=== PATIENT | male | born 1960 | race Caucasian/White ===

== ENCOUNTER 2025-09-09 22:09 | Inpatient (IN) | payer MEDICARE, MEDICAID, SELFPAY ==
[2025-09-09 22:12] VITALS: BP 133/81; PULSE 71; TEMP 36.8; O2SAT 96; BMI 24.4
--- NOTE | 2025-09-09 23:01 | PD.EDANKLE ---
Lower Extremity Injury RME/HPI General Chief Complaint: Ankle/Foot Injury Stated Complaint: FOOT PROBLEM Time Seen by Provider: 09/09/25 22:49 Arrival date/time: 09/09/25 22:09 65M with history of homelessness presents to ED with dirty feet, from working in the [employer]. Patient also wants some food/water. Limitations: no limitations and altered mental status Related Data Home Medications ?Medication ?Instructions ?Recorded ?Confirmed No Known Home Medications 11/19/18 11/19/18 Allergies Allergy/AdvReac Type Severity Reaction Status Date / Time No Known Allergies Allergy Verified 09/09/25 22:16 Review of Systems Musculoskeletal Musculoskeletal: Reports as per HPI and Reports back pain Past Medical History Past Medical History NEUROLOGIC: Negative Neurological Disorders or Seizures CARDIAC: Negative Cardiac Disorders or Congestive Heart Failure RESPIRATORY: Negative Chronic Obstructive Pulmonary Disease (COPD) GASTROINTESTINAL: Positive Gastrointestinal Disorders and Hemorrhoids GENITOURINARY: Negative Genitourinary Disorders or Renal Disease MUSCULOSKELETAL: Positive Arthritis; Negative Musculoskeletal Disorders ENDOCRINE: Negative Endocrine Disorders, Diabetes Mellitus Type 1 or Diabetes Mellitus Type 2 HEMATOLOGIC: Negative Blood Disorders PSYCHO/SOCIAL: Positive Depression (NO MEDS) OTHER HISTORY: Negative Falls, Blood Transfusions, Blood Transfusion Reaction or Anesthesia Reactions Family History FAMILY HISTORY: Positive Family Cardiac Disorders (mother-SC) and Family Cancer (brother-bladder) Surgical History SURGICAL: Positive Joint Replacement (right knee), Arthroscopy and Vasectomy Social History SMOKING STATUS: Current every day smoker ED Exam General Limitations: Present no limitations and altered mental status General appearance: Present alert, in no apparent distress and other (discheveled) Head Head exam: Present atraumatic Neck Neck exam: Present normal inspection, full ROM and trachea midline Chest Chest inspection: Present normal inspection and symmetric chest wall rise Neurological Exam Neurological exam: Present alert Psychiatric Psychiatric exam: Present normal affect and normal mood Skin Skin exam: Present warm, dry, intact and normal color Course Quality Measures none Orders Category Date Time Status Patient Condition Routine Admission 09/10/25 03:[address] in Observation Status Routine Admission 09/10/25 03:18 Active Activity as Tolerated Routine Care 09/10/25 03:19 Ordered COVID-19 Screening Questionnaire NOW Care 09/10/25 02:28 Active Decision to Admit X1 Care 09/10/25 02:28 Completed Intake and Output QSHIFT Care 09/10/25 03:30 Ordered Notify provider NEEDED Care 09/10/25 03:18 Active Vital Signs, Non-Routine Q6H Care 09/10/25 03:30 Ordered Vital Signs, Non-Routine Q6H Care 09/10/25 09:30 Ordered Vital Signs, Non-Routine Q6H Care 09/10/25 15:30 Ordered Vital Signs, Non-Routine Q6H Care 09/10/25 21:[address] head/brain wo con Stat Exams 09/10/25 00:[address] lumbar spine wo con Stat Exams 09/10/25 00:[address] thoracic spine wo con Stat Exams 09/10/25 00:28 Taken Alcohol, Blood Medical Stat Lab 09/10/25 01:12 Completed Ammonia Stat Lab 09/10/25 01:12 Completed Basic Metabolic Panel AM DRAW Lab 09/10/25 05:00 Ordered CBC AM DRAW Lab 09/11/25 05:00 Ordered CBC Stat Lab 09/10/25 01:12 Completed CMP [Comprehensive Metabolic Panel] Stat Lab 09/10/25 01:12 Completed Creatine Kinase AM DRAW Lab 09/10/25 05:00 Ordered Creatine Kinase Stat Lab 09/10/25 01:12 Completed Drug Screen,Urine Stat Lab 09/10/25 00:29 Ordered Lactate (Lactic Acid) Stat Lab 09/10/25 01:12 Completed Procalcitonin Stat Lab 09/10/25 01:12 Completed Urinalysis, C/S if Indicated Stat Lab 09/10/25 00:29 Ordered hs-CRP* Stat Lab 09/10/25 Ordered Acetaminophen Tab [Tylenol Tab] Med 09/10/25 03:17 Active 650 mg PO Q6H PRN Morphine* Inj Med 09/10/25 03:17 Active 2 mg IVP Q2H PRN Sodium Chloride 0.9% 1000 ml [Ns] 1,000 ml Med 09/10/25 03:30 Active IV 125 mls/hr bisacodyL [Dulcolax] Med 09/10/25 03:17 Active 10 mg PO QDAY PRN mg Hyd/Al Hyd/Carolee Susp [Maalox Susp] Med 09/10/25 03:17 Active 30 ml PO Q6H PRN Code Status Routine Oth 09/10/25 03:17 Ordered Vital Signs Vital signs: Vital Signs Temperature 98.2 F 09/09/25 22:12 Pulse Rate 71 09/09/25 22:12 Blood Pressure 133/81 H 09/09/25 22:12 Pulse Oximetry (%) 96 09/09/25 22:12 Oxygen Delivery Method Room Air 09/09/25 22:12 O2 at 96% on RA and WNLs Extremity Injury, Lower MDM Narrative MDM Narrative:: 65M with history of homelessness presents to ED with dirty feet, from working in the [employer]. Patient also wants some food/water. Physical exam reveals generally discheveled appearance. Feet are very dirty, but no open wounds, redness, or swelling. Speech somewhat delayed. Gait mostly normal. Patient is afebrile, calm, and alert. Spoke to daughter, Usha, who states he has been missing/homeless intermittently due to alcohol/drug use. Patient also has a strong family history of Alzheimer's. Spoke to patient again, who states his back has been hurting. Patient is redirectable, but speech/though process wanders. Telerad CTs unremarkable. No leukocytosis and no gross anemia. CMP unremarkable except for CK>1k. Ammonia normal. Procal/lactate normal. Spoke to ROLAN Rice MD, who will admit patient. Patient data External records reviewed:: None Clinical information provided by:: patient Social determinants that could affect healthcare access:: housing Patient has the following chronic illnesses:: homelessness How is presenting disease/condition affected by chronic disease/condition?: exacerbated by Evaluation data The following diagnostics were reviewed and interpreted by me:: lab results and radiology exam(s) Lab and/or radiology exams considered but not ordered:: ordered Interpretation Summary: above Medications / Prescriptions Medications or Prescriptions considered but not ordered:: ordered Medication administrations:: Medication Administration History Acetaminophen (Acetaminophen 325 Mg Tablet) 650 mg PO Q6H PRN PRN Reason: Fever >101.5 Stop: 10/10/25 03:16 Al Hydrox/Mg Hydrox/Simethicone (Mg Hyd/Al Hyd/Carolee (Maalox Reg) Susp 30 Ml Udc) 30 ml PO Q6H PRN PRN Reason: Indigestion Stop: 10/10/25 03:16 Bisacodyl (Bisacodyl 5 Mg Tabec) 10 mg PO QDAY PRN; Protocol PRN Reason: CONSTIPATION Stop: 10/10/25 03:16 Sodium Chloride (Ns) 1,000 mls @ 125 mls/hr IV .Q8H STEPHENIE Stop: 10/10/25 03:29 Morphine Sulfate (Morphine Sulf Inj 4 Mg/Ml Vial) 2 mg IVP Q2H PRN PRN Reason: PAIN SCALE 7-10 (Severe Stop: 09/15/25 03:16 above Consultations Consultation(s) initiated? (list below): Yes Diagnosis Extremity Injury, Lower Differential Diagnosis: ankle sprain and strain, acute internal derangement of knee, fracture of femur, fracture of hip, puncture wound of foot, fracture of toe, ankle fracture and other (homelessness, rhabdo, elevated creatine kinase) Most likely diagnosis given after review of the tests above:: rhabdo, homelessness Admission Indicated Admission indicated?: not indicated Admission Request Was there a request for admission?: No Disposition Plan Disposition Plan: Admit Discharge Plan Plan Patient Disposition: Other Care w/in Hosp ([facility]) Prescriptions/Referrals Prescriptions/Med Rec: No Action No Known Home Medications Referrals: No Primary/Family,Physician [Primary Care Provider] - In 1 week Problem List Clinical Impression: Rhabdomyolysis, Homelessness Patient/Caregiver Discharge Instructions Print Language: Ivorian Stand Alone Forms: Sandrine Award Info., Patient Portal Info Letter
[2025-09-10] VITALS (7 sets, daily range): BP systolic 102–120; BP diastolic 57–71; PULSE 60–98; RESP 16–18; TEMP 36.6–37.1; O2SAT 94–100; BMI 24.0
--- NOTE | 2025-09-10 00:28 | XR_ITS ---
Examination: CT brain head without contrast. 2-D sagittal coronal reconstructions Date and time of exam: September 10, 2025, 0048 hours INDICATIONS: Onset altered mental status today CTDI: vol (mGy): 51.70 DLP: (mGycm): 1127 Technique: Multiple CT axial sections of the brain have been obtained, 5 mm slice thickness. Contrast has not been administered. 2-D sagittal, coronal reconstructions have been obtained Low dose protocols were performed. One or more of the following dose reduction techniques were used; automated exposure control, adjustment of the mA and/or KV according to patient size, use of iterative reconstruction technique. Findings: No significant ventricular enlargement. Intra-axial or extra-axial hemorrhage density is not seen. No mass effect or midline shift Basal cisterns are not remarkable. Fourth ventricle is midline. Cranial vault intact. Impression: Negative for acute hemorrhage, mass effect or midline shift Advise clinical correlation and follow-up accordingly
--- NOTE | 2025-09-10 00:28 | XR_ITS ---
Examination: CT thoracic spine, without contrast. 2-D sagittal reconstructions. 2-D coronal reconstructions. 3-D reconstructions. Date and time of exam: September 10, 2025, 0058 hours INDICATIONS: Onset mid back pain today CTDI: vol (mGy): 62.05 DLP: (mGycm): 2494 Technique: Multiple 1.25 mm axial sections of the thoracic spine without intravenous contrast have been obtained. 2-D sagittal and coronal reconstructions have been obtained. 3-D reconstructions have been obtained. Low dose protocols were performed. One or more of the following dose reduction techniques were used; automated exposure control, adjustment of the mA and/or KV according to patient size, use of iterative reconstruction technique. Findings: Severe osteopenia Mild to moderate diffuse thoracic degenerative disc disease No thoracic fracture Mild to moderate thoracic spondylosis Thoracic pedicles and laminae appear intact No localized enlargement thoracic cord There is no significant focal thoracic disc protrusion IMPRESSION: Mild to moderate diffuse thoracic degenerative disc disease There is no significant focal thoracic disc protrusion Suggest follow-up MRI thoracic spine without contrast as clinically warranted
--- NOTE | 2025-09-10 00:28 | XR_ITS ---
Examination: CT lumbar spine, without contrast. 2-D sagittal reconstructions. 2-D coronal reconstructions. 3-D reconstructions. Date and time of exam: September 10, 2025, 0102 hours INDICATIONS: Onset severe back pain today CTDI: vol (mGy): 50.25 DLP: (mGycm): 1955 Technique: Multiple 1.25 mm axial sections of the lumbar spine without intravenous contrast have been obtained. 2-D sagittal and coronal reconstructions have been obtained. 3-D reconstructions have been obtained. Low dose protocols were performed. One or more of the following dose reduction techniques were used; automated exposure control, adjustment of the mA and/or KV according to patient size, use of iterative reconstruction technique. Findings: Severe osteopenia No lumbar vertebral body compression fracture Moderate to advanced diffuse lumbar degenerative disc disease, most severe L2-3, L3-L4 No spondylolisthesis Lumbar pedicles, laminae, transverse and posterior spinous processes are intact L5-S1 5 mm central lumbar disc bulge contiguous with the right and left S1 nerve roots L4-L5 4 mm central lumbar disc bulge L3-L4 no disc protrusion L2-L3 2 mm central subarticular osteophyte disc complex L1-L2 no disc protrusion IMPRESSION: Diffuse moderate to advanced lumbar degenerative disc disease, most severe at L2-L3, L3-L4 L5-S1 5 mm central lumbar disc bulge contiguous with the right and left S1 nerve roots L4-L5 4 mm central lumbar disc bulge No lumbar fracture
--- NOTE | 2025-09-10 01:24 | PRELIM_ITS ---
CT scan of the head without intravenous contrast (axial sections with sagittal and coronal reformats) September 10, 2025 at 0047 hours Clinical history: AMS. Comparison: No prior study is available for comparison. Findings: There is no evidence of intracranial hemorrhage, mass effect or midline shift. There are periventricular white matter hypodensities, compatible with chronic small vessel ischemia. There is mild volume loss. The calvarium is unremarkable. The mastoid air cells and the visualized paranasal sinuses are clear. Impression: No evidence of intracranial hemorrhage, mass effect or midline shift. Periventricular chronic small vessel ischemia and volume loss. Report Electronically Signed By: Huseyin Pimentel 09/10/2025 1:23:31 AM [EST]
[2025-09-10 01:29] LABS: Lactate (Lactic Acid) 1.8 mMol/L (0.4-2.0)
[2025-09-10 01:33] LABS: Basophils # (Auto) 0.0 Thou/mm3 (0.0-0.2); Basophils % (Auto) 0 % (0-2.5); Eosinophils # (Auto) 0.0 Thou/mm3 (0.0-0.5); Eosinophils % (Auto) 0 % (0-10); Hematocrit 36.5 % (41.0-53.0); Hemoglobin 12.5 g/dL (13.5-16.0); Immature Granulocytes Auto 0.04 Thou/mm3 (0.00-0.00); Lymphocytes # (Auto) 1.5 Thou/mm3 (1.0-4.8); Lymphocytes % (Auto) 17 % (10-50); Mean Corpuscular HGB Conc 34.2 g/dl (31.0-37.0); Mean Corpuscular Hemoglobin 34.2 pg (25.0-35.0); Mean Corpuscular Volume 100 fL (80-100); Monocytes # (Auto) 0.7 Thou/mm3 (0.0-0.8); Monocytes % (Auto) 8 % (0-12); Neutrophils # (Auto) 6.6 Thou/mm3 (1.8-7.7); Neutrophils % (Auto) 74 % (37-80); Nucleated Red Blood Cell # 0.00 Thou/mm3 (0.00-0.00); Nucleated Red Blood Cell % 0 /100 WBC (0); Platelet Count 260 Thou/mm3 (140-440); RDW Standard Deviation 51.3 fL (35.1-43.9); Red Blood Count 3.66 Miln/mm3 (4.50-5.90); White Blood Count 8.9 Thou/mm3 (3.8-10.6)
--- NOTE | 2025-09-10 01:42 | PRELIM_ITS ---
CT scan of the lumbar spine without intravenous contrast (axial sections with sagittal and coronal reformats) September 10, 2025 0058 hours Clinical History: Back pain Comparison: No prior study is available for comparison. Findings: There is straightening of the lumbar lordosis. There are multilevel moderate degenerative changes in the form of marginal osteophytes, decreased disc height and facet arthropathy, predominantly at L2/3 level with disc osteophyte complex causing mild spinal canal and moderate to severe bilateral neural foraminal narrowing. There are diffuse disc bulges at L3/4 and L4/5 levels causing mild spinal canal and moderate bilateral neural foraminal narrowing.There is posterior disc bulges at L5/S1 level causing mild spinal canal and mild bilateral neural foraminal narrowing.There are degenerative changes and Schmorl's nodes at the inferior end plate of L2 and the superior end plate of L3. There is multilevel gas density within the intervertebral discs, denoting disc degeneration. There is no acute fracture or subluxation. The vertebral body height are normal. The soft tissues are unremarkable. The abdominal aorta and iliac arteries demonstrate atheromatous calcification without evidence of aneurysm. Impression: No evidence of acute pathology. Multilevel degenerative disc disease predominantly at L2/3, L3/4 and L4/5 levels as described. Recommend clinical correlation. Other findings as described above. Report Electronically Signed By: Huseyin Pimentel 09/10/2025 1:41:22 AM [EST]
--- NOTE | 2025-09-10 01:54 | PRELIM_ITS ---
CT scan of the thoracic spine without intravenous contrast (axial sections with sagittal and coronal reformats) September 10, 2025 0049 hours Clinical History: Back pain. Comparison: No prior study is available for comparison. Findings: The thoracic vertebrae are normally aligned. There are multilevel moderate degenerative changes in the form of marginal osteophytes and facet arthropathy. There are multilevel Schmorl's nodes, the largest seen at the inferior end plate of T10. There is gas density within T10/11, T11/12 and T12/L1 intervertebral discs, denoting disc degeneration. The vertebral body and intervertebral disc height is maintained. There is central and left paracentral disc protrusion at T7/8 level causing mild spinal canal narrowing. No neural foraminal narrowing. There is right paracentral disc protrusion at T10/11 level causing mild spinal canal narrowing. No neural foraminal narrowing. There is asymmetric diffuse disc bulge at T11/12 level causing mild spinal canal and mild left neural foraminal narrowing. There is no acute fracture or subluxation. There is no pre or paravertebral soft tissue abnormality. Impression: No evidence of acute pathology. Degenerative changes as described. Report Electronically Signed By: Huseyin Pimentel 09/10/2025 1:53:59 AM [EST]
[2025-09-10 02:06] LABS: Ammonia < 10 uMol/L (11-32)
[2025-09-10 02:14] LABS: Alanine Aminotransferase 27 U/L (10-49); Albumin, Serum 4.0 gm/dL (3.4-4.8); Anion Gap 13 (7-16); Aspartate Amino Transferase 71 U/L (0-34); BUN/Creatinine Ratio 20 Ratio (12-20); Bilirubin,Total 1.1 mg/dL (0.3-1.2); Blood Urea Nitrogen 24 mg/dL (9-23); Calcium 9.0 mg/dL (8.3-10.6); Carbon Dioxide 22.7 mMol/L (20.0-31.0); Chloride 102 mMol/L (98-107); Creatine Kinase 1124 U/L (34-171); Creatinine (Component) 1.2 mg/dL (0.6-1.3); Estimated Creatinine Clearance 67.5 mL/min (>60); Glucose 73 mg/dL (74-106); Osmolality,Calculated 278 (275-295); Potassium 3.7 mMol/L (3.4-5.1); Sodium 138 mMol/L (136-145); Total Protein 6.7 gm/dL (5.7-8.2); eGFR > 60 See Note
[2025-09-10 02:15] LABS: Albumin/Globulin Ratio 1.5 (1.2-2.2); Alcohol, Blood Medical < 3.0 mg/dL (0-10.0); Alkaline Phosphatase 74 U/L (46-116); Calcium (Corrected) 9.0 mg/dL (8.5-10.1); Globulin 2.7 gm/dL (2.3-3.5)
[2025-09-10 02:17] LABS: Procalcitonin 0.09 ng/ml (0.0-0.49)
--- NOTE | 2025-09-10 02:58 | PD.HHHP ---
Documentation for date of: 09/10/25 HPI - Hospitalist History of Present Illness History of present illness: Source: ED records and the patient CC: Back pain, foot pain, confusion HPI: The patient is a 65-year- male with alcohol use, arthritis, gallbladder surgery. The patient presents with back pain, foot pain, confusion. Onset of symptom is unknown. Duration is unknown. Back pain described as 5/5 in intensity. Aggravating/relieving factors, none reported. Associated symptoms include __. Pertinent negative-no fever no headache. Patient is homeless. Patient is not oriented. He is not a good historian. He has alcohol use. There was no recent procedures and no change in medications. No use of OTC medications There was no recent travel and no sick contacts. No recent trauma or falls. His blood work showed mild anemia and high creatinine kinase possible rhabdo myelitis.. Patient is FULL CODE. Past medical history: No diabetes, no hypertension, no stroke, no cancer Surgical history: no appendectomy, +gallbladder surgery Personal history: non smoker, + ETOH drinker, no recreational drug use. Family history: no diabetes, no hypertension, no heart disease, no cancer. Review of Systems Review of Systems Systems Reviewed: All systems reviewed, normal except as documented Meds Home Medications and Allergies Home Medications ?Medication ?Instructions ?Recorded ?Confirmed ?Type No Known Home Medications 11/19/18 11/19/18 History Allergies Allergy/AdvReac Type Severity Reaction Status Date / Time No Known Allergies Allergy Verified 09/09/25 22:16 Exam Vital Signs Temp Pulse Resp BP Pulse Ox O2 Del Method 98.1 F 60 18 119/69 98 Room Air 09/10/25 02:54 09/10/25 02:54 09/10/25 02:54 09/10/25 02:54 09/10/25 02:54 09/10/25 02:54 Gen: alert, not not oriented, has word finding difficulty Skin: warm, good turgor, no rash HEENT: NCAT, LILLI, no nasoaural discharge, dry mucous membranes Neck: supple, no JVD, no thyromegaly Lungs: clear to auscultation CV: regular rate and rhythm, no murmurs, no edema Abd: soft and non tender, normoactive bowel sounds : no CVA tenderness Ext: no calf tenderness. Neuro: alert, oriented, non focal Psych: calm, not agitated. flat affect. Results - Hospitalist Labs Diagrams: 09/10/25 01:12 09/10/25 01:12 Labs: Short CBC 09/10/25 Range/Units 01:12 WBC 8.9 (3.8-10.6) Thou/mm3 Hgb 12.5 L (13.5-16.0) g/dL Hct 36.5 L (41.0-53.0) % Plt Count 260 (140-440) Thou/mm3 BMP 09/10/25 01:12 Sodium 138 Potassium 3.7 Chloride 102 Carbon Dioxide 22.7 BUN 24 H Creatinine 1.2 Glucose 73 L Calcium 9.0 Cardiac Enzymes 09/10/25 Range/Units 01:12 Total Creatine Kinase 1124 H (34-171) U/L Liver Function 09/10/25 Range/Units 01:12 Total Bilirubin 1.1 (0.3-1.2) mg/dL AST 71 H (0-34) U/L ALT 27 (10-49) U/L Alkaline Phosphatase 74 (46-116) U/L Albumin 4.0 (3.4-4.8) gm/dL Assessment & Plan -Hospitalist Patient Synopsis Assessment and plan: 1. Back pain, early rhabdomyolysis - obs for IV fluid, recheck CK in am. CT om thoracic anc lumbar spine are pending. Per Marge JIN CT imaging results were negative. - PT eval. - IV Morphine for pain control. - PT eval. 2. Foot pain - obtain xray both feet - CRP 3. Homelessness - will refer to social services designee 4. 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 Give thiamine and folic acid. - advised alcohol cesssation Quality Measures Quality Measures none Advance care planning discussed with:: patient, child and other
[2025-09-10] MEDS: SODIUM CHLORIDE 0.9% 1000 ML 1,000 ML 125 ML IV ×3 (03:34→21:20)
--- NOTE | 2025-09-10 05:03 | PC.NURSE ---
DR. ARTURO NGUYNE POC DISCUSSED, MD NOTIFY PT LAST DRINK WAS ALCOHOL DRINK WAS YESTERDAY, BLISTER TO LEFT KNEE, AND PT IS MISSING A DIET. MD WILL REVIEW CHART ADD A DIET. PT IS ALERT AND ORIENTED TO SELF.
[2025-09-10 06:28] LABS: Anion Gap 9 (7-16); BUN/Creatinine Ratio 22 Ratio (12-20); Blood Urea Nitrogen 24 mg/dL (9-23); Calcium 8.4 mg/dL (8.3-10.6); Carbon Dioxide 24.9 mMol/L (20.0-31.0); Chloride 103 mMol/L (98-107); Creatine Kinase 960 U/L (34-171); Creatinine (Component) 1.1 mg/dL (0.6-1.3); Estimated Creatinine Clearance 73.6 mL/min (>60); Glucose 174 mg/dL (74-106); Osmolality,Calculated 281 (275-295); Potassium 3.2 mMol/L (3.4-5.1); Sodium 137 mMol/L (136-145); eGFR > 60 See Note
[2025-09-10] MEDS: THIAMINE 100 MG TABLET PO ×2 (08:30→20:07)
[2025-09-10] MEDS: FOLIC ACID 1 MG TABLET PO ×2 (08:30→20:07)
[2025-09-10 09:00] LABS: Magnesium 1.7 mg/dL (1.6-2.6); Phosphorous 2.7 mg/dL (2.4-5.1)
--- NOTE | 2025-09-10 10:00 | PC.NURSE ---
Dr. Yanes notified of no diet ordered, wound care consult request for blister to left knee and request for CIWA score protocol due to pt stating last drink is yesterday and he is a daily drinker. stated he will review chart.
--- NOTE | 2025-09-10 13:45 | PC.SS ---
RECORD CENTER COORDINATOR conducted phone contact with patient?s daughter, Usha Rodriguez ; to conduct initial assessment due to patient?s level of confusion.? Patient is homeless.? Per daughter, patient has been in [facility] for approximately 1.5 months.? Patient had been residing in [place] with son, Song.? Following Song?s demise patient re-located to [place].? Patient had previously been residing in [place], [place].? Patient possesses a history of alcohol dependency.? Patient does not utilize DME to assist with ambulation.? Patient does not require the use of home oxygen.? Patient possesses ability to complete ADL?s independently.? Patient possesses SSI supplementation.? Patient also possesses a pickup which is currently impounded in [place], [place].? Patient?s surrogate medical decision maker is daughter, Usha Rodriguez.? Daughter resides in [place].? Daughter reports that patient has misplaced cell phone causing contact barrier with patient.? Discussed long term placement with daughter upon patient?s discharge.? Daughter acknowledged d/c plan to long term or inpatient rehabilitation to address alcohol dependency.? RECORD CENTER COORDINATOR informed daughter that patient would have to agree to either discharge options.? No further discharge needs identified by the patient.? No further intervention required at this time, social psychologist will be available to address any further concerns.? Next of Kin: Usha Rodriguez D/C Plan: Pending
--- NOTE | 2025-09-10 13:50 | PC.SS ---
TICKET PRINTER informed by bedside nurse plan to start patient on CIWA protocal.
--- NOTE | 2025-09-10 14:15 | PD.HHPROG ---
Documentation for date of: 09/10/25 Subjective - Hospitalist Subjective Interval history: Patient seen and examined at bedside this morning. Appears comfortable and denies any new complaints. Patient is able to answer question and follow commands but is confused and unable to carry out conversation normally. CIWA score has been 4-10 throughout the day. Started on CIWA protocol with oral lorazepam. Also started on diet and and wound care for his knee wound. With patient's profound confusion, also appears weak although gait was not fully evaluated, does not have any ophthalmoplegia but with history of alcohol abuse, cannot rule out Wernicke's encephalopathy, we will start him on high-dose thiamine. Continues to be on aggressive IV hydration for rhabdomyolysis. Creatinine kinase is downtrending. Review of Systems Review of Systems ROS Unobtainable: unobtainable due to mental status Exam Vital Signs Temp Pulse Resp BP Pulse Ox O2 Del Method 98.4 F 63 18 111/71 94 L Room Air 09/10/25 20:00 09/10/25 20:00 09/10/25 20:00 09/10/25 20:00 09/10/25 20:00 09/10/25 20:00 Narrative Gen: alert, able to answer his name, date of but appears confused and unable to answer all questions., Unable to follow commands. Skin: warm, good turgor, no rash HEENT: NCAT, LILLI, no nasoaural discharge, dry mucous membranes Neck: supple, no JVD, no thyromegaly Lungs: clear to auscultation bilaterally, no wheezing or crackles CV: regular rate and rhythm, no murmurs, no edema Abd: soft and non tender, normoactive bowel sounds Ext: no calf tenderness. Neuro: Alert but confused, unable to carry out full conversation, forgetful Psych: calm, not agitated Objective - Hospitalist Labs Diagram: 09/10/25 01:12 09/10/25 05:25 Labs: Laboratory Results - last 24 hr 09/10/25 09/10/25 09/10/25 01:12 05:25 17:53 WBC 8.9 RBC 3.66 L Hgb 12.5 L Hct 36.5 L MCV 100 MCH 34.2 MCHC 34.2 RDW Std Deviation 51.3 H Plt Count 260 Neut % (Auto) 74 Lymph % (Auto) 17 [place] % (Auto) 8 Eos % (Auto) 0 Baso % (Auto) 0 Neut # (Auto) 6.6 Lymph # (Auto) 1.5 [place] # (Auto) 0.7 Eos # (Auto) 0.0 Baso # (Auto) 0.0 Immature Gran # (Auto) 0.04 H Absolute Nucleated RBC 0.00 Immature Gran % 1 H Nucleated RBC % 0 Sodium 138 137 Potassium 3.7 3.2 L D Chloride 102 103 Carbon Dioxide 22.7 24.9 Anion Gap 13 9 BUN 24 H 24 H Creatinine 1.2 1.1 Estim Creat Clear Calc 67.5 73.6 eGFR > 60 > 60 BUN/Creatinine Ratio 20 22 H Glucose 73 L 174 H D Calculated Osmolality 278 281 Lactic Acid 1.8 Calcium 9.0 8.4 Corrected Calcium 9.0 Phosphorus 2.7 Magnesium 1.7 Total Bilirubin 1.1 AST 71 H ALT 27 Alkaline Phosphatase 74 Ammonia < 10 L Total Creatine Kinase 1124 H 960 H D Total Protein 6.7 Albumin 4.0 Globulin 2.7 Albumin/Globulin Ratio 1.5 Procalcitonin 0.09 Ur Collection Type Clean Catch Urine Color Yellow Urine Clarity Clear Urine pH 6.0 Ur Specific [place] 1.015 Urine Protein Negative Urine Glucose (UA) Negative Urine Ketones Negative Urine Blood Negative Urine Nitrite Negative Urine Bilirubin Negative Urine Urobilinogen (Auto) 3.0 Ur Leukocyte Esterase Negative Urine RBC < 1 Urine WBC 1 Ur Squamous Epith Cells 0 Urine Bacteria None Ur Culture Indicated? Not Indicated Urine Opiates Screen Negative Urine Fentanyl Screen Negative Ur Barbiturates Screen Negative U Amphetamin/Meth Scrn Negative U Benzodiazepines Scrn Negative U Cocaine Metab Screen Negative U Marijuana (THC) Screen Negative Ethyl Alcohol < 3.0 Assessment & Plan Patient Synopsis Patient is a 65 years old male with past medical history of alcohol abuse, arthritis, gallbladder surgery who presented with back pain, foot pain and confusion. Admitted overnight for management of rhabdomyolysis, alcohol abuse. #Back pain, early rhabdomyolysis - Continues to be on IV hydration, creatinine level downtrending. - Lumbar spine CT showed diffuse moderate to advanced lumbar degenerative disc disease, most severe at L2-L3, L3-L4; L5-S1 5 mm central lumbar disc bulge contiguous with the right and left S1 nerve roots, L4-L5 4 mm central lumbar bulge disc. Thoracic spine CT also showed mild to moderate diffuse thoracic degenerative disc disease. Unable to assess reliably about lower extremity neurological examination as patient is confused - PT eval. - IV Morphine for pain control. #Alcohol use with possible Wernicke, Korsakoff encephalopathy -Continues to be on CIWA protocol. - Started on thiamine 500 mg 3 times daily - CIWA score has been around 4-10, we will monitor closely - Social service referral, we will direct care counselor extensively regarding alcohol cessation once patient's mentation improves #Foot pain #New blister Wound care following #Homelessness - Referral to health and social care teacher CODE STATUS: Full code DVT prophylaxis: Heparin SC every 12 hours Diet: Regular diet Disposition: Continues to be inpatient for management of rhabdomyolysis, alcohol withdrawal, possible Wernicke's encephalopathy Mery Yanes MD Time Spent with Patient Time: Total time spent is greater than 50% in coordination of care (as documented) at patient's floor/unit and/or counseling patient: Time with patient: Greater than 35 minutes Reason for Continued Stay Reason for continued stay: further monitoring Quality Measures Quality Measures none Advance care planning discussed with:: patient
--- NOTE | 2025-09-10 17:32 | PC.PT ---
Patient is safe to ambulate to the bathroom and in the halls with 1 staff and is encouraged to use a FWW but he most likely will refuse. RN made aware.
[2025-09-10 18:52] LABS: Collection Type, Urine Clean Catch; Squamous Epithelial Cell,Urine 0 /hpf (0-5)
[2025-09-10 19:02] LABS: Bilirubin,Urine Negative (Negative); Blood,Urine Negative (Negative); Clarity,Urine Clear (Clear/Hazy); Color,Urine Yellow (Lt Yel-Yel); Culture Indicated,Urine Not Indicated; Glucose, Urine Negative (Negative); Ketones,Urine Negative (Negative); Leukocyte Esterase,Urine Negative (Negative); Nitrite,Urine Negative (Negative); PH,Urine 6.0 (5.0-7.0); Protein,Urine Negative (Neg - Trace); RBC,Urine < 1 /hpf (0-3); Specific Gravity,Urine 1.015 (1.001-1.035); Urobilinogen,Urine 3.0 mg/dL (0.0-1.0); WBC,Urine 1 /hpf (0-5)
[2025-09-10 19:16] LABS: Amphetamine/Methamp Scrn,U Negative (Negative); Barbiturate Screen,Urine Negative (Negative); Benzodiazepines Screen,Urine Negative (Negative); Benzoylecgonine Screen, Ur Negative (Negative); Fentanyl Screen,Urine Negative (Negative); Opiate Screen,Urine Negative (Negative); THC Screen,Urine Negative (Negative)
--- NOTE | 2025-09-10 22:00 | PC.NURSE ---
Verified with pharmacist regarding the Thiamine 500mg IVP, per pharmacist it's okay to give this meds per IV push with this dosage.
--- NOTE | 2025-09-10 22:34 | PC.NURSE ---
Pt is very restless, trying to get out of bed, MD Johnson made aware, new order amde to give Haldol 2mg IM x1.
[2025-09-10] MEDS: HALOPERIDOL LACT INJ 5 MG/ML VIAL 2 MG IM (22:46)
[2025-09-11] VITALS (7 sets, daily range): BP systolic 109–132; BP diastolic 66–80; PULSE 60–73; RESP 16–19; TEMP 36.1–37.1; O2SAT 95–98; BMI 14.0
[2025-09-11] MEDS: THIAMINE INJ 100 MG/ML VIAL 2 ML 500 MG IVP ×3 (05:27→21:51)
[2025-09-11] MEDS: SODIUM CHLORIDE 0.9% 1000 ML 1,000 ML 125 ML IV (05:28)
[2025-09-11 05:56] LABS: Basophils # (Auto) 0.0 Thou/mm3 (0.0-0.2); Basophils % (Auto) 0 % (0-2.5); Eosinophils # (Auto) 0.0 Thou/mm3 (0.0-0.5); Eosinophils % (Auto) 1 % (0-10); Hematocrit 33.0 % (41.0-53.0); Hemoglobin 11.3 g/dL (13.5-16.0); Immature Granulocytes Auto 0.05 Thou/mm3 (0.00-0.00); Lymphocytes # (Auto) 1.3 Thou/mm3 (1.0-4.8); Lymphocytes % (Auto) 19 % (10-50); Mean Corpuscular HGB Conc 34.2 g/dl (31.0-37.0); Mean Corpuscular Hemoglobin 34.3 pg (25.0-35.0); Mean Corpuscular Volume 100 fL (80-100); Monocytes # (Auto) 0.6 Thou/mm3 (0.0-0.8); Monocytes % (Auto) 9 % (0-12); Neutrophils # (Auto) 4.9 Thou/mm3 (1.8-7.7); Neutrophils % (Auto) 71 % (37-80); Nucleated Red Blood Cell # 0.00 Thou/mm3 (0.00-0.00); Nucleated Red Blood Cell % 0 /100 WBC (0); Platelet Count 205 Thou/mm3 (140-440); RDW Standard Deviation 52.1 fL (35.1-43.9); Red Blood Count 3.29 Miln/mm3 (4.50-5.90); White Blood Count 6.9 Thou/mm3 (3.8-10.6)
[2025-09-11 06:27] LABS: Alanine Aminotransferase 19 U/L (10-49); Albumin, Serum 3.2 gm/dL (3.4-4.8); Albumin/Globulin Ratio 1.5 (1.2-2.2); Alkaline Phosphatase 59 U/L (46-116); Anion Gap 8 (7-16); Aspartate Amino Transferase 41 U/L (0-34); BUN/Creatinine Ratio 14 Ratio (12-20); Bilirubin,Total 0.9 mg/dL (0.3-1.2); Blood Urea Nitrogen 11 mg/dL (9-23); Calcium 8.2 mg/dL (8.3-10.6); Calcium (Corrected) 8.8 mg/dL (8.5-10.1); Carbon Dioxide 25.3 mMol/L (20.0-31.0); Chloride 108 mMol/L (98-107); Creatinine (Component) 0.8 mg/dL (0.6-1.3); Estimated Creatinine Clearance 101.3 mL/min (>60); Globulin 2.1 gm/dL (2.3-3.5); Glucose 88 mg/dL (74-106); Magnesium 1.7 mg/dL (1.6-2.6); Osmolality,Calculated 279 (275-295); Phosphorous 1.8 mg/dL (2.4-5.1); Potassium 3.6 mMol/L (3.4-5.1); Sodium 141 mMol/L (136-145); Total Protein 5.3 gm/dL (5.7-8.2); eGFR > 60 See Note
[2025-09-11] MEDS: HEPARIN SOD INJ 5000 UNIT/ML VIAL SC ×2 (08:07→20:21)
[2025-09-11] MEDS: FOLIC ACID 1 MG TABLET PO ×2 (08:07→20:21)
[2025-09-11 09:35] LABS: Creatine Kinase 364 U/L (34-171)
[2025-09-11] MEDS: NAPH,KPH MBDB 1 PACKET (1.5 GM) PO (10:07)
--- NOTE | 2025-09-11 13:38 | PD.HHPROG ---
Documentation for date of: 09/11/25 Subjective - Hospitalist Subjective Interval history: Patient seen and examined at bedside this morning. Appears comfortable. Continues to be confused, is calm and cooperative but unable to carry out conversation, also seems to have trouble with memory. CIWA score has been ranging from 4-8 but most of the exposure is coming from his confusion. Has been receiving as needed lorazepam. Patient was started on high-dose IV thiamine since yesterday. Head CT obtained on 1016 was negative for acute intracranial pathology. We will obtain neurology consult and plan continue to monitor his mentation closely. Creatinine kinase level has been downtrending nicely, 364 this morning, patient has been able to tolerate able to tolerate his diet well with good fluid intake, we will discontinue IV hydration. Review of Systems Review of Systems ROS Unobtainable: unobtainable due to mental status Exam Vital Signs Temp Pulse Resp BP Pulse Ox O2 Del Method 98.2 F 60 19 122/75 97 Room Air 09/11/25 20:00 09/11/25 20:00 09/11/25 20:00 09/11/25 20:00 09/11/25 20:00 09/11/25 12:00 Narrative Gen: alert, able to answer his name, date of but appears confused and unable to answer all questions or carry out conversation Skin: warm, good turgor, no rash HEENT: NCAT, LILLI, no nasoaural discharge, dry mucous membranes Neck: supple, no JVD, no thyromegaly Lungs: clear to auscultation bilaterally, no wheezing or crackles CV: regular rate and rhythm, no murmurs, no edema Abd: soft and non tender, normoactive bowel sounds Ext: no calf tenderness. Blisters noted around his left knee Neuro: Alert but confused, unable to carry out full conversation, forgetful, no focal neurological deficit Psych: calm, not agitated Objective - Hospitalist Labs Diagram: 09/11/25 04:38 09/11/25 04:38 Labs: Laboratory Results - last 24 hr 09/11/25 04:38 WBC 6.9 RBC 3.29 L Hgb 11.3 L Hct 33.0 L MCV 100 MCH 34.3 MCHC 34.2 RDW Std Deviation 52.1 H Plt Count 205 D Neut % (Auto) 71 Lymph % (Auto) 19 [place] % (Auto) 9 Eos % (Auto) 1 Baso % (Auto) 0 Neut # (Auto) 4.9 Lymph # (Auto) 1.3 [place] # (Auto) 0.6 Eos # (Auto) 0.0 Baso # (Auto) 0.0 Immature Gran # (Auto) 0.05 H Absolute Nucleated RBC 0.00 Immature Gran % 1 H Nucleated RBC % 0 Sodium 141 Potassium 3.6 Chloride 108 H Carbon Dioxide 25.3 Anion Gap 8 BUN 11 Creatinine 0.8 Estim Creat Clear Calc 101.3 eGFR > 60 BUN/Creatinine Ratio 14 Glucose 88 D Calculated Osmolality 279 Calcium 8.2 L Corrected Calcium 8.8 Phosphorus 1.8 L Magnesium 1.7 Total Bilirubin 0.9 AST 41 H ALT 19 Alkaline Phosphatase 59 D Total Creatine Kinase 364 H D Total Protein 5.3 L Albumin 3.2 L D Globulin 2.1 L Albumin/Globulin Ratio 1.5 Assessment & Plan Patient Synopsis Patient is a 65 years old male with past medical history of alcohol abuse, arthritis, gallbladder surgery who presented with back pain, foot pain and confusion. Admitted overnight for management of rhabdomyolysis, alcohol abuse. #Alcohol use with possible Wernicke, Korsakoff encephalopathy - Continues to be on CIWA protocol. - Continues to be on thiamine 500 mg 3 times daily - CIWA score has been around 4-8, we will monitor closely - Social service referral, we will sexual abuse counsellor extensively regarding alcohol cessation once patient's mentation improves - Patient is not showing improvement in his mentation despite IV fluids, correction of electrolytes, IV thiamine, we will obtain neurology consult #Back pain, early rhabdomyolysis - Lumbar spine CT showed diffuse moderate to advanced lumbar degenerative disc disease, most severe at L2-L3, L3-L4; L5-S1 5 mm central lumbar disc bulge contiguous with the right and left S1 nerve roots, L4-L5 4 mm central lumbar bulge disc. Thoracic spine CT also showed mild to moderate diffuse thoracic degenerative disc disease. Unable to assess reliably about lower extremity neurological examination as patient is confused - PT eval. - IV Morphine for pain control. - Creatinine level continues to downtrend, we will discontinue IV fluids #Foot pain #New blister - Wound care following - Denies foot pain currently #Homelessness - Referral to public health social worker CODE STATUS: Full code DVT prophylaxis: Heparin SC every 12 hours Diet: Regular diet Disposition: Continues to be inpatient for management of rhabdomyolysis, alcohol withdrawal, possible Wernicke's encephalopathy Mery Yanes MD Time Spent with Patient Time: Total time spent is greater than 50% in coordination of care (as documented) at patient's floor/unit and/or counseling patient: Time with patient: Greater than 35 minutes Reason for Continued Stay Reason for continued stay: further monitoring Quality Measures Quality Measures none Advance care planning discussed with:: patient
--- NOTE | 2025-09-11 19:49 | PC.NURSE ---
MD Zhu came and seen and examined the pt.
[2025-09-11] MEDS: HALOPERIDOL LACT INJ 5 MG/ML VIAL 2 MG IV (23:05)
--- NOTE | 2025-09-11 23:55 | PC.NURSE ---
Code monica initiated DT pt being agitated and pt is looking for his phone, explained to the pts that he doesnt have any phone with him when he came to the hospital and saying that he needs to find his phone.Pt walked out to the nurse station and wandering. Pt send back to the room explained to him that he was in the hospital.
--- NOTE | 2025-09-11 23:57 | ESCONSULT_ITS ---
History of Present Illness Data of Consult Requesting Physician: Doug Johnson MD Primary Care Provider: Physician No Primary/Family Consult Narrative History of present illness: Mr. Rodriguez is a 65-year- male with chronic drug and alcohol use and osteoarthritis presented with back pain, foot pain, confusion. Patient is homeless. Patient is confused, disoriented, and not a good historian. No history of recent trauma or falls. Workup in the ER: Labs showed mild anemia and elevated CK. Neurology was consulted to evaluate for altered mental status. cc:: cc: Doug Johnson MD Review of Systems Review of Systems ROS Unobtainable: unobtainable due to medical condition Past Medical History Past Medical History NEUROLOGIC: Negative Neurological Disorders or Seizures CARDIAC: Negative Cardiac Disorders or Congestive Heart Failure RESPIRATORY: Negative Chronic Obstructive Pulmonary Disease (COPD) GASTROINTESTINAL: Positive Gastrointestinal Disorders and Hemorrhoids GENITOURINARY: Negative Genitourinary Disorders or Renal Disease MUSCULOSKELETAL: Positive Arthritis; Negative Musculoskeletal Disorders ENDOCRINE: Negative Endocrine Disorders, Diabetes Mellitus Type 1 or Diabetes Mellitus Type 2 HEMATOLOGIC: Negative Blood Disorders PSYCHO/SOCIAL: Positive Depression (NO MEDS) OTHER HISTORY: Negative Falls, Blood Transfusions, Blood Transfusion Reaction or Anesthesia Reactions Family History FAMILY HISTORY: Positive Family Cardiac Disorders (mother-IA) and Family Cancer (brother-bladder) Surgical History SURGICAL: Positive Joint Replacement (right knee), Arthroscopy and Vasectomy Social History SMOKING STATUS: Current every day smoker Meds Home Medications and Allergies Home Medications ?Medication ?Instructions ?Recorded ?Confirmed ?Type No Known Home Medications 11/19/1808/25 History Allergies Allergy/AdvReac Type Severity Reaction Status Date / Time No Known Allergies Allergy Verified 09/09/25 22:16 Exam - Neurology Vital Signs Temp Pulse Resp BP Pulse Ox O2 Del Method 98.2 F 69 19 122/75 97 Room Air 09/11/25 20:00 09/11/25 22:21 09/11/25 20:00 09/11/25 20:00 09/11/25 20:00 09/11/25 12:00 Narrative Exam GENERAL APPEARANCE: Well hydrated, well-nourished in no acute distress. HEENT: Normocephalic, atraumatic, extraocular movements intact. Pupils: Equal reacting to light and accommodation NECK: Supple, no JVD or bruits. CARDIOVASULAR: Heart: S1, S2 heard, regular without S3-S4 or murmur no rubs or gallops. LUNGS/CHEST: Clear to auscultation bilaterally. No rails, rhonchi, or wheezing. Normal inspection. ABDOMEN: Soft, nontender, with normal bowel sounds. No pulsatile masses. No rebound, rigidity, or guarding. Normal inspection and palpation. EXTREMITIES: Normal inspection and palpation. No edema, clubbing or cyanosis. SKIN: Warm and dry without rashes. Normal inspection. MUSCULOSKELETAL: No cervical, thoracic, lumbar or midline bony tenderness. Normal inspection. NEURO: Alert, awake and oriented x1. Cranial nerves: II through XII grossly intact. Speech and language: Normal with no dysarthria or dysphasia. Motor system: Tone and bulk: Normal: Strength: 5 out of 5 in all 4 extremities; No pronator drift noted. Deep tendon reflexes: 2+ bilaterally symmetrical. Plantar reflex: Downgoing bilaterally. Sensory system: Intact to all modalities of sensation bilaterally. Coordination: Intact to [id number] and [id number] test bilaterally. No ataxia, no dysmetria, or dysdiadochokinesia noted. No intention tremors noted. Gait: Normal. Toe, heel, tandem walk all are normal. No signs of meningeal irritation noted. PSYCHIATRIC: Normal mood and affect. Results Labs 09/12/25 04:30 09/12/25 04:30 Labs: Short CBC 09/11/25 Range/Units 04:38 WBC 6.9 (3.8-10.6) Thou/mm3 Hgb 11.3 L (13.5-16.0) g/dL Hct 33.0 L (41.0-53.0) % Plt Count 205 D (140-440) Thou/mm3 BMP 09/11/25 04:38 Sodium 141 Potassium 3.6 Chloride 108 H Carbon Dioxide 25.3 BUN 11 Creatinine 0.8 Glucose 88 D Calcium 8.2 L Cardiac Enzymes 09/11/25 Range/Units 04:38 Total Creatine Kinase 364 H D (34-171) U/L Liver Function 09/11/25 Range/Units 04:38 Total Bilirubin 0.9 (0.3-1.2) mg/dL AST 41 H (0-34) U/L ALT 19 (10-49) U/L Alkaline Phosphatase 59 D (46-116) U/L Albumin 3.2 L D (3.4-4.8) gm/dL Assessment & Plan Assessment and plan (1) Altered mental status: Status: Acute Assessment and plan: Most likely secondary to progressive cognitive impairment with baseline dementia/chronic alcohol use/nutritional deficiency. Will follow-up with MRI brain and EEG to evaluate further. Recommend: To check B12, thiamine, folate, T4, TSH, RPR, HIV, lipid panel to for secondary causes of memory loss Report to [facility] for license suspension for safety. He needs placement for long-term as he has severe cognitive impairment Recommend to start him on donepezil 5 mg at bedtime. Consider increasing the dose after a month and subsequently add memantine for preventing progression. (2) Rhabdomyolysis: Status: Acute Assessment and plan: Improving with hydration
[2025-09-12] VITALS (7 sets, daily range): BP systolic 119–158; BP diastolic 72–89; PULSE 54–90; RESP 18–19; TEMP 36.5–37.1; O2SAT 94–97
[2025-09-12] MEDS: MIDAZOLAM INJ 1 MG/ML VIAL 2 ML 2 MG IVP (00:20)
[2025-09-12] MEDS: NICOTINE PATCH 21 MG/24 HR PATCH.TD24 TOP (00:31)
--- NOTE | 2025-09-12 01:00 | PC.NURSE ---
Suzanne ace called overhead DT pt wanting to wandering around after giving the Versed 2mg IVP. Pt pulled out his registered nurse cardiac and removed his gown. Pt put back to bed. Pt went back to sleep.
--- NOTE | 2025-09-12 02:53 | RESP.EEG ---
Pt was evaluated at this time for an EEG but Pt was being noncompliant and uncooperative. Pt had recent Code Snyder Alerts called and was given sedation to help him calm down. EEG was held at this time. CHATA Franz made aware.
[2025-09-12] MEDS: THIAMINE INJ 100 MG/ML VIAL 2 ML 500 MG IVP ×2 (05:43→13:02)
[2025-09-12 05:56] LABS: Basophils # (Auto) 0.0 Thou/mm3 (0.0-0.2); Basophils % (Auto) 1 % (0-2.5); Eosinophils # (Auto) 0.1 Thou/mm3 (0.0-0.5); Eosinophils % (Auto) 1 % (0-10); Hematocrit 34.0 % (41.0-53.0); Hemoglobin 11.6 g/dL (13.5-16.0); Immature Granulocytes Auto 0.02 Thou/mm3 (0.00-0.00); Lymphocytes # (Auto) 1.3 Thou/mm3 (1.0-4.8); Lymphocytes % (Auto) 27 % (10-50); Mean Corpuscular HGB Conc 34.1 g/dl (31.0-37.0); Mean Corpuscular Hemoglobin 34.4 pg (25.0-35.0); Mean Corpuscular Volume 101 fL (80-100); Monocytes # (Auto) 0.5 Thou/mm3 (0.0-0.8); Monocytes % (Auto) 10 % (0-12); Neutrophils # (Auto) 3.0 Thou/mm3 (1.8-7.7); Neutrophils % (Auto) 61 % (37-80); Nucleated Red Blood Cell # 0.00 Thou/mm3 (0.00-0.00); Nucleated Red Blood Cell % 0 /100 WBC (0); Platelet Count 181 Thou/mm3 (140-440); RDW Standard Deviation 51.7 fL (35.1-43.9); Red Blood Count 3.37 Miln/mm3 (4.50-5.90); White Blood Count 4.9 Thou/mm3 (3.8-10.6)
[2025-09-12 06:29] LABS: Alanine Aminotransferase 20 U/L (10-49); Albumin, Serum 3.2 gm/dL (3.4-4.8); Albumin/Globulin Ratio 1.5 (1.2-2.2); Alkaline Phosphatase 58 U/L (46-116); Anion Gap 9 (7-16); Aspartate Amino Transferase 33 U/L (0-34); BUN/Creatinine Ratio 9 Ratio (12-20); Bilirubin,Total 0.7 mg/dL (0.3-1.2); Blood Urea Nitrogen 6 mg/dL (9-23); Calcium 8.4 mg/dL (8.3-10.6); Calcium (Corrected) 9.0 mg/dL (8.5-10.1); Carbon Dioxide 25.2 mMol/L (20.0-31.0); Chloride 108 mMol/L (98-107); Creatinine (Component) 0.7 mg/dL (0.6-1.3); Estimated Creatinine Clearance 115.7 mL/min (>60); Globulin 2.2 gm/dL (2.3-3.5); Glucose 89 mg/dL (74-106); Magnesium 1.7 mg/dL (1.6-2.6); Osmolality,Calculated 279 (275-295); Phosphorous 2.3 mg/dL (2.4-5.1); Potassium 3.4 mMol/L (3.4-5.1); Sodium 142 mMol/L (136-145); Total Protein 5.4 gm/dL (5.7-8.2); eGFR > 60 See Note
[2025-09-12] MEDS: FOLIC ACID 1 MG TABLET PO ×2 (08:17→20:08)
[2025-09-12] MEDS: HEPARIN SOD INJ 5000 UNIT/ML VIAL SC ×2 (08:20→20:07)
[2025-09-12] MEDS: NAPH,KPH MBDB 1 PACKET (1.5 GM) PO (08:46)
--- NOTE | 2025-09-12 14:51 | ESPR_ITS ---
Documentation for date of: 09/12/25 Senior resident attestation: Patient evaluated and examined at the bedside, plan of care discussed with rest of the team including my attending physician, except as noted. Patient is a 65-year-old male with a significant medical history of chronic alcohol use disorder and arthritis who presented with back pain, foot pain, and confusion. He was admitted overnight for the management of rhabdomyolysis and complications related to alcohol use. Overnight, he received haloperidol and midazolam to manage agitation and withdrawal symptoms. This morning, his CIWA score was 2, and he is now alert and oriented to person, place, and time, indicating improved mental status. Given his history and presenting symptoms, there is a concern for possible Wernicke encephalopathy secondary to chronic alcohol abuse and nutritional deficiency. Initially received intravenous thiamine 500 mg three times daily for one additional day, after which he will transition to 250 mg. Continue to treat withdrawal symptoms with symptom triggered CIWA. Quresh PGY3 Subjective Subjective Interval history: Overnight, patient was agitated received haloperidol and midazolam. CIWA this morning ranging from 3-11. Patient seen and examined at bedside. CIWA on examination 2. Patient reports feeling much better today compared to admission. Back pain tolerable denies any leg pain. Is able to recall recent events and thought processes linear. Endorses that he wants to quit drinking. However when rounding later in the morning, patient seems to be still slightly confused, slow responses to orientation questions. Vitals labs reviewed. Creatinine 0.7, CK downtrending. Continue CIWA protocol and hold off on Librium for now as patient is improving on CIWA. High-dose thiamine for 1 more day and plan to transition to 250 mg daily. Exam Vital Signs Temp Pulse Resp BP Pulse Ox O2 Del Method 98.8 F 67 18 148/83 H 96 Room Air 09/12/25 11:45 09/12/25 11:59 09/12/25 11:45 09/12/25 11:45 09/12/25 11:45 09/12/25 11:45 Narrative Exam GENERAL: AOx3, no acute distress, disheveled HEENT: mucous membranes moist, bilateral sclera anicteric CARDIOVASCULAR: regular rate and rhythm, S1/S2 present, no murmurs appreciated PULMONARY: clear to auscultation bilaterally, no rales/rhonchi/wheezes ABDOMINAL: soft, non-tender, non-distended, no rebound/guarding, bowel sounds present EXTREMITIES: no peripheral edema SKIN: warm and dry, 1 cm blister proximal inner L calf NEURO: CN II-XII grossly intact, no focal deficits, alert, following commands Objective Labs 09/13/25 05:35 09/13/25 05:35 Labs: Laboratory Results - last 24 hr 09/12/25 04:30 WBC 4.9 RBC 3.37 L Hgb 11.6 L Hct 34.0 L MCV 101 H MCH 34.4 MCHC 34.1 RDW Std Deviation 51.7 H Plt Count 181 Neut % (Auto) 61 Lymph % (Auto) 27 [place] % (Auto) 10 Eos % (Auto) 1 Baso % (Auto) 1 Neut # (Auto) 3.0 Lymph # (Auto) 1.3 [place] # (Auto) 0.5 Eos # (Auto) 0.1 Baso # (Auto) 0.0 Immature Gran # (Auto) 0.02 H Absolute Nucleated RBC 0.00 Immature Gran % 0 Nucleated RBC % 0 Sodium 142 Potassium 3.4 Chloride 108 H Carbon Dioxide 25.2 Anion Gap 9 BUN 6 L Creatinine 0.7 Estim Creat Clear Calc 115.7 eGFR > 60 BUN/Creatinine Ratio 9 L Glucose 89 Calculated Osmolality 279 Calcium 8.4 Corrected Calcium 9.0 Phosphorus 2.3 L Magnesium 1.7 Total Bilirubin 0.7 AST 33 ALT 20 Alkaline Phosphatase 58 Total Protein 5.4 L Albumin 3.2 L Globulin 2.2 L Albumin/Globulin Ratio 1.5 Quality Measures Quality Measures none Advance care planning discussed with:: patient Assessment & Plan Assessment Current Active Medications: Generic Name Dose Route Start Last Admin Trade Name Freq PRN Reason Stop Dose Admin Acetaminophen 650 mg 09/10/25 03:17 Acetaminophen 325 Mg Tablet PO 10/10/25 03:16 Q6H PRN Fever >101.5 Al Hydrox/Mg Hydrox/Simethicone 30 ml 09/10/25 03:17 Mg Hyd/Al Hyd/Carolee (Maalox Reg) Susp 30 Ml Udc PO 10/10/25 03:16 Q6H PRN Indigestion Bisacodyl 10 mg 09/10/25 03:17 Bisacodyl 5 Mg Tabec PO 10/10/25 03:16 QDAY PRN CONSTIPATION Protocol Folic Acid 1 mg 09/10/25 09:00 09/12/25 08:17 Folic Acid 1 Mg Tablet PO 09/15/25 08:59 1 mg BID STEPHENIE Administration Heparin Sodium (Porcine) 5,000 unit 09/11/25 09:00 09/12/25 08:20 Heparin Sod Inj 5000 Unit/Ml Vial SC 09/25/25 08:59 5,000 unit Q12HR STEPHENIE Administration Thiamine HCl 500 mg/ Sodium 105 mls @ 210 mls/hr 09/13/25 06:00 Chloride IV 10/13/25 05:59 TID STEPHENIE Lorazepam 0.5 mg 09/10/25 08:36 09/12/25 11:17 Lorazepam 0.5 Mg Tablet PO 09/15/25 08:35 0.5 mg Q4HR PRN Administration CIWA Score 2-6 Lorazepam 1 mg 09/10/25 08:36 09/11/25 15:39 Lorazepam 0.5 Mg Tablet PO 09/15/25 08:35 1 mg Q4HR PRN Administration CIWA SCORE 7-11 Lorazepam 2 mg 09/10/25 08:36 Lorazepam 0.5 Mg Tablet PO 09/15/25 08:35 Q4HR PRN CIWA SCORE 12-15 Morphine Sulfate 2 mg 09/10/25 03:17 Morphine Sulf Inj 4 Mg/Ml Vial IVP 09/15/25 03:16 Q2H PRN PAIN SCALE 7-10 (Severe Thiamine HCl 500 mg 09/10/25 22:00 09/12/25 13:02 Thiamine Inj 100 Mg/Ml Vial 2 Ml IVP 09/12/25 21:59 500 mg TID STEPHENIE Administration Plan Mc Rodriguez 65M with pmhx significant for alcohol abuse and arthritis who presented with back pain, foot pain and confusion. Admitted overnight for management of rhabdomyolysis, alcohol abuse. #Alcohol use with possible Wernicke encephalopathy Reports year-long history of alcoholism which has worsened over the past few years, ports drinks 750 mL of hard liquor every day. Urine alcohol <3.0. CIWA this morning 2 following overnight haloperidol and midazolam. AOx3 today, improved confusion. Plan: - Continues to be on CIWA protocol. - High dose thiamine 500 mg TID for one more day, then plan to transition to 250 mg QD for 5 days subsequently - Folic acid 1 mg BID - CTM CIWA score - Social service referral, we will camp counselor extensively regarding alcohol cessation once patient's mentation improves - If patient does not showing improvement in his mentation despite IV fluids, correction of electrolytes, IV thiamine, we will obtain neurology consult #Back pain #Elevated CK, c/f early rhabdomyolysis, improving Reports back pain is chronic and painful on admission, but currently tolerable. Denies urinary or fecal incontinence. CK 1000->900->360 following fluids. Lumbar spine CT showed diffuse moderate to advanced lumbar degenerative disc disease, most severe at L2-L3, L3-L4; L5-S1 5 mm central lumbar disc bulge contiguous with the right and left S1 nerve roots, L4-L5 4 mm central lumbar bulge disc. Thoracic spine CT also showed mild to moderate diffuse thoracic degenerative disc disease. Plan: - PT ordered - IV Morphine for pain control #Foot pain #New blister Does not know when or how blisters originated. Denies foot pain currently. Plan: - Wound care following #Homelessness - Referral to medical social worker Hospital management: Lines: PIV Diet: Regular Bowel: not indicated GI prophylaxis: not indicated DVT prophylaxis: heparin q12 Disposition: med surg, pending improved CIWA and encephalopathy CODE STATUS: FULL CODE Plan of care discussed with attending Dr. Yanes and PGY-3 Dr. Frost. Antonia Callaway, PGY-1 Internal Medicine Attending Provider Attestation/Addendum I have seen and examined the patient. I was physically present for the benavidez portions of the services provided including history, physical exam, diagnosis, treatment plans and orders. I agree with assessment and plan of care as documented by residents. Even though this this note was carefully revised there may still be minor errors in x ray control equipment repairer due to voice recognition software. Mery Yanes MD
--- NOTE | 2025-09-12 16:37 | PC.NURSE ---
Received call from patients daughter Yadira Rodriguez requesting update on patients status and plan of care. Questions asked and answered to satisfaction. Contact information verified. Daughter expressed desire to be notified of any changes and plans for discharge.
[2025-09-12 19:29] LABS: Vitamin D 25 Hydroxy Total 24.4 ng/mL (7.3-40.2)
--- NOTE | 2025-09-12 21:11 | PC.NURSE ---
notified around 2100 regarding patient refusing security monitor since beginning of the shift. Patient on CIWA, with score of 5 at 1999. Easily gets agitated according to the sitter. Patient asleep now, will try to put back again security monitor once patient is awake.
--- NOTE | 2025-09-12 22:51 | PD.VPROG1 ---
Telemedicine visit statement This visit was conducted with the use of interactive audio and video telecommunications system that permits real time communication between the patient and the provider. Patient's verbal consent for virtual visit was obtained on 09/12/25 at 2251. Documentation for date of: 09/12/25 Subjective Subjective Interval history: Patient is in message. He continues to be confused but talkative and moves both upper and lower extremities. Tolerating oral diet well. Virtual exam Vital Signs Temp Pulse Resp BP Pulse Ox O2 Del Method 98.7 F 63 19 127/78 94 L Room Air 09/12/25 20:00 09/12/25 20:00 09/12/25 20:00 09/12/25 20:00 09/12/25 20:00 09/12/25 20:00 Objective Labs 09/12/25 04:30 09/12/25 04:30 Labs: Laboratory Results - last 24 hr 09/11/25 09/12/25 04:38 04:30 WBC 4.9 RBC 3.37 L Hgb 11.6 L Hct 34.0 L MCV 101 H MCH 34.4 MCHC 34.1 RDW Std Deviation 51.7 H Plt Count 181 Neut % (Auto) 61 Lymph % (Auto) 27 [place] % (Auto) 10 Eos % (Auto) 1 Baso % (Auto) 1 Neut # (Auto) 3.0 Lymph # (Auto) 1.3 [place] # (Auto) 0.5 Eos # (Auto) 0.1 Baso # (Auto) 0.0 Immature Gran # (Auto) 0.02 H Absolute Nucleated RBC 0.00 Immature Gran % 0 Nucleated RBC % 0 Sodium 142 Potassium 3.4 Chloride 108 H Carbon Dioxide 25.2 Anion Gap 9 BUN 6 L Creatinine 0.7 Estim Creat Clear Calc 115.7 eGFR > 60 BUN/Creatinine Ratio 9 L Glucose 89 Calculated Osmolality 279 Calcium 8.4 Corrected Calcium 9.0 Phosphorus 2.3 L Magnesium 1.7 Total Bilirubin 0.7 AST 33 ALT 20 Alkaline Phosphatase 58 Total Protein 5.4 L Albumin 3.2 L Globulin 2.2 L Albumin/Globulin Ratio 1.5 25-OH Vitamin D Total 24.4 Assessment & Plan Plan (1) Altered mental status: Status: Acute Assessment and plan: Most likely secondary to progressive cognitive impairment with baseline dementia/chronic alcohol use/nutritional deficiency. Will follow-up with MRI brain and EEG to evaluate further. Recommend: To check B12, thiamine, folate, T4, TSH, RPR, HIV, lipid panel to for secondary causes of memory loss Report to [facility] for license suspension for safety. He needs placement for long-term as he has severe cognitive impairment Recommend to start him on donepezil 5 mg at bedtime. Consider increasing the dose after a month and subsequently add memantine for preventing progression. (2) Rhabdomyolysis: Status: Acute Assessment and plan: Improving with hydration
[2025-09-13] VITALS (7 sets, daily range): BP systolic 117–148; BP diastolic 64–92; PULSE 60–86; RESP 17–21; TEMP 36.6–37.3; O2SAT 95–98
[2025-09-13] MEDS: THIAMINE INJ 500 MG in SODIUM CHLORIDE 0.9% 100 ML 210 MG IV ×3 (05:23→21:18)
[2025-09-13 06:25] LABS: Basophils # (Auto) 0.0 Thou/mm3 (0.0-0.2); Basophils % (Auto) 1 % (0-2.5); Eosinophils # (Auto) 0.1 Thou/mm3 (0.0-0.5); Eosinophils % (Auto) 2 % (0-10); Hematocrit 36.1 % (41.0-53.0); Hemoglobin 12.3 g/dL (13.5-16.0); Immature Granulocytes Auto 0.01 Thou/mm3 (0.00-0.00); Lymphocytes # (Auto) 1.1 Thou/mm3 (1.0-4.8); Lymphocytes % (Auto) 20 % (10-50); Mean Corpuscular HGB Conc 34.1 g/dl (31.0-37.0); Mean Corpuscular Hemoglobin 34.0 pg (25.0-35.0); Mean Corpuscular Volume 100 fL (80-100); Monocytes # (Auto) 0.5 Thou/mm3 (0.0-0.8); Monocytes % (Auto) 10 % (0-12); Neutrophils # (Auto) 3.6 Thou/mm3 (1.8-7.7); Neutrophils % (Auto) 67 % (37-80); Nucleated Red Blood Cell # 0.00 Thou/mm3 (0.00-0.00); Nucleated Red Blood Cell % 0 /100 WBC (0); Platelet Count 171 Thou/mm3 (140-440); RDW Standard Deviation 51.5 fL (35.1-43.9); Red Blood Count 3.62 Miln/mm3 (4.50-5.90); White Blood Count 5.4 Thou/mm3 (3.8-10.6)
[2025-09-13 06:54] LABS: Alanine Aminotransferase 21 U/L (10-49); Albumin, Serum 3.4 gm/dL (3.4-4.8); Albumin/Globulin Ratio 1.5 (1.2-2.2); Alkaline Phosphatase 64 U/L (46-116); Anion Gap 9 (7-16); Aspartate Amino Transferase 31 U/L (0-34); BUN/Creatinine Ratio 7 Ratio (12-20); Bilirubin,Total 0.5 mg/dL (0.3-1.2); Blood Urea Nitrogen 5 mg/dL (9-23); Calcium 8.6 mg/dL (8.3-10.6); Calcium (Corrected) 9.1 mg/dL (8.5-10.1); Carbon Dioxide 25.2 mMol/L (20.0-31.0); Chloride 107 mMol/L (98-107); Creatinine (Component) 0.7 mg/dL (0.6-1.3); Estimated Creatinine Clearance 115.7 mL/min (>60); Globulin 2.3 gm/dL (2.3-3.5); Glucose 88 mg/dL (74-106); Osmolality,Calculated 277 (275-295); Potassium 3.7 mMol/L (3.4-5.1); Sodium 141 mMol/L (136-145); Total Protein 5.7 gm/dL (5.7-8.2); eGFR > 60 See Note
[2025-09-13] MEDS: HEPARIN SOD INJ 5000 UNIT/ML VIAL SC ×2 (08:23→21:17)
[2025-09-13] MEDS: FOLIC ACID 1 MG TABLET PO ×2 (08:23→21:17)
[2025-09-13 09:36] LABS: Cardiac Risk Estimate 4.0 RATIO (4.0-6.7); Cholesterol 174 mg/dL (132-200); Free T4 (Free Thyroxine) 1.04 ng/dL (0.89-1.76); HDL Cholesterol 43 mg/dL (40-60); LDL Cholesterol,Calculated 110 mg/dL (0-130); Phosphorous 3.4 mg/dL (2.4-5.1); Thyroid Stimulating Hormone 8.75 uIU/mL (0.55-4.78); Triglycerides 104 mg/dL (30-150)
--- NOTE | 2025-09-13 09:47 | XR_ITS ---
Examination: MRI brain without intravenous contrast. Date and time of exam: September 13, 2025, 1415 hours INDICATIONS: Onset confusion this week Technique: Multiple axial and sagittal images of the brain obtained. Siemens high-resolution 1.5 Shirin short bore scanners utilized. Sagittal sections, T1-weighted, TR 500, TE 14, are performed. Axial sections proton-density and T2-weighted have been obtained. Inversion recovery axial images, TR 9, 260, TE 111, TI 2500. Diffusion weighted images, axial sections, TR 4800, TE 128, B value 1000 Axial sections, ADC map, TR 4800, TE 128 Findings: Enlargement of the sella turcica is not present. The optic chiasm and infundibular are not remarkable. Prepontine and interpeduncular cisterns are not enlarged. There is no localized enlargement of the medulla or martinez. Fourth ventricle and cerebellar tonsils appear normal in position. No subacute area of hemorrhage density is seen. Mass in the cerebellopontine angle region is not evident. Globes symmetrical. Orbital musculature including medial lateral rectus muscles do not exhibit abnormality. Diffusion-weighted images demonstrate no focus of restricted diffusion. Increased white matter signal moderate Mass effect upon the ventricular system is not identified. Impression: Negative for acute hemorrhage, mass effect or midline shift No acute infarct Moderate chronic microvascular white matter change
[2025-09-13 10:37] LABS: Vitamin B12 271 pg/mL (211-911)
[2025-09-13 10:52] LABS: Syphilis Nonreactive (Nonreactive)
[2025-09-13 11:36] LABS: HIV (1&2) Antibody Rapid Non-Reactive
--- NOTE | 2025-09-13 14:06 | PC.PT ---
Patient will be D/C from PT services 12/27 patient is now xI with bed mobility, transfers, and ambulation with no AD.
--- NOTE | 2025-09-13 15:09 | ESPR_ITS ---
<Statement entered by Justin Peraza MD - 09/13/25 15:50> I have reviewed the note and agree with the resident's assessment & plan with exceptions as below. I have personally reviewed labs, imaging, home meds/prior records, examined the patient, formulated and discussed management plan with my attending Patient was seen and evaluated at bedside this morning. No overnight. Patient CIWA has been around 1-5 and today he is AO x 3. EEG was negative for any seizures type activity, but still MRI is pending. Neurology recommended to start donepezil at this time therefore will start donepezil 5 mg nightly. Will also decrease patient's thiamine from 500 mg to 250 mg daily. Otherwise expect possible discharge in the next 24 to 48 hours. Justin Peraza PGY2 Disclaimer: Even though this this note was dictated by speech recognition and even though it was carefully revised there may still be minor errors in plsql developer due to voice recognition software. Documentation for date of: 09/13/25 Subjective Subjective Interval history: Overnight, CIWA 1-5. Patient seen and examined at bedside. Alert and oriented x3, still some disorientation. Denies back pain, leg pain or N/V. Feels good. Vitals and labs reviewed. SBP 120-140. Hgb 12.3. Cr 0.7. EEG negative. Per neurology, ordered secondary causes of AMS labs, ordered MRI, and started donepezil 5 mg qhs. Continue high dose thiamine today, desscalate to 250 mg QD tomorrow. [facility] protocol in place. Exam Vital Signs Temp Pulse Resp BP Pulse Ox O2 Del Method 99.2 F 72 18 145/92 H 97 Room Air 09/13/25 12:00 09/13/25 12:00 09/13/25 12:00 09/13/25 12:00 09/13/25 12:00 09/13/25 12:00 Narrative Exam GENERAL: AOx3, no acute distress, disheveled HEENT: mucous membranes moist, bilateral sclera anicteric CARDIOVASCULAR: regular rate and rhythm, S1/S2 present, no murmurs appreciated PULMONARY: clear to auscultation bilaterally, no rales/rhonchi/wheezes ABDOMINAL: soft, non-tender, non-distended, no rebound/guarding, bowel sounds present EXTREMITIES: no peripheral edema SKIN: warm and dry, 1 cm blister proximal inner L calf NEURO: CN II-XII grossly intact, no focal deficits, alert, following commands Objective Labs 09/13/25 05:35 09/13/25 05:35 Labs: Laboratory Results - last 24 hr 09/11/25 09/13/25 09/13/25 04:38 05:35 09:26 WBC 5.4 RBC 3.62 L Hgb 12.3 L Hct 36.1 L MCV 100 MCH 34.0 MCHC 34.1 RDW Std Deviation 51.5 H Plt Count 171 Neut % (Auto) 67 Lymph % (Auto) 20 [place] % (Auto) 10 Eos % (Auto) 2 Baso % (Auto) 1 Neut # (Auto) 3.6 Lymph # (Auto) 1.1 [place] # (Auto) 0.5 Eos # (Auto) 0.1 Baso # (Auto) 0.0 Immature Gran # (Auto) 0.01 H Absolute Nucleated RBC 0.00 Immature Gran % 0 Nucleated RBC % 0 Sodium 141 Potassium 3.7 Chloride 107 Carbon Dioxide 25.2 Anion Gap 9 BUN 5 L Creatinine 0.7 Estim Creat Clear Calc 115.7 eGFR > 60 BUN/Creatinine Ratio 7 L Glucose 88 Calculated Osmolality 277 Calcium 8.6 Corrected Calcium 9.1 Phosphorus 3.4 Total Bilirubin 0.5 AST 31 ALT 21 Alkaline Phosphatase 64 Total Protein 5.7 Albumin 3.4 Globulin 2.3 Albumin/Globulin Ratio 1.5 Triglycerides 104 Cholesterol 174 LDL Cholesterol, Calc 110 HDL Cholesterol 43 Cholesterol/HDL Ratio 4.0 Vitamin B12 271 25-OH Vitamin D Total 24.4 TSH 8.75 H Free T4 1.04 Syphilis Serology Nonreactive HIV 1&2 Antibody Rapid Non-Reactive Quality Measures Quality Measures none Advance care planning discussed with:: patient Assessment & Plan Assessment Current Active Medications: Generic Name Dose Route Start Last Admin Trade Name Freq PRN Reason Stop Dose Admin Acetaminophen 650 mg 09/10/25 03:17 Acetaminophen 325 Mg Tablet PO 10/10/25 03:16 Q6H PRN Fever >101.5 Al Hydrox/Mg Hydrox/Simethicone 30 ml 09/10/25 03:17 Mg Hyd/Al Hyd/Carolee (Maalox Reg) Susp 30 Ml Udc PO 10/10/25 03:16 Q6H PRN Indigestion Bisacodyl 10 mg 09/10/25 03:17 Bisacodyl 5 Mg Tabec PO 10/10/25 03:16 QDAY PRN CONSTIPATION Protocol Donepezil HCl 5 mg 09/13/25 21:00 Donepezil Hcl 5 Mg Tablet PO 10/13/25 20:59 HS STEPHENIE Folic Acid 1 mg 09/10/25 09:00 09/13/25 08:23 Folic Acid 1 Mg Tablet PO 09/15/25 08:59 1 mg BID STEPHENIE Administration Heparin Sodium (Porcine) 5,000 unit 09/11/25 09:00 09/13/25 08:23 Heparin Sod Inj 5000 Unit/Ml Vial SC 09/25/25 08:59 5,000 unit Q12HR STEPHENIE Administration Thiamine HCl 500 mg/ Sodium 105 mls @ 210 mls/hr 09/13/25 06:00 09/13/25 13:37 Chloride IV 10/13/25 05:59 210 mls/hr TID STEPHENIE Administration Lorazepam 0.5 mg 09/10/25 08:36 09/12/25 11:17 Lorazepam 0.5 Mg Tablet PO 09/15/25 08:35 0.5 mg Q4HR PRN Administration CIWA Score 2-6 Lorazepam 1 mg 09/10/25 08:36 09/12/25 17:59 Lorazepam 0.5 Mg Tablet PO 09/15/25 08:35 1 mg Q4HR PRN Administration CIWA SCORE 7-11 Lorazepam 2 mg 09/10/25 08:36 Lorazepam 0.5 Mg Tablet PO 09/15/25 08:35 Q4HR PRN CIWA SCORE 12-15 Morphine Sulfate 2 mg 09/10/25 03:17 Morphine Sulf Inj 4 Mg/Ml Vial IVP 09/15/25 03:16 Q2H PRN PAIN SCALE 7-10 (Severe Plan Mc Michael 65M with pmhx significant for alcohol abuse and arthritis who presented with back pain, foot pain and confusion. Admitted overnight for management of rhabdomyolysis, alcohol abuse. #Alcohol use with possible Wernicke encephalopathy Reports year-long history of alcoholism which has worsened over the past few years, ports drinks 750 mL of hard liquor every day. Urine alcohol <3.0. CIWA this morning 2 following overnight haloperidol and midazolam. AOx3 today, improved confusion. EEG negative. Plan: - Continues to be on CIWA protocol. - Plan to start IV thiamine 250 mg QD for 5 days and continue folic acid 1 mg BID - Started donepezil 5 mg qhs - Neurology consulted, recs appreciated: check B12, thiamine, folate, T4, TSH, RPR, HIV, lipid panel. Needs placement for severe cognitive impairment. MRI ordered. Start donepezil as above. - Social service referral, we will prevocational/rehabilitation counselor extensively regarding alcohol cessation once patient's mentation improves - If patient does not showing improvement in his mentation despite IV fluids, correction of electrolytes, IV thiamine, we will obtain neurology consult #Back pain #Elevated CK, c/f early rhabdomyolysis, improving Reports back pain is chronic and painful on admission, but currently tolerable. Denies urinary or fecal incontinence. CK 1000->900->360 following fluids. Lumbar spine CT showed diffuse moderate to advanced lumbar degenerative disc disease, most severe at L2-L3, L3-L4; L5-S1 5 mm central lumbar disc bulge contiguous with the right and left S1 nerve roots, L4-L5 4 mm central lumbar bulge disc. Thoracic spine CT also showed mild to moderate diffuse thoracic degenerative disc disease. Plan: - PT ordered - IV Morphine for pain control #Foot pain #New blister Does not know when or how blisters originated. Denies foot pain currently. Plan: - Wound care following #Homelessness - Referral to marriage and family social worker Hospital management: Lines: PIV Diet: Regular Bowel: not indicated GI prophylaxis: not indicated DVT prophylaxis: heparin q12 Disposition: med surg, pending complete AMS workup CODE STATUS: FULL CODE Plan of care discussed with attending Dr. Yanes and PGY-2 Dr. Riley. Antonia Callaway, DO PGY-1 Internal Medicine Attending Provider Attestation/Addendum I have seen and examined the patient. I was physically present for the benavidez portions of the services provided including history, physical exam, diagnosis, treatment plans and orders. I agree with assessment and plan of care as documented by residents. Patient seen and examined at bedside this morning. Appears comfortable and denies any new complaints. Appears slightly more coherent compared to yesterday but continues to be confused and have memory issues. Vital signs are stable except for mild hypertension. Continues to be on CIWA protocol, score has been low around 1-5. Completed 2 days of thiamine 500 3 times daily, we will transition to 250 mg daily. Neurology following closely, recommended B12, thiamine, folate, T4, TSH, RPR, HIV and lipid panel along with brain MRI and EEG, appreciate recommendations. Also added donepezil 5 mg nightly. EEG was obtained, showed normal study without epileptiform discharge. Awaiting brain MRI. Even though this this note was carefully revised there may still be minor errors in plsql developer due to voice recognition software. Mery Yanes MD
--- NOTE | 2025-09-13 15:54 | PC.SS ---
Follow up note: SS spoke to daughter on phone re: discharge options for patient. Patient is currently homeless. Daughter [place] out of state and would prefer patient to d/c to SNF. SS will present to local SNF's. SS explained process requiring prior auth. Patient is altered today. SS will follow up with daughter and patient tomorrow.
[2025-09-13] MEDS: DONEPEZIL HCL 5 MG TABLET PO (21:17)
[2025-09-14] VITALS (7 sets, daily range): BP systolic 112–136; BP diastolic 66–91; PULSE 60–75; RESP 17–20; TEMP 36.3–36.9; O2SAT 92–99
--- NOTE | 2025-09-14 05:35 | PC.NURSE ---
Pt is calm and cooperative the night.
[2025-09-14] MEDS: HEPARIN SOD INJ 5000 UNIT/ML VIAL SC ×2 (08:44→20:09)
[2025-09-14] MEDS: FOLIC ACID 1 MG TABLET PO ×2 (08:44→20:09)
[2025-09-14] MEDS: THIAMINE INJ 100 MG/ML VIAL 2 ML 250 MG IVP (08:44)
[2025-09-14 09:41] LABS: Basophils # (Auto) 0.0 Thou/mm3 (0.0-0.2); Basophils % (Auto) 0 % (0-2.5); Eosinophils # (Auto) 0.1 Thou/mm3 (0.0-0.5); Eosinophils % (Auto) 2 % (0-10); Hematocrit 34.4 % (41.0-53.0); Hemoglobin 12.2 g/dL (13.5-16.0); Immature Granulocytes Auto 0.01 Thou/mm3 (0.00-0.00); Lymphocytes # (Auto) 0.9 Thou/mm3 (1.0-4.8); Lymphocytes % (Auto) 16 % (10-50); Mean Corpuscular HGB Conc 35.5 g/dl (31.0-37.0); Mean Corpuscular Hemoglobin 35.0 pg (25.0-35.0); Mean Corpuscular Volume 99 fL (80-100); Monocytes # (Auto) 0.6 Thou/mm3 (0.0-0.8); Monocytes % (Auto) 11 % (0-12); Neutrophils # (Auto) 4.2 Thou/mm3 (1.8-7.7); Neutrophils % (Auto) 71 % (37-80); Nucleated Red Blood Cell # 0.00 Thou/mm3 (0.00-0.00); Nucleated Red Blood Cell % 0 /100 WBC (0); Platelet Count 162 Thou/mm3 (140-440); RDW Standard Deviation 50.8 fL (35.1-43.9); Red Blood Count 3.49 Miln/mm3 (4.50-5.90); White Blood Count 5.9 Thou/mm3 (3.8-10.6)
[2025-09-14 10:05] LABS: Alanine Aminotransferase 20 U/L (10-49); Albumin, Serum 3.7 gm/dL (3.4-4.8); Albumin/Globulin Ratio 1.5 (1.2-2.2); Alkaline Phosphatase 63 U/L (46-116); Anion Gap 6 (7-16); Aspartate Amino Transferase 24 U/L (0-34); BUN/Creatinine Ratio 8 Ratio (12-20); Bilirubin,Total 0.6 mg/dL (0.3-1.2); Blood Urea Nitrogen 6 mg/dL (9-23); Calcium 9.0 mg/dL (8.3-10.6); Calcium (Corrected) 9.2 mg/dL (8.5-10.1); Carbon Dioxide 26.8 mMol/L (20.0-31.0); Chloride 106 mMol/L (98-107); Creatinine (Component) 0.8 mg/dL (0.6-1.3); Estimated Creatinine Clearance 101.3 mL/min (>60); Globulin 2.4 gm/dL (2.3-3.5); Glucose 98 mg/dL (74-106); Magnesium 1.8 mg/dL (1.6-2.6); Osmolality,Calculated 275 (275-295); Potassium 3.8 mMol/L (3.4-5.1); Sodium 139 mMol/L (136-145); Total Protein 6.1 gm/dL (5.7-8.2); eGFR > 60 See Note
--- NOTE | 2025-09-14 11:23 | ESPR_ITS ---
<Statement entered by Justin Peraza MD - 09/14/25 17:05> I have reviewed the note and agree with the resident's assessment & plan with exceptions as below. I have personally reviewed labs, imaging, home meds/prior records, examined the patient, formulated and discussed management plan with my attending Patient was seen and evaluated at bedside this morning. No acute overnight events. AO x 3. MRI was negative and only shows some white matter changes. As per neurology patient will need long-term placement, but given patient's current mental status will discuss with neurology if need for long-term care versus short-term care. Will also discussed with neurology if they have any concerns for patient not being able to make decisions for himself at this time given his waxing and waning mental status. Otherwise we will continue with thiamine, donepezil, and folic acid. Patient CIWA score is 1. Justin Peraza PGY2 Disclaimer: Even though this this note was dictated by speech recognition and even though it was carefully revised there may still be minor errors in field hand due to voice recognition software. Documentation for date of: 09/14/25 Subjective Subjective Interval history: Overnight CIWA 1 however 1 reading of 11. Patient seen examined at bedside. Patient is oriented x 3 however cannot recall recent events such as what he ate for breakfast or reason for admission. Denies chest, back or foot pain. Vitals and labs reviewed, stable. MRI negative for acute processes, microvascular white matter changes. Per neurology, patient will need placement. Continue thiamine and folic acid. Continue donepezil. Exam Vital Signs Temp Pulse Resp BP Pulse Ox O2 Del Method 97.4 F 75 18 124/73 95 Room Air 09/14/25 08:00 09/14/25 08:00 09/14/25 08:00 09/14/25 08:00 09/14/25 08:00 09/14/25 08:00 Narrative Exam GENERAL: AOx3, no acute distress, disheveled, unable to recall recent events, not oriented to reason of admission HEENT: mucous membranes moist, bilateral sclera anicteric CARDIOVASCULAR: regular rate and rhythm, S1/S2 present, no murmurs appreciated PULMONARY: clear to auscultation bilaterally, no rales/rhonchi/wheezes ABDOMINAL: soft, non-tender, non-distended, no rebound/guarding, bowel sounds present EXTREMITIES: no peripheral edema SKIN: warm and dry, 1 cm blister proximal inner L calf NEURO: CN II-XII grossly intact, no focal deficits, alert, following commands Objective Labs 09/14/25 09:22 09/14/25 09:22 Labs: Laboratory Results - last 24 hr 09/13/25 09/14/25 09:26 09:22 WBC 5.9 RBC 3.49 L Hgb 12.2 L Hct 34.4 L MCV 99 MCH 35.0 MCHC 35.5 RDW Std Deviation 50.8 H Plt Count 162 Neut % (Auto) 71 Lymph % (Auto) 16 [place] % (Auto) 11 Eos % (Auto) 2 Baso % (Auto) 0 Neut # (Auto) 4.2 Lymph # (Auto) 0.9 L [place] # (Auto) 0.6 Eos # (Auto) 0.1 Baso # (Auto) 0.0 Immature Gran # (Auto) 0.01 H Absolute Nucleated RBC 0.00 Immature Gran % 0 Nucleated RBC % 0 Sodium 139 Potassium 3.8 Chloride 106 Carbon Dioxide 26.8 Anion Gap 6 L BUN 6 L Creatinine 0.8 Estim Creat Clear Calc 101.3 eGFR > 60 BUN/Creatinine Ratio 8 L Glucose 98 Calculated Osmolality 275 Calcium 9.0 Corrected Calcium 9.2 Magnesium 1.8 Total Bilirubin 0.6 AST 24 ALT 20 Alkaline Phosphatase 63 Total Protein 6.1 Albumin 3.7 Globulin 2.4 Albumin/Globulin Ratio 1.5 HIV 1&2 Antibody Rapid Non-Reactive Quality Measures Quality Measures none Advance care planning discussed with:: patient Assessment & Plan Assessment Current Active Medications: Generic Name Dose Route Start Last Admin Trade Name Sarwatq PRN Reason Stop Dose Admin Acetaminophen 650 mg 09/10/25 03:17 Acetaminophen 325 Mg Tablet PO 10/10/25 03:16 Q6H PRN Fever >101.5 Al Hydrox/Mg Hydrox/Simethicone 30 ml 09/10/25 03:17 Mg Hyd/Al Hyd/Carolee (Maalox Reg) Susp 30 Ml Udc PO 10/10/25 03:16 Q6H PRN Indigestion Bisacodyl 10 mg 09/10/25 03:17 Bisacodyl 5 Mg Tabec PO 10/10/25 03:16 QDAY PRN CONSTIPATION Protocol Donepezil HCl 5 mg 09/13/25 21:00 09/13/25 21:17 Donepezil Hcl 5 Mg Tablet PO 10/13/25 20:59 5 mg HS STEPHENIE Administration Folic Acid 1 mg 09/10/25 09:00 09/14/25 08:44 Folic Acid 1 Mg Tablet PO 09/15/25 08:59 1 mg BID STEPHENIE Administration Heparin Sodium (Porcine) 5,000 unit 09/11/25 09:00 09/14/25 08:44 Heparin Sod Inj 5000 Unit/Ml Vial SC 09/25/25 08:59 5,000 unit Q12HR STEPHENIE Administration Lorazepam 0.5 mg 09/10/25 08:36 09/12/25 11:17 Lorazepam 0.5 Mg Tablet PO 09/15/25 08:35 0.5 mg Q4HR PRN Administration CIWA Score 2-6 Lorazepam 1 mg 09/10/25 08:36 09/13/25 17:03 Lorazepam 0.5 Mg Tablet PO 09/15/25 08:35 1 mg Q4HR PRN Administration CIWA SCORE 7-11 Lorazepam 2 mg 09/10/25 08:36 Lorazepam 0.5 Mg Tablet PO 09/15/25 08:35 Q4HR PRN CIWA SCORE 12-15 Morphine Sulfate 2 mg 09/10/25 03:17 Morphine Sulf Inj 4 Mg/Ml Vial IVP 09/15/25 03:16 Q2H PRN PAIN SCALE 7-10 (Severe Thiamine HCl 250 mg 09/14/25 09:00 09/14/25 08:44 Thiamine Inj 100 Mg/Ml Vial 2 Ml IVP 09/18/25 23:30 250 mg QDAY STEPHENIE Administration Plan Mcbryce Rodriguez 65M with pmhx significant for alcohol abuse and arthritis who presented with back pain, foot pain and confusion. Admitted overnight for management of rhabdomyolysis, alcohol abuse. #Alcohol use with possible Wernicke encephalopathy Reports year-long history of alcoholism which has worsened over the past few years, ports drinks 750 mL of hard liquor every day. Urine alcohol <3.0. CIWA stable. Continues to be AOx3, however still slightly confused. EEG negative. MRI negative for acute processes, no acute infarct, moderate chronic microvascular white matter change. B12 wnl, TSH elevated but T4 wnl, syphillis and HIV neg, trig 104, cho 174, LDL 110, HDL 43. Plan: - Continues to be on CIWA protocol. - Plan to start IV thiamine 250 mg QD for 5 days (09/14- ) and continue folic acid 1 mg BID - Donepezil 5 mg qhs - Neurology consulted, recs appreciated: Needs placement for severe cognitive impairment. MRI ordered. Start donepezil as above. - Social service referral, counselled extensively regarding alcohol cessation #Back pain, resolved #Elevated CK, c/f early rhabdomyolysis, improving Reports back pain is chronic and painful on admission, but currently tolerable. Denies urinary or fecal incontinence. CK 1000->900->360 following fluids. Lumbar spine CT showed diffuse moderate to advanced lumbar degenerative disc disease, most severe at L2-L3, L3-L4; L5-S1 5 mm central lumbar disc bulge contiguous with the right and left S1 nerve roots, L4-L5 4 mm central lumbar bulge disc. Thoracic spine CT also showed mild to moderate diffuse thoracic degenerative disc disease. Plan: - PT ordered - IV Morphine for pain control #Foot pain, resolved #New blister Does not know when or how blisters originated. Denies foot pain currently. Plan: - Wound care following #Homelessness - Referral to hospital social worker Hospital management: Lines: PIV Diet: Regular Bowel: not indicated GI prophylaxis: not indicated DVT prophylaxis: heparin q12 Disposition: med surg, pending complete AMS workup CODE STATUS: FULL CODE Plan of care discussed with attending Dr. Yanes and PGY-2 Dr. Riley. Antonia Callaway, DO PGY-1 Internal Medicine Attending Provider Attestation/Addendum I have seen and examined the patient. I was physically present for the benavidez portions of the services provided including history, physical exam, diagnosis, treatment plans and orders. I agree with assessment and plan of care as documented by residents. Patient seen and examined at bedside this morning. Continues to be confused, patient is alert and able to carry out some conversation but still continues to have memory issue and appears confused. CIWA score has been stable. Underwent MRI, negative for acute ischemia, only showed microvascular white matter changes. We will continue with thiamine, donepezil and folic acid. Will discuss regarding placement with neurology as patient appears to be unable to make decision for himself at this time. Even though this this note was carefully revised there may still be minor errors in field hand due to voice recognition software. Mery Yanes MD
[2025-09-14] MEDS: DONEPEZIL HCL 5 MG TABLET PO (20:09)
[2025-09-15] VITALS: BP 136/83; PULSE 60; PULSE 70; RESP 18; TEMP 36.7; O2SAT 97
[2025-09-15 04:00] VITALS: BP 112/83; PULSE 58; PULSE 61; RESP 18; TEMP 36.4; O2SAT 93
[2025-09-15 05:51] LABS: Basophils # (Auto) 0.0 Thou/mm3 (0.0-0.2); Basophils % (Auto) 0 % (0-2.5); Eosinophils # (Auto) 0.1 Thou/mm3 (0.0-0.5); Eosinophils % (Auto) 2 % (0-10); Hematocrit 35.3 % (41.0-53.0); Hemoglobin 12.2 g/dL (13.5-16.0); Immature Granulocytes Auto 0.02 Thou/mm3 (0.00-0.00); Lymphocytes # (Auto) 1.1 Thou/mm3 (1.0-4.8); Lymphocytes % (Auto) 23 % (10-50); Mean Corpuscular HGB Conc 34.6 g/dl (31.0-37.0); Mean Corpuscular Hemoglobin 35.0 pg (25.0-35.0); Mean Corpuscular Volume 101 fL (80-100); Monocytes # (Auto) 0.7 Thou/mm3 (0.0-0.8); Monocytes % (Auto) 14 % (0-12); Neutrophils # (Auto) 2.8 Thou/mm3 (1.8-7.7); Neutrophils % (Auto) 60 % (37-80); Nucleated Red Blood Cell # 0.00 Thou/mm3 (0.00-0.00); Nucleated Red Blood Cell % 0 /100 WBC (0); Platelet Count 180 Thou/mm3 (140-440); RDW Standard Deviation 52.4 fL (35.1-43.9); Red Blood Count 3.49 Miln/mm3 (4.50-5.90); White Blood Count 4.7 Thou/mm3 (3.8-10.6)
[2025-09-15 06:24] LABS: Alanine Aminotransferase 16 U/L (10-49); Albumin, Serum 3.8 gm/dL (3.4-4.8); Albumin/Globulin Ratio 1.8 (1.2-2.2); Alkaline Phosphatase 58 U/L (46-116); Anion Gap 9 (7-16); Aspartate Amino Transferase 21 U/L (0-34); BUN/Creatinine Ratio 9 Ratio (12-20); Bilirubin,Total 0.7 mg/dL (0.3-1.2); Blood Urea Nitrogen 7 mg/dL (9-23); Calcium 9.0 mg/dL (8.3-10.6); Calcium (Corrected) 9.2 mg/dL (8.5-10.1); Carbon Dioxide 26.0 mMol/L (20.0-31.0); Chloride 106 mMol/L (98-107); Creatinine (Component) 0.8 mg/dL (0.6-1.3); Estimated Creatinine Clearance 101.3 mL/min (>60); Globulin 2.1 gm/dL (2.3-3.5); Glucose 86 mg/dL (74-106); Magnesium 1.8 mg/dL (1.6-2.6); Osmolality,Calculated 278 (275-295); Potassium 3.8 mMol/L (3.4-5.1); Sodium 141 mMol/L (136-145); Total Protein 5.9 gm/dL (5.7-8.2); eGFR > 60 See Note
[2025-09-15 06:51] LABS: hs-CRP* >20.0 mg/L
[2025-09-15 08:00] VITALS: BP 97/61; PULSE 61; PULSE 63; RESP 18; TEMP 36.2; O2SAT 96
[2025-09-15] MEDS: THIAMINE INJ 100 MG/ML VIAL 2 ML 250 MG IVP (08:47)
[2025-09-15] MEDS: HEPARIN SOD INJ 5000 UNIT/ML VIAL SC ×2 (08:48→20:33)
[2025-09-15 12:00] VITALS: BP 110/74; PULSE 60; PULSE 61; RESP 18; TEMP 36.6; O2SAT 96
--- NOTE | 2025-09-15 13:36 | ESPR_ITS ---
<Statement entered by Justin Peraza MD - 09/15/25 16:03> I have reviewed the note and agree with the resident's assessment & plan with exceptions as below. I have personally reviewed labs, imaging, home meds/prior records, examined the patient, formulated and discussed management plan with my attending Patient was seen and examined at bedside this morning. No acute overnight events. No acute overnight events. Neurology recommended long-term placement for the patient therefore will see if this can be done prior to discharge. CIWA score has been 0-1 therefore this continues to report about this time. Justin Peraza PGY2 Disclaimer: Even though this this note was dictated by speech recognition and even though it was carefully revised there may still be minor errors in refinery operator gas plant due to voice recognition software. Documentation for date of: 09/15/25 Subjective Subjective Interval history: Overnight, CIWA 0-1. No acute overnight events. Patient seen examined at bedside. Patient alert and oriented x 3 but still unable to recall recent events, continues states he is currently in a mental hospital . States this is reason for admission is that he is lost but unable to elaborate. Patient declined for primary team to reach out to his family. Vitals labs reviewed. SBP 110-130s. Hgb 12.2, potassium 3.8, magnesium 1.8. Pending placement to long- term facility due to severe cognitive impairment. Continue thiamine 250 mg IV and donepezil 5 mg daily. CIWA discontinued. Exam Vital Signs Temp Pulse Resp BP Pulse Ox O2 Del Method 98 F 61 18 110/74 96 Room Air 09/15/25 12:00 09/15/25 12:00 09/15/25 12:00 09/15/25 12:00 09/15/25 12:00 09/15/25 12:00 Narrative Exam GENERAL: AOx3, no acute distress, disheveled, unable to recall recent events, not oriented to reason of admission HEENT: mucous membranes moist, bilateral sclera anicteric CARDIOVASCULAR: regular rate and rhythm, S1/S2 present, no murmurs appreciated PULMONARY: clear to auscultation bilaterally, no rales/rhonchi/wheezes ABDOMINAL: soft, non-tender, non-distended, no rebound/guarding, bowel sounds present EXTREMITIES: no peripheral edema SKIN: warm and dry, 1 cm blister proximal inner L calf NEURO: CN II-XII grossly intact, no focal deficits, alert, following commands Objective Labs 09/15/25 05:11 09/15/25 05:11 Labs: Laboratory Results - last 24 hr 09/10/25 09/15/25 01:12 05:11 WBC 4.7 RBC 3.49 L Hgb 12.2 L Hct 35.3 L MCV 101 H MCH 35.0 MCHC 34.6 RDW Std Deviation 52.4 H Plt Count 180 Neut % (Auto) 60 Lymph % (Auto) 23 [place] % (Auto) 14 H Eos % (Auto) 2 Baso % (Auto) 0 Neut # (Auto) 2.8 Lymph # (Auto) 1.1 [place] # (Auto) 0.7 Eos # (Auto) 0.1 Baso # (Auto) 0.0 Immature Gran # (Auto) 0.02 H Absolute Nucleated RBC 0.00 Immature Gran % 0 Nucleated RBC % 0 Sodium 141 Potassium 3.8 Chloride 106 Carbon Dioxide 26.0 Anion Gap 9 BUN 7 L Creatinine 0.8 Estim Creat Clear Calc 101.3 eGFR > 60 BUN/Creatinine Ratio 9 L Glucose 86 Calculated Osmolality 278 Calcium 9.0 Corrected Calcium 9.2 Magnesium 1.8 Total Bilirubin 0.7 AST 21 ALT 16 Alkaline Phosphatase 58 Cardiac CRP High Sens >20.0 H Total Protein 5.9 Albumin 3.8 Globulin 2.1 L Albumin/Globulin Ratio 1.8 Quality Measures Quality Measures none Advance care planning discussed with:: patient Assessment & Plan Assessment Current Active Medications: Generic Name Dose Route Start Last Admin Trade Name Freq PRN Reason Stop Dose Admin Acetaminophen 650 mg 09/10/25 03:17 Acetaminophen 325 Mg Tablet PO 10/10/25 03:16 Q6H PRN Fever >101.5 Al Hydrox/Mg Hydrox/Simethicone 30 ml 09/10/25 03:17 Mg Hyd/Al Hyd/Carolee (Maalox Reg) Susp 30 Ml Udc PO 10/10/25 03:16 Q6H PRN Indigestion Bisacodyl 10 mg 09/10/25 03:17 Bisacodyl 5 Mg Tabec PO 10/10/25 03:16 QDAY PRN CONSTIPATION Protocol Donepezil HCl 5 mg 09/13/25 21:00 09/14/25 20:09 Donepezil Hcl 5 Mg Tablet PO 10/13/25 20:59 5 mg HS STEPHENIE Administration Heparin Sodium (Porcine) 5,000 unit 09/11/25 09:00 09/15/25 08:48 Heparin Sod Inj 5000 Unit/Ml Vial SC 09/25/25 08:59 5,000 unit Q12HR STEPHENIE Administration Thiamine HCl 250 mg 09/14/25 09:00 09/15/25 08:47 Thiamine Inj 100 Mg/Ml Vial 2 Ml IVP 09/18/25 23:30 250 mg QDAY STEPHENIE Administration Plan Mc Rodriguez 65M with pmhx significant for alcohol abuse and arthritis who presented with back pain, foot pain and confusion. Admitted overnight for management of rhabdomyolysis, alcohol abuse. #Alcohol use with possible Wernicke encephalopathy Reports year-long history of alcoholism which has worsened over the past few years, ports drinks 750 mL of hard liquor every day. Urine alcohol <3.0. CIWA stable. Continues to be AOx3, however still slightly confused. EEG negative. MRI negative for acute processes, no acute infarct, moderate chronic microvascular white matter change. B12 wnl, TSH elevated but T4 wnl, syphillis and HIV neg, trig 104, cho 174, LDL 110, HDL 43. Plan: - CIWA discontinued - IV thiamine 250 mg QD for 5 days (09/14- ) and continue folic acid 1 mg BID - Donepezil 5 mg qhs - Neurology consulted, recs appreciated: Needs alf placement for severe cognitive impairment. Start donepezil as above. - Social service referral, counselled extensively regarding alcohol cessation #Back pain, resolved #Elevated CK, c/f early rhabdomyolysis, resolved Reports back pain is chronic and painful on admission, but currently tolerable. Denies urinary or fecal incontinence. CK 1000->900->360 following fluids. Lumbar spine CT showed diffuse moderate to advanced lumbar degenerative disc disease, most severe at L2-L3, L3-L4; L5-S1 5 mm central lumbar disc bulge contiguous with the right and left S1 nerve roots, L4-L5 4 mm central lumbar bulge disc. Thoracic spine CT also showed mild to moderate diffuse thoracic degenerative disc disease. Plan: - PT following #Foot pain, resolved #New blister Does not know when or how blisters originated. Denies foot pain currently. Plan: - Wound care following #Homelessness - Referral to manager social services Hospital management: Lines: PIV Diet: Regular Bowel: not indicated GI prophylaxis: not indicated DVT prophylaxis: heparin q12 Disposition: med surg, pending SNF CODE STATUS: FULL CODE Plan of care discussed with attending Dr. Yanes and PGY-2 Dr. Riley. Antonia Callawya, PGY-1 Internal Medicine Attending Provider Attestation/Addendum I have seen and examined the patient. I was physically present for the benavidez portions of the services provided including history, physical exam, diagnosis, treatment plans and orders. I agree with assessment and plan of care as documented by residents. Patient seen and examined at bedside this morning. No acute overnight events. Appears comfortable and denies any new complaints. Has been calm and cooperative but confused about the situation. Continues to have memory issues. CIWA score has been low, we will discontinue CIWA. Signs are stable, saturating well on room air. IV thiamine and donepezil. Rhabdomyolysis has resolved. Neurology following closely, appreciate recommendations.Awaiting placement to long-term facility due to cognitive impairment. Even though this this note was carefully revised there may still be minor errors in refinery operator gas plant due to voice recognition software. Mery Yanes MD
[2025-09-15 14:37] VITALS: BMI 24.1
--- NOTE | 2025-09-15 15:20 | PC.SS ---
Follow up note: SS submitted inquiry for [facility] placement. SS received a p/c from [facility] indicating they may consider taking patient as long as he has no behaviors. SS does not see any documented behaviors in chart. On site eval set for tomorrow by facility.
[2025-09-15 16:00] VITALS: BP 123/79; PULSE 61; PULSE 90; RESP 16; TEMP 36.3; O2SAT 97
[2025-09-15 20:00] VITALS: BP 124/69; PULSE 57; PULSE 62; RESP 18; TEMP 36.6; O2SAT 96
[2025-09-15] MEDS: DONEPEZIL HCL 5 MG TABLET PO (20:33)
[2025-09-16] VITALS (7 sets, daily range): BP systolic 99–118; BP diastolic 66–80; PULSE 52–86; RESP 18–19; TEMP 36.4–37; O2SAT 96–98
[2025-09-16] MEDS: THIAMINE INJ 100 MG/ML VIAL 2 ML 250 MG IVP (08:00)
[2025-09-16] MEDS: HEPARIN SOD INJ 5000 UNIT/ML VIAL SC ×2 (08:00→20:04)
--- NOTE | 2025-09-16 14:59 | ESPR_ITS ---
<Statement entered by Justin Peraza MD - 09/16/25 15:20> I have reviewed the note and agree with the resident's assessment & plan with exceptions as below. I have personally reviewed labs, imaging, home meds/prior records, examined the patient, formulated and discussed management plan with my attending. Patient was seen and examined at bedside this morning. No acute overnight events. Still pending placement for long-term care. Social workers will try and reach out to family members. Justin Peraza PGY2 Disclaimer: Even though this this note was dictated by speech recognition and even though it was carefully revised there may still be minor errors in java xml developer due to voice recognition software. Documentation for date of: 09/16/25 Subjective Subjective Interval history: No acute overnight events. Patient seen and examined at bedside. Patient is oriented x 3 however unable to count recent events such as recollecting recent events or remembering faces he was instructed to remember. Vitals reviewed stable. Pending long-term placement. Continue donepezil and thiamine. Exam Vital Signs Temp Pulse Resp BP Pulse Ox O2 Del Method 97.7 F 56 L 18 115/66 96 Room Air 09/16/25 12:00 09/16/25 12:00 09/16/25 12:00 09/16/25 12:00 09/16/25 12:00 09/16/25 12:00 Narrative Exam GENERAL: AOx3, no acute distress, disheveled, unable to recall recent events, not oriented to reason of admission HEENT: mucous membranes moist, bilateral sclera anicteric CARDIOVASCULAR: regular rate and rhythm, S1/S2 present, no murmurs appreciated PULMONARY: clear to auscultation bilaterally, no rales/rhonchi/wheezes ABDOMINAL: soft, non-tender, non-distended, no rebound/guarding, bowel sounds present EXTREMITIES: no peripheral edema SKIN: warm and dry, 1 cm blister proximal inner L calf NEURO: CN II-XII grossly intact, no focal deficits, alert, following commands Objective Labs 09/15/25 05:11 09/15/25 05:11 Quality Measures Quality Measures none Advance care planning discussed with:: patient Assessment & Plan Assessment Current Active Medications: Generic Name Dose Route Start Last Admin Trade Name Freq PRN Reason Stop Dose Admin Acetaminophen 650 mg 09/10/25 03:17 Acetaminophen 325 Mg Tablet PO 11/16/25 03:16 Q6H PRN Fever >101.5 Al Hydrox/Mg Hydrox/Simethicone 30 ml 09/10/25 03:17 Mg Hyd/Al Hyd/Carolee (Maalox Reg) Susp 30 Ml Udc PO 10/10/25 03:16 Q6H PRN Indigestion Bisacodyl 10 mg 09/10/25 03:17 Bisacodyl 5 Mg Tabec PO 10/10/25 03:16 QDAY PRN CONSTIPATION Protocol Donepezil HCl 5 mg 09/13/25 21:00 09/15/25 20:33 Donepezil Hcl 5 Mg Tablet PO 10/13/25 20:59 5 mg HS STEPHENIE Administration Heparin Sodium (Porcine) 5,000 unit 09/11/25 09:00 09/16/25 08:00 Heparin Sod Inj 5000 Unit/Ml Vial SC 09/25/25 08:59 5,000 unit Q12HR STEPHEINE Administration Thiamine HCl 250 mg 09/14/25 09:00 09/16/25 08:00 Thiamine Inj 100 Mg/Ml Vial 2 Ml IVP 09/18/25 23:30 250 mg QDAY STEPHENIE Administration Plan Mc Rodriguez 65M with pmhx significant for alcohol abuse and arthritis who presented with back pain, foot pain and confusion. Admitted overnight for management of rhabdomyolysis, alcohol abuse. #Alcohol use with possible Wernicke encephalopathy or Korsakoff syndrome Reports year-long history of alcoholism which has worsened over the past few years, ports drinks 750 mL of hard liquor every day. Urine alcohol <3.0. CIWA stable. Continues to be AOx3, however still slightly confused. EEG negative. MRI negative for acute processes, no acute infarct, moderate chronic microvascular white matter change. B12 wnl, TSH elevated but T4 wnl, syphillis and HIV neg, trig 104, cho 174, LDL 110, HDL 43. Plan: - CIWA discontinued - IV thiamine 250 mg QD for 5 days (09/14- ) and continue folic acid 1 mg BID - Donepezil 5 mg qhs - Neurology consulted, recs appreciated: Needs terminal superintendent placement for severe cognitive impairment. Start donepezil as above. - Social service referral, counselled extensively regarding alcohol cessation - Pending retirement placement #Back pain, resolved #Elevated CK, c/f early rhabdomyolysis, resolved Reports back pain is chronic and painful on admission, but currently tolerable. Denies urinary or fecal incontinence. CK 1000->900->360 following fluids. Lumbar spine CT showed diffuse moderate to advanced lumbar degenerative disc disease, most severe at L2-L3, L3-L4; L5-S1 5 mm central lumbar disc bulge contiguous with the right and left S1 nerve roots, L4-L5 4 mm central lumbar bulge disc. Thoracic spine CT also showed mild to moderate diffuse thoracic degenerative disc disease. Plan: - PT following #Foot pain, resolved #New LLE blister, resolved Does not know when or how blisters originated. Denies foot pain currently. Plan: - Wound care following #Homelessness - Referral to social media strategist Hospital management: Lines: PIV Diet: Regular Bowel: not indicated GI prophylaxis: not indicated DVT prophylaxis: heparin q12 Disposition: med surg, pending SNF CODE STATUS: FULL CODE Plan of care discussed with attending Dr. Yanes and PGY-2 Dr. Riley. Antonia Callaway, PGY-1 Internal Medicine Attending Provider Attestation/Addendum I have seen and examined the patient. I was physically present for the benavidez portions of the services provided including history, physical exam, diagnosis, treatment plans and orders. I agree with assessment and plan of care as documented by residents. Patient seen and examined at bedside this morning. Appears comfortable and denies any new complaints. Has been able to answer some of the orientation question but continues to be confused with memory deficits. Awaiting placement in long-term facility. Even though this this note was carefully revised there may still be minor errors in java xml developer due to voice recognition software. Mery Yanes MD
--- NOTE | 2025-09-16 15:54 | PC.SS ---
follow up note: SS sent inquiries throughout the [facility] for placement. Patient is amblatory up to 300 feet documented, hx: substance abuse and homeless. Daughter is participating in plans. Patient is altered. [facility] states they will stop by tomorrow morning for an on site eval. SS also spoke to [facility] in [place] and they are reviewing information. They do not have a bed available this week but will review for next week.
[2025-09-16] MEDS: DONEPEZIL HCL 5 MG TABLET PO (20:03)
[2025-09-17] VITALS (9 sets, daily range): BP systolic 105–122; BP diastolic 55–74; PULSE 54–77; RESP 15–20; TEMP 36.7–37.2; O2SAT 93–99
[2025-09-17] MEDS: THIAMINE INJ 100 MG/ML VIAL 2 ML 250 MG IVP (08:26)
[2025-09-17] MEDS: HEPARIN SOD INJ 5000 UNIT/ML VIAL SC ×2 (08:30→20:29)
--- NOTE | 2025-09-17 13:45 | PC.SS ---
Addendum entered by Serena Stone 09/17/25 16:06: Spoke to daughter, Usha with update on placement. Usha will be following up with Social Security office regarding patient's income. Patient receives 2K monthly. Daughter will also contact patient's brother who lives in [facility] Patient used to intermittently stay with friends and family but became rowdy and now no one wants to assist. SS called [facility] and they are closing facility [facility] #[phone] SS left [facility] for [facility] [place] [phone] SS left [facility] declined SS left mssg with [facility] #[phone] SS left m[facility] for [facility] [phone] SS left [facility] for [facility], no beds SS left [facility] for [facility] [phone] Original Note: followup note: [facility] did an on site and declined patient [facility] [place] [place] [facility] in [place] declined All facilitiies in [facility] declined SS resubmitted to all surrounding areas in the [facility]. No acceptance to date. SS spoke to [facility] [place] and they currently have no beds but state to fax referal. Fax# [phone], #[phone]
--- NOTE | 2025-09-17 15:52 | ESPR_ITS ---
<Statement entered by Justin Peraza MD - 09/17/25 17:36> I have reviewed the note and agree with the resident's assessment & plan with exceptions as below. I have personally reviewed labs, imaging, home meds/prior records, examined the patient, formulated and discussed management plan with my attending Patient was seen and examined at bedside this morning. No acute overnight events. Patient still pending long-term placement. Today will be the last day for thiamine to 50 therefore tomorrow we will go down to 100 mg daily. Otherwise no other complaint at this time. Justin Peraza PGY2 Disclaimer: Even though this this note was dictated by speech recognition and even though it was carefully revised there may still be minor errors in grinder brake lining due to voice recognition software. Documentation for date of: 09/17/25 Subjective Subjective Interval history: No acute overnight events. Patient seen and examined at bedside. Alert and oriented x 3. Still unable to recall recent events and has poor insight regarding current situation. Vitals reviewed, stable. Pending long-term placement. Continue donepezil and thiamine, plan to deescalate to 100 mg QD tomorrow. Exam Vital Signs Temp Pulse Resp BP Pulse Ox O2 Del Method 98.6 F 55 L 16 105/70 96 Room Air 09/17/25 12:00 09/17/25 12:00 09/17/25 12:00 09/17/25 12:00 09/17/25 12:00 09/17/25 12:00 Narrative Exam GENERAL: AOx3, no acute distress, disheveled, unable to recall recent events, not oriented to reason of admission, poor insight HEENT: mucous membranes moist, bilateral sclera anicteric CARDIOVASCULAR: regular rate and rhythm, S1/S2 present, no murmurs appreciated PULMONARY: clear to auscultation bilaterally, no rales/rhonchi/wheezes ABDOMINAL: soft, non-tender, non-distended, no rebound/guarding, bowel sounds present EXTREMITIES: no peripheral edema SKIN: warm and dry NEURO: CN II-XII grossly intact, no focal deficits, alert, following commands Objective Labs 09/15/25 05:11 09/15/25 05:11 Quality Measures Quality Measures none Advance care planning discussed with:: patient Assessment & Plan Assessment Current Active Medications: Generic Name Dose Route Start Last Admin Trade Name Freq PRN Reason Stop Dose Admin Acetaminophen 650 mg 09/10/25 03:17 Acetaminophen 325 Mg Tablet PO 10/10/25 03:16 Q6H PRN Fever >101.5 Al Hydrox/Mg Hydrox/Simethicone 30 ml 09/10/25 03:17 Mg Hyd/Al Hyd/Carolee (Maalox Reg) Susp 30 Ml Udc PO 10/10/25 03:16 Q6H PRN Indigestion Bisacodyl 10 mg 09/10/25 03:17 Bisacodyl 5 Mg Tabec PO 10/10/25 03:16 QDAY PRN CONSTIPATION Protocol Donepezil HCl 5 mg 09/13/25 21:00 09/16/25 20:03 Donepezil Hcl 5 Mg Tablet PO 10/13/25 20:59 5 mg HS STEPHENIE Administration Heparin Sodium (Porcine) 5,000 unit 09/11/25 09:00 09/17/25 08:30 Heparin Sod Inj 5000 Unit/Ml Vial SC 09/25/25 08:59 5,000 unit Q12HR STEPHENIE Administration Thiamine HCl 250 mg 09/14/25 09:00 09/17/25 08:26 Thiamine Inj 100 Mg/Ml Vial 2 Ml IVP 09/18/25 23:30 250 mg QDAY STEPHENIE Administration Plan Mc Rodriguez 65M with pmhx significant for alcohol abuse and arthritis who presented to [facility] 09/10 for back pain, foot pain and confusion, admitted for possible Wernicke vs Korsakoff. #Alcohol use with possible Wernicke encephalopathy or Korsakoff syndrome Reports year-long history of alcoholism which has worsened over the past few years, ports drinks 750 mL of hard liquor every day. Urine alcohol <3.0. CIWA stable. Continues to be AOx3, however still slightly confused. EEG negative. MRI negative for acute processes, no acute infarct, moderate chronic microvascular white matter change. B12 wnl, TSH elevated but T4 wnl, syphillis and HIV neg, trig 104, cho 174, LDL 110, HDL 43. Plan: - CIWA discontinued - IV thiamine 250 mg QD for 5 days (09/14-09/18), subsequently 100 mg QD and continue folic acid 1 mg BID - Donepezil 5 mg qhs - Neurology consulted, recs appreciated: Needs custodial placement for severe cognitive impairment. - Social service referral, counselled extensively regarding alcohol cessation - Pending supervisor intermediates placement #Back pain, resolved #Elevated CK, c/f early rhabdomyolysis, resolved Reports back pain is chronic and painful on admission, but currently tolerable. Denies urinary or fecal incontinence. CK 1000->900->[address] fluids. Lumbar spine CT showed diffuse moderate to advanced lumbar degenerative disc disease, most severe at L2-L3, L3-L4; L5-S1 5 mm central lumbar disc bulge contiguous with the right and left S1 nerve roots, L4-L5 4 mm central lumbar bulge disc. Thoracic spine CT also showed mild to moderate diffuse thoracic degenerative disc disease. Plan: - PT following #Foot pain, resolved #New LLE blister, resolved Does not know when or how blisters originated. Denies foot pain currently. Plan: - Wound care following #Homelessness - Referral to social worker psychiatric Hospital management: Lines: PIV Diet: Regular Bowel: not indicated GI prophylaxis: not indicated DVT prophylaxis: heparin q12 Disposition: med surg, pending SNF CODE STATUS: FULL CODE Plan of care discussed with attending Dr. Brown and PGY-2 Dr. Riley. Antonia Callaway DO PGY-1 Internal Medicine Attending Provider Attestation/Addendum Marti Brand DO, attest that I was physically present for the benavidez portions of the service and evaluated the patient with the resident and I reviewed and discussed the case with the resident and agree with the resident's findings and plans of care as documented above Patient seen and evaluated this AM. Patient has no acute complaints. He is pending placement at this time [place] to going to a SNF. He had received high dose thiamine initially and can be transitioned to thiamine 100mg PO daily tomorrow.
[2025-09-17] MEDS: DONEPEZIL HCL 5 MG TABLET PO (20:28)
[2025-09-18] VITALS: BP 111/66; PULSE 60; RESP 17; TEMP 36.4; O2SAT 96
[2025-09-18 04:00] VITALS: BP 107/61; PULSE 56; RESP 17; TEMP 36.6; O2SAT 98
[2025-09-18 07:45] VITALS: BP 114/65; PULSE 75; RESP 18; TEMP 36.8; O2SAT 99
[2025-09-18] MEDS: THIAMINE INJ 100 MG/ML VIAL 2 ML 250 MG IVP (08:36)
[2025-09-18] MEDS: HEPARIN SOD INJ 5000 UNIT/ML VIAL SC ×2 (08:37→20:04)
[2025-09-18 12:00] VITALS: BP 123/60; PULSE 56; RESP 18; TEMP 36.3; O2SAT 98
--- NOTE | 2025-09-18 13:37 | ESPR_ITS ---
Documentation for date of: 09/18/25 Subjective Subjective Interval history: Overnight events, labs reviewed. The patient examined this a.m. at bedside. The patient has no active complaints. Swtiched IV thiamine to PO , the patient is asking if we could take out the IV line. For now , we would keep IV line while patient is hospitalized, Pending placement. Exam Vital Signs Temp Pulse Resp BP Pulse Ox O2 Del Method 97.4 F 56 L 18 123/60 98 Room Air 09/18/25 12:00 09/18/25 12:00 09/18/25 12:00 09/18/25 12:00 09/18/25 12:00 09/18/25 12:00 Narrative Exam GENERAL: AOx3, no acute distress, disheveled, unable to recall recent events, not oriented to reason of admission HEENT: mucous membranes moist, bilateral sclera anicteric CARDIOVASCULAR: regular rate and rhythm, S1/S2 present, no murmurs appreciated PULMONARY: clear to auscultation bilaterally, no rales/rhonchi/wheezes ABDOMINAL: soft, non-tender, non-distended, no rebound/guarding, bowel sounds present EXTREMITIES: no peripheral edema SKIN: warm and dry NEURO: CN II-XII grossly intact, no focal deficits, alert, following commands Objective Labs 09/15/25 05:11 09/15/25 05:11 Quality Measures Quality Measures none Advance care planning discussed with:: patient Assessment & Plan Assessment Current Active Medications: Generic Name Dose Route Start Last Admin Trade Name Freq PRN Reason Stop Dose Admin Acetaminophen 650 mg 09/10/25 03:17 Acetaminophen 325 Mg Tablet PO 10/10/25 03:16 Q6H PRN Fever >101.5 Al Hydrox/Mg Hydrox/Simethicone 30 ml 09/10/25 03:17 Mg Hyd/Al Hyd/Carolee (Maalox Reg) Susp 30 Ml Udc PO 10/10/25 03:16 Q6H PRN Indigestion Bisacodyl 10 mg 09/10/25 03:17 Bisacodyl 5 Mg Tabec PO 10/10/25 03:16 QDAY PRN CONSTIPATION Protocol Donepezil HCl 5 mg 09/13/25 21:00 09/17/25 20:28 Donepezil Hcl 5 Mg Tablet PO 10/13/25 20:59 5 mg HS STEPHENIE Administration Heparin Sodium (Porcine) 5,000 unit 09/11/25 09:00 09/18/25 08:37 Heparin Sod Inj 5000 Unit/Ml Vial SC 09/25/25 08:59 5,000 unit Q12HR STEPHENIE Administration Thiamine HCl 100 mg 09/18/25 10:45 09/18/25 11:23 Thiamine 100 Mg Tablet PO 10/18/25 10:44 Not Given QDAY STEPHENIE Plan Mc Rodriguez 65M with pmhx significant for alcohol abuse and arthritis who presented to [facility] 09/10 for back pain, foot pain and confusion, admitted for possible Wernicke vs Korsakoff. #Alcohol use with possible Wernicke encephalopathy or Korsakoff syndrome Reports year-long history of alcoholism which has worsened over the past few years, ports drinks 750 mL of hard liquor every day. Urine alcohol <3.0. CIWA stable. Continues to be AOx3, however still slightly confused. EEG negative. MRI negative for acute processes, no acute infarct, moderate chronic microvascular white matter change. B12 wnl, TSH elevated but T4 wnl, syphillis and HIV neg, trig 104, cho 174, LDL 110, HDL 43. Plan: - CIWA discontinued - PO thiamine 100 mg QD and continue folic acid 1 mg BID - Donepezil 5 mg qhs - Neurology consulted, recs appreciated: Needs jail placement for severe cognitive impairment. - Social service referral, counselled extensively regarding alcohol cessation - Pending watermelon inspector placement #Back pain, resolved #Elevated CK, c/f early rhabdomyolysis, resolved Reports back pain is chronic and painful on admission, but currently tolerable. Denies urinary or fecal incontinence. CK 1000->900->360 following fluids. Lumbar spine CT showed diffuse moderate to advanced lumbar degenerative disc disease, most severe at L2-L3, L3-L4; L5-S1 5 mm central lumbar disc bulge contiguous with the right and left S1 nerve roots, L4-L5 4 mm central lumbar bulge disc. Thoracic spine CT also showed mild to moderate diffuse thoracic degenerative disc disease. Plan: - PT following #Foot pain, resolved #New LLE blister, resolved Does not know when or how blisters originated. Denies foot pain currently. Plan: - Wound care following #Homelessness - Referral to social media sr strategy manager Hospital management: Lines: PIV Diet: Regular Bowel: not indicated GI prophylaxis: not indicated DVT prophylaxis: heparin q12 Disposition: med surg, pending SNF CODE STATUS: FULL CODE Plan of care discussed with attending Dr. Kevin Frost PGY 3 Attending Provider Attestation/Addendum IMarti DO, attest that I was physically present for the benavidez portions of the service and evaluated the patient with the resident and I reviewed and discussed the case with the resident and agree with the resident's findings and plans of care as documented above Patient seen and evaluated this AM. No acute events overnight. Patient is ambulatory and states he is feeling well. Pending placement at SNF.
--- NOTE | 2025-09-18 13:54 | PD.VPROG1 ---
Telemedicine visit statement This visit was conducted with the use of interactive audio and video telecommunications system that permits real time communication between the patient and the provider. Patient's verbal consent for virtual visit was obtained on 09/18/25 at 1354. Documentation for date of: 09/18/25 Subjective Subjective Interval history: Patient is in MedSurg, moves both upper and lower extremities. Tolerating oral diet well. Virtual exam Vital Signs Temp Pulse Resp BP Pulse Ox O2 Del Method 97.4 F 56 L 18 123/60 98 Room Air 09/18/25 12:00 09/18/25 12:00 09/18/25 12:00 09/18/25 12:00 09/18/25 12:00 09/18/25 12:00 Objective Labs 09/15/25 05:11 09/15/25 05:11 Assessment & Plan Assessment 1) Altered mental status: Resolved. Suspected cognitive impairment with baseline dementia/chronic alcohol use/nutritional deficiency. Continue donepezil 5 mg at bedtime. Consider increasing the dose after a month and subsequently add memantine for preventing progression. (2) Rhabdomyolysis: Resolved, treated with hydration
[2025-09-18 16:00] VITALS: BP 105/67; PULSE 79; RESP 18; TEMP 36.5; O2SAT 98
[2025-09-18 20:00] VITALS: BP 126/79; PULSE 69; RESP 18; TEMP 36.5; O2SAT 98
[2025-09-18] MEDS: DONEPEZIL HCL 5 MG TABLET PO (20:04)
[2025-09-19] VITALS: BP 104/62; PULSE 60; RESP 17; TEMP 36.7; O2SAT 98
[2025-09-19 07:44] VITALS: BP 106/63; PULSE 78; RESP 18; TEMP 36.6; O2SAT 96
[2025-09-19] MEDS: THIAMINE 100 MG TABLET PO (09:32)
--- NOTE | 2025-09-19 13:53 | ESPR_ITS ---
<Statement entered by Justin Peraza MD - 09/19/25 14:33> I have reviewed the note and agree with the resident's assessment & plan with exceptions as below. I have personally reviewed labs, imaging, home meds/prior records, examined the patient, formulated and discussed management plan with my attending Patient was seen and examined at bedside this morning. No acute overnight events. Still pending placement. Justin Peraza PGY2 Disclaimer: Even though this this note was dictated by speech recognition and even though it was carefully revised there may still be minor errors in autographer due to voice recognition software. Documentation for date of: 09/19/25 Subjective Subjective Interval history: No acute overnight events. Seen examined at bedside. Patient reports has plans to drive to [place] following discharge tomorrow, was reminded that he is unable to make his own decisions at this time and cannot be safely discharged without long-term placement. Vitals reviewed to be stable. Pending long-term placement. Exam Vital Signs Temp Pulse Resp BP Pulse Ox O2 Del Method 97.8 F 78 18 106/63 96 Room Air 09/19/25 07:44 09/19/25 07:44 09/19/25 07:44 09/19/25 07:44 09/19/25 07:44 09/19/25 07:44 Narrative Exam GENERAL: AOx3, no acute distress, disheveled, unable to recall recent events, not oriented to reason of admission, malodorous HEENT: mucous membranes moist, bilateral sclera anicteric CARDIOVASCULAR: regular rate and rhythm, S1/S2 present, no murmurs appreciated PULMONARY: clear to auscultation bilaterally, no rales/rhonchi/wheezes ABDOMINAL: soft, non-tender, non-distended, no rebound/guarding, bowel sounds present EXTREMITIES: no peripheral edema SKIN: warm and dry NEURO: CN II-XII grossly intact, no focal deficits, alert, following commands Objective Labs 09/15/25 05:11 09/15/25 05:11 Quality Measures Quality Measures none Advance care planning discussed with:: patient Assessment & Plan Assessment Current Active Medications: Generic Name Dose Route Start Last Admin Trade Name Freq PRN Reason Stop Dose Admin Acetaminophen 650 mg 09/10/25 03:17 Acetaminophen 325 Mg Tablet PO 10/10/25 03:16 Q6H PRN Fever >101.5 Al Hydrox/Mg Hydrox/Simethicone 30 ml 09/10/25 03:17 Mg Hyd/Al Hyd/Carolee (Maalox Reg) Susp 30 Ml Udc PO 10/10/25 03:16 Q6H PRN Indigestion Bisacodyl 10 mg 09/10/25 03:17 Bisacodyl 5 Mg Tabec PO 10/10/25 03:16 QDAY PRN CONSTIPATION Protocol Donepezil HCl 5 mg 09/13/25 21:00 09/18/25 20:04 Donepezil Hcl 5 Mg Tablet PO 10/13/25 20:59 5 mg HS STEPHENIE Administration Heparin Sodium (Porcine) 5,000 unit 09/11/25 09:00 09/19/25 09:30 Heparin Sod Inj 5000 Unit/Ml Vial SC 09/25/25 08:59 Not Given Q12HR STEPHENIE Thiamine HCl 100 mg 09/18/25 10:45 09/19/25 09:32 Thiamine 100 Mg Tablet PO 10/18/25 10:44 100 mg QDAY STEPHENIE Administration Plan Mc Rodriguez 65M with pmhx significant for alcohol abuse and arthritis who presented to [facility] 09/10 for back pain, foot pain and confusion, admitted for possible Wernicke vs Korsakoff. #Acute vs chronic encephalopathy #Alcohol use with possible Wernicke encephalopathy or Korsakoff syndrome Reports year-long history of alcoholism which has worsened over the past few years, ports drinks 750 mL of hard liquor every day. Urine alcohol <3.0. CIWA stable. Continues to be AOx3, however still slightly confused. EEG negative. MRI negative for acute processes, no acute infarct, moderate chronic microvascular white matter change. B12 wnl, TSH elevated but T4 wnl, syphillis and HIV neg, trig 104, cho 174, LDL 110, HDL 43. Plan: - PO thiamine 100 mg QD and continue folic acid 1 mg BID - Donepezil 5 mg qhs - Neurology consulted, recs appreciated: Needs extermination inspector placement for severe cognitive impairment. - Social service referral, counselled extensively regarding alcohol cessation - Pending fpc placement #Back pain, resolved #Elevated CK, c/f early rhabdomyolysis, resolved Reports back pain is chronic and painful on admission, but currently tolerable. Denies urinary or fecal incontinence. CK 1000->900->360 following fluids. Lumbar spine CT showed diffuse moderate to advanced lumbar degenerative disc disease, most severe at L2-L3, L3-L4; L5-S1 5 mm central lumbar disc bulge contiguous with the right and left S1 nerve roots, L4-L5 4 mm central lumbar bulge disc. Thoracic spine CT also showed mild to moderate diffuse thoracic degenerative disc disease. Plan: - PT following #Foot pain, resolved #New LLE blister, resolved Does not know when or how blisters originated. Denies foot pain currently. Plan: - Wound care following #Homelessness - Referral to social work associate Hospital management: Lines: PIV Diet: Regular Bowel: not indicated GI prophylaxis: not indicated DVT prophylaxis: heparin q12 Disposition: med surg, pending SNF CODE STATUS: FULL CODE Plan of care discussed with attending Dr. Brown and PGY-2 Dr. Riley. Antonia Callaway DO Internal Medicine PGY-1 Attending Provider Attestation/Addendum Marti Brand DO, attest that I was physically present for the benavidez portions of the service and evaluated the patient with the resident and I reviewed and discussed the case with the resident and agree with the resident's findings and plans of care as documented above Patient seen and evaluated this AM. Patient states he is feeling well and anxious to go to [place]. Patient states his brother lives in [place]. Patient is disheveled with poor hygiene and malodor. He otherwise has no acute complaints. Discussed with rn social services and continues to look for SNF.
[2025-09-19 14:00] VITALS: BP 119/68; PULSE 79; RESP 19; TEMP 36.4; O2SAT 97
[2025-09-19] MEDS: NICOTINE PATCH 21 MG/24 HR PATCH.TD24 TOP (16:21)
[2025-09-19] MEDS: DONEPEZIL HCL 5 MG TABLET PO (20:09)
[2025-09-19] MEDS: HEPARIN SOD INJ 5000 UNIT/ML VIAL SC (20:11)
[2025-09-19 21:55] VITALS: BP 114/70; PULSE 58; RESP 18; TEMP 36.6; O2SAT 99
--- NOTE | 2025-09-19 23:14 | ESPR_ITS ---
Documentation for date of: 09/19/25 Subjective Subjective Interval history: Mr. Rodriguez is a 65-year- male with chronic drug and alcohol use and osteoarthritis presented with back pain, foot pain, confusion. Patient is homeless. Patient is confused, disoriented, and not a good historian. No history of recent trauma or falls. Workup in the ER: Labs showed mild anemia and elevated CK. Neurology was consulted to evaluate for altered mental status. Patient was seen in [facility] at the bedside, no new symptoms or complaints today. Patient is anxious to be discharged home. Exam - Neurology Vital Signs Temp Pulse Resp BP Pulse Ox O2 Del Method 97.8 F 58 L 18 114/70 99 Room Air 09/19/25 21:55 09/19/25 21:55 09/19/25 21:55 09/19/25 21:55 09/19/25 21:55 09/19/25 21:55 Narrative Exam GENERAL APPEARANCE: Well hydrated, well-nourished in no acute distress. HEENT: Normocephalic, atraumatic, extraocular movements intact. Pupils: Equal reacting to light and accommodation NECK: Supple, no JVD or bruits. CARDIOVASULAR: Heart: S1, S2 heard, regular without S3-S4 or murmur no rubs or gallops. LUNGS/CHEST: Clear to auscultation bilaterally. No rails, rhonchi, or wheezing. Normal inspection. ABDOMEN: Soft, nontender, with normal bowel sounds. No pulsatile masses. No rebound, rigidity, or guarding. Normal inspection and palpation. EXTREMITIES: Normal inspection and palpation. No edema, clubbing or cyanosis. SKIN: Warm and dry without rashes. Normal inspection. MUSCULOSKELETAL: No cervical, thoracic, lumbar or midline bony tenderness. Normal inspection. NEURO: Alert, awake and oriented x2. Cranial nerves: II through XII grossly intact. Speech and language: Normal with no dysarthria or dysphasia. Motor system: Tone and bulk: Normal: Strength: 5 out of 5 in all 4 extremities; No pronator drift noted. Deep tendon reflexes: 2+ bilaterally symmetrical. Plantar reflex: Downgoing bilaterally. Sensory system: Intact to all modalities of sensation bilaterally. Coordination: Intact to [id number] and [id number] test bilaterally. No ataxia, no dysmetria, or dysdiadochokinesia noted. No intention tremors noted. Gait: Normal. Toe, heel, tandem walk all are normal. Romberg: Negative. No signs of meningeal irritation noted. PSYCHIATRIC: Normal mood and affect. Objective Labs 09/15/25 05:11 09/15/25 05:11 Assessment & Plan Assessment and plan (1) Altered mental status: Status: Resolved Assessment and plan: Continue with the donepezil, consider increasing the dose after a month and then add memantine for preventing progression of memory loss. He needs a driving evaluation by DMV before he can start driving. Patient is stable from neurology standpoint for discharge with supervision for safety. (2) Rhabdomyolysis: Status: Resolved
[2025-09-20] MEDS: MELATONIN 3 MG TABLET 6 MG PO (00:07)
[2025-09-20 06:00] VITALS: BP 105/67; PULSE 58; RESP 17; TEMP 36.3; O2SAT 97
[2025-09-20 06:37] LABS: Vitamin B1 (Thiamine)* >1200 nmol/L (8-30)
[2025-09-20 07:47] VITALS: BP 103/70; PULSE 85; RESP 17; TEMP 36.3; O2SAT 93
[2025-09-20] MEDS: THIAMINE 100 MG TABLET PO (09:55)
[2025-09-20] MEDS: NICOTINE PATCH 21 MG/24 HR PATCH.TD24 TOP (09:55)
[2025-09-20] MEDS: HEPARIN SOD INJ 5000 UNIT/ML VIAL SC (09:55)
--- NOTE | 2025-09-20 13:31 | ESPR_ITS ---
<Statement entered by Justin Peraza MD - 09/20/25 13:49> I have reviewed the note and agree with the resident's assessment & plan with exceptions as below. I have personally reviewed labs, imaging, home meds/prior records, examined the patient, formulated and discussed management plan with my attending Patient was seen and examined bedside's morning. No acute overnight events. Still pending long-term placement. Justin Peraza PGY2 Disclaimer: Even though this this note was dictated by speech recognition and even though it was carefully revised there may still be minor errors in fiber glass worker due to voice recognition software. Documentation for date of: 09/20/25 Subjective Subjective Interval history: No acute overnight events. Patient is examined at bedside. Patient has tendency to wander despite instruction to not. Requires daily reminder that medicine team does not believe he is able to make his own decisions. Patient denies any bodily pain, no new complaints. Vitals reviewed to be stable. Pending long-term SNF placement. Exam Vital Signs Temp Pulse Resp BP Pulse Ox O2 Del Method 97.4 F 85 17 103/70 93 L Room Air 09/20/25 07:47 09/20/25 07:47 09/20/25 07:47 09/20/25 07:47 09/20/25 07:47 09/20/25 07:47 Narrative Exam GENERAL: AOx3, no acute distress, disheveled, unable to recall recent events, not oriented to reason of admission, malodorous HEENT: mucous membranes moist, bilateral sclera anicteric CARDIOVASCULAR: regular rate and rhythm, S1/S2 present, no murmurs appreciated PULMONARY: clear to auscultation bilaterally, no rales/rhonchi/wheezes ABDOMINAL: soft, non-tender, non-distended, no rebound/guarding, bowel sounds present EXTREMITIES: no peripheral edema SKIN: warm and dry NEURO: CN II-XII grossly intact, no focal deficits, alert, following commands Objective Labs 09/15/25 05:11 09/15/25 05:11 Labs: Laboratory Results - last 24 hr 09/13/25 09:26 Thiamine (Vit B1) Kenneth >1200 H Quality Measures Quality Measures none Advance care planning discussed with:: patient Assessment & Plan Assessment Current Active Medications: Generic Name Dose Route Start Last Admin Trade Name Freq PRN Reason Stop Dose Admin Acetaminophen 650 mg 10/17/25 03:17 Acetaminophen 325 Mg Tablet PO 10/10/25 03:16 Q6H PRN Fever >101.5 Al Hydrox/Mg Hydrox/Simethicone 30 ml 09/10/25 03:17 Mg Hyd/Al Hyd/Carolee (Maalox Reg) Susp 30 Ml Udc PO 10/10/25 03:16 Q6H PRN Indigestion Bisacodyl 10 mg 09/10/25 03:17 Bisacodyl 5 Mg Tabec PO 10/10/25 03:16 QDAY PRN CONSTIPATION Protocol Donepezil HCl 5 mg 09/13/25 21:00 09/19/25 20:09 Donepezil Hcl 5 Mg Tablet PO 10/13/25 20:59 5 mg HS STEPHENIE Administration Heparin Sodium (Porcine) 5,000 unit 09/11/25 09:00 09/20/25 09:55 Heparin Sod Inj 5000 Unit/Ml Vial SC 09/25/25 08:59 5,000 unit Q12HR STEPHENIE Administration Nicotine 21 mg 09/19/25 16:15 09/20/25 09:55 Nicotine Patch 21 Mg/24 Hr Patch.Td24 TOP 10/19/25 16:14 21 mg QDAY STEPHENIE Administration Thiamine HCl 100 mg 09/18/25 10:45 09/20/25 09:55 Thiamine 100 Mg Tablet PO 10/18/25 10:44 100 mg QDAY STEPHENIE Administration Plan Mc Rodriguez 65M with pmhx significant for alcohol abuse and arthritis who presented to [facility] 09/10 for back pain, foot pain and confusion, admitted for acute vs chronic encephalopathy, possible Wernicke vs Korsakoff. #Acute vs chronic encephalopathy #Alcohol use with possible Wernicke encephalopathy or Korsakoff syndrome Reports year-long history of alcoholism which has worsened over the past few years, ports drinks 750 mL of hard liquor every day. Urine alcohol <3.0. CIWA stable. Continues to be AOx3, however still slightly confused. EEG negative. MRI negative for acute processes, no acute infarct, moderate chronic microvascular white matter change. B12 wnl, TSH elevated but T4 wnl, syphillis and HIV neg, trig 104, cho 174, LDL 110, HDL 43. Plan: - PO thiamine 100 mg QD and folic acid 1 mg BID - Donepezil 5 mg qhs, per neurology anticipate to increase dose after a month then adding memantine for preventing progression of memory loss - Neurology consulted, recs appreciated: Needs termite control servicer placement for severe cognitive impairment. - Social service referral, counselled extensively regarding alcohol cessation - Pending termite control servicer placement - Per neurology and primary team, patient does not have capacity to make his own decision due to cognitive impairment #Back pain, resolved #Elevated CK, c/f early rhabdomyolysis, resolved Reports back pain is chronic and painful on admission, but currently tolerable. Denies urinary or fecal incontinence. CK 1000->900->[address] spine CT showed diffuse moderate to advanced lumbar degenerative disc disease, most severe at L2-L3, L3-L4; L5-S1 5 mm central lumbar disc bulge contiguous with the right and left S1 nerve roots, L4-L5 4 mm central lumbar bulge disc. Thoracic spine CT also showed mild to moderate diffuse thoracic degenerative disc disease. Plan: - CTM for pain #Foot pain, resolved #New LLE blister, resolved Does not know when or how blisters originated. Denies foot pain currently. Plan: - Wound care following #Homelessness - Referral to social studies teacher Hospital management: Lines: PIV Diet: Regular Bowel: not indicated GI prophylaxis: not indicated DVT prophylaxis: heparin q12 Disposition: med surg, pending SNF CODE STATUS: FULL CODE Plan of care discussed with attending Dr. Brown and PGY-2 Dr. Riley. Antonia Callaway DO Internal Medicine PGY-1 Attending Provider Attestation/Addendum Marti Brand DO, attest that I was physically present for the benavidez portions of the service and evaluated the patient with the resident and I reviewed and discussed the case with the resident and agree with the resident's findings and plans of care as documented above Patient seen and evaluated this AM. He states he is feeling well and that he is ready to get on the road tomorrow to go to either [place] or [place]. He has no acute complaints, Pending placement at this time.
--- NOTE | 2025-09-20 15:33 | PC.SS ---
follow up note: SS and BLOCK CHOPPER HAND met with patient to determine mentation. BLOCK CHOPPER HAND asked patient if he knew where he was at. Patient responded by looking at the board and verbalizing he's at [place]. When asked if he knew his name and birthday, patient was able to verbalize correctly. Patient was able to verbalize his prior place of living. SS and BLOCK CHOPPER HAND explained to patient we are still actively looking for placement. Patient then responded by asking if he can check out of this hotel tomorrow later than 10a.m. BLOCK CHOPPER HAND proceeded to inform patient we will be back to see him in the morning before 10a.m. BLOCK CHOPPER HAND asked patient if he wanted us to bring him new clothing to sleep in and patient responded that he did not. He stated he prefers to sleep in the nude. SS spoke to patient's daughter who confirmed her uncle does not want patient to d/c to his home. There are no other family members who can take patient in. Patient may be more appropriate at a board and care. SS will continue to seek placement.
[2025-09-20] MEDS: DONEPEZIL HCL 5 MG TABLET PO (20:10)
[2025-09-20 22:00] VITALS: BP 122/81; PULSE 75; RESP 18; TEMP 36.5; O2SAT 94
[2025-09-21 05:55] VITALS: BP 116/79; PULSE 62; RESP 18; TEMP 36.6; O2SAT 96
[2025-09-21 07:57] VITALS: BP 145/62; PULSE 80; RESP 18; TEMP 36.3; O2SAT 96
[2025-09-21] MEDS: NICOTINE PATCH 21 MG/24 HR PATCH.TD24 TOP (08:49)
[2025-09-21] MEDS: THIAMINE 100 MG TABLET PO (08:50)
[2025-09-21] MEDS: HEPARIN SOD INJ 5000 UNIT/ML VIAL SC ×2 (08:50→22:55)
--- NOTE | 2025-09-21 13:38 | PD.RESPRO ---
Documentation for date of: 09/21/25 Subjective Subjective Interval history: Patient was seen and examined at bedside this morning. No acute overnight events. Still pending placement for patient, we will get labs for tomorrow a.m. Otherwise no other complaints at this time. Patient still somewhat confused and provides various versions of stories about his living situation. Exam Vital Signs Temp Pulse Resp BP Pulse Ox O2 Del Method 97.3 F 80 18 145/62 H 96 Room Air 09/21/25 07:57 09/21/25 07:57 09/21/25 07:57 09/21/25 07:57 09/21/25 07:57 09/21/25 07:57 Narrative Exam General: A/O x2 (not to place), no acute distress, disheveled Eyes: PERRL, EOMI. Anicteric, vision grossly intact. Ears: No ear pain, no ear discharge, Hearing grossly intact. Nose: No nasal discharge. Mouth/Throat: Moist mucous membranes, no redness, no lesions. Neck: Neck supple, non-tender, no cervical lymphadenopathy. Lungs: Clear TAMMY to auscultation and percussion, No accessory muscle use. Cardio: Normal S1/S2, regular rhythm, no murmurs, no JVD or carotid bruits. Abdomen: Soft, non-tender, no palpable masses, peristalsis present, no guarding or rebound. Extremities: Symmetrical, no significant deformities, no peripheral edema , non-tender, peripheral pulses presents. Skin: No rashes, no lesions, warm to touch. Neuro: No focal neurological deficits. motor and sensory intact Psych: Cooperative, appropriate mood and effect. Objective Labs 09/15/25 05:11 09/15/25 05:11 Quality Measures Quality Measures none Advance care planning discussed with:: patient Assessment & Plan Assessment Current Active Medications: Generic Name Dose Route Start Last Admin Trade Name Freq PRN Reason Stop Dose Admin Acetaminophen 650 mg 09/10/25 03:17 Acetaminophen 325 Mg Tablet PO 10/10/25 03:16 Q6H PRN Fever >101.5 Al Hydrox/Mg Hydrox/Simethicone 30 ml 09/10/25 03:17 Mg Hyd/Al Hyd/Carolee (Maalox Reg) Susp 30 Ml Udc PO 10/10/25 03:16 Q6H PRN Indigestion Bisacodyl 10 mg 09/10/25 03:17 Bisacodyl 5 Mg Tabec PO 10/10/25 03:16 QDAY PRN CONSTIPATION Protocol Donepezil HCl 5 mg 09/13/25 21:00 09/20/25 20:10 Donepezil Hcl 5 Mg Tablet PO 10/13/25 20:59 5 mg HS STEPHENIE Administration Heparin Sodium (Porcine) 5,000 unit 09/11/25 09:00 09/21/25 08:50 Heparin Sod Inj 5000 Unit/Ml Vial SC 09/25/25 08:59 5,000 unit Q12HR STEPHENIE Administration Nicotine 21 mg 09/19/25 16:15 09/21/25 08:49 Nicotine Patch 21 Mg/24 Hr Patch.Td24 TOP 10/19/25 16:14 21 mg QDAY STEPHENIE Administration Thiamine HCl 100 mg 09/18/25 10:45 09/21/25 08:50 Thiamine 100 Mg Tablet PO 10/18/25 10:44 100 mg QDAY STEPHENIE Administration Plan Mc Rodriguez 65M with pmhx significant for alcohol abuse and arthritis who presented to [facility] 09/10 for back pain, foot pain and confusion, admitted for acute vs chronic encephalopathy, possible Wernicke vs Korsakoff. #Acute vs chronic encephalopathy #Alcohol use with possible Wernicke encephalopathy or Korsakoff syndrome Reports year-long history of alcoholism which has worsened over the past few years, ports drinks 750 mL of hard liquor every day. Urine alcohol <3.0. CIWA stable. Continues to be AOx3, however still slightly confused. EEG negative. MRI negative for acute processes, no acute infarct, moderate chronic microvascular white matter change. B12 wnl, TSH elevated but T4 wnl, syphillis and HIV neg, trig 104, cho 174, LDL 110, HDL 43. Plan: - PO thiamine 100 mg QD and folic acid 1 mg BID - Donepezil 5 mg qhs, per neurology anticipate to increase dose after a month then adding memantine for preventing progression of memory loss - Neurology consulted, recs appreciated: Needs termite control service representative placement for severe cognitive impairment. - Social service referral, counselled extensively regarding alcohol cessation - Pending termite control service representative placement - Per neurology and primary team, patient does not have capacity to make his own decision due to cognitive impairment #Back pain, resolved #Elevated CK, c/f early rhabdomyolysis, resolved Reports back pain is chronic and painful on admission, but currently tolerable. Denies urinary or fecal incontinence. CK 1000->900->[address] following fluids. Lumbar spine CT showed diffuse moderate to advanced lumbar degenerative disc disease, most severe at L2-L3, L3-L4; L5-S1 5 mm central lumbar disc bulge contiguous with the right and left S1 nerve roots, L4-L5 4 mm central lumbar bulge disc. Thoracic spine CT also showed mild to moderate diffuse thoracic degenerative disc disease. Plan: - CTM for pain #Foot pain, resolved #New LLE blister, resolved Does not know when or how blisters originated. Denies foot pain currently. Plan: - Wound care following #Homelessness - Referral to social service worker Hospital management: Lines: PIV Diet: Regular Bowel: not indicated GI prophylaxis: not indicated DVT prophylaxis: heparin q12 Disposition: med surg, pending SNF CODE STATUS: FULL CODE Case disclosed with Attending Dr. Kevin Peraza PGY2 Disclaimer: Even though this this note was dictated by speech recognition and even though it was carefully revised there may still be minor errors in manager steel due to voice recognition software. Attending Provider Attestation/Addendum Sunday, Marti Brown DO, attest that I was physically present for the benavidez portions of the service and evaluated the patient with the resident and I reviewed and discussed the case with the resident and agree with the resident's findings and plans of care as documented above Patient seen and evaluated this AM. No acute events overnight. Patient thinks that he is at a hotel and is very grateful that he can stay past checkout time. Discussed with manager social media and may be able to find board and care for patient locally. Patient remains stable. Pending safe placement.
--- NOTE | 2025-09-21 15:54 | PC.SS ---
update: SS and SUBSEA ENGINEER met with patient to determine how much money he recieves monthly and how much money is in his current bank account. Patient sanabria with [facility] and he has a total of $3.00 in his account. Patient receives $2,999.00 monthly from [employer]. Patient will receive funds first few days of the month deposited. Patient had previously prepaid for hotels monthly. Patient currently has his bank card. SS explained that we found a place at a board and care. SS spoke to Simi who owns [employer]. She has a bed room available for $900.00 monthly. [employer] is located in [place]. Simi states they have a dry house operator that lives at the home. They have one vehicle for outings. Meals are prepared. Room will be available next Saturday. SS will update daughter, Usha. Patient will eventually need a financial payee.
[2025-09-21 22:00] VITALS: BP 131/77; PULSE 68; RESP 18; TEMP 36.3; O2SAT 100
[2025-09-21] MEDS: DONEPEZIL HCL 5 MG TABLET PO (22:55)
--- NOTE | 2025-09-22 03:26 | PC.NURSE ---
[employer] computer downtime from 02:00 to 02:51 am.
--- NOTE | 2025-09-22 04:39 | PC.NURSE ---
lab drawn. Pt confused- has a shopping lists and thinks he is in [facility] and will be here for 3 months that is why he has the shopping lists since he will be here for 3 months, he is getting ready of what he needs.
[2025-09-22 05:43] LABS: Basophils # (Auto) 0.0 Thou/mm3 (0.0-0.2); Basophils % (Auto) 0 % (0-2.5); Eosinophils # (Auto) 0.1 Thou/mm3 (0.0-0.5); Eosinophils % (Auto) 2 % (0-10); Hematocrit 37.7 % (41.0-53.0); Hemoglobin 12.8 g/dL (13.5-16.0); Immature Granulocytes Auto 0.01 Thou/mm3 (0.00-0.00); Lymphocytes # (Auto) 1.9 Thou/mm3 (1.0-4.8); Lymphocytes % (Auto) 32 % (10-50); Mean Corpuscular HGB Conc 34.0 g/dl (31.0-37.0); Mean Corpuscular Hemoglobin 34.6 pg (25.0-35.0); Mean Corpuscular Volume 102 fL (80-100); Monocytes # (Auto) 0.6 Thou/mm3 (0.0-0.8); Monocytes % (Auto) 10 % (0-12); Neutrophils # (Auto) 3.2 Thou/mm3 (1.8-7.7); Neutrophils % (Auto) 55 % (37-80); Nucleated Red Blood Cell # 0.00 Thou/mm3 (0.00-0.00); Nucleated Red Blood Cell % 0 /100 WBC (0); Platelet Count 198 Thou/mm3 (140-440); RDW Standard Deviation 51.1 fL (35.1-43.9); Red Blood Count 3.70 Miln/mm3 (4.50-5.90); White Blood Count 5.8 Thou/mm3 (3.8-10.6)
[2025-09-22 06:00] VITALS: BP 120/79; PULSE 65; RESP 18; TEMP 36.6; O2SAT 99
[2025-09-22 06:36] LABS: Alanine Aminotransferase 9 U/L (10-49); Albumin, Serum 4.0 gm/dL (3.4-4.8); Albumin/Globulin Ratio 1.9 (1.2-2.2); Alkaline Phosphatase 63 U/L (46-116); Anion Gap 11 (7-16); Aspartate Amino Transferase 16 U/L (0-34); BUN/Creatinine Ratio 9 Ratio (12-20); Bilirubin,Total 0.7 mg/dL (0.3-1.2); Blood Urea Nitrogen 7 mg/dL (9-23); Calcium 9.2 mg/dL (8.3-10.6); Calcium (Corrected) 9.2 mg/dL (8.5-10.1); Carbon Dioxide 26.2 mMol/L (20.0-31.0); Chloride 106 mMol/L (98-107); Creatinine (Component) 0.8 mg/dL (0.6-1.3); Estimated Creatinine Clearance 98.3 mL/min (>60); Globulin 2.1 gm/dL (2.3-3.5); Glucose 82 mg/dL (74-106); Osmolality,Calculated 281 (275-295); Potassium 3.9 mMol/L (3.4-5.1); Sodium 143 mMol/L (136-145); Total Protein 6.1 gm/dL (5.7-8.2); eGFR > 60 See Note
[2025-09-22 08:00] VITALS: BP 96/75; PULSE 70; RESP 18; TEMP 36.3; O2SAT 96
[2025-09-22] MEDS: NICOTINE PATCH 21 MG/24 HR PATCH.TD24 TOP (08:44)
[2025-09-22] MEDS: THIAMINE 100 MG TABLET PO (08:44)
[2025-09-22] MEDS: HEPARIN SOD INJ 5000 UNIT/ML VIAL SC ×2 (08:45→20:21)
--- NOTE | 2025-09-22 10:40 | PC.NURSE ---
Dr. Callaway is aware of patient not having a IV site.
--- NOTE | 2025-09-22 13:31 | ESPR_ITS ---
<Statement entered by Justin Peraza MD - 09/22/25 13:39> I have reviewed the note and agree with the resident's assessment & plan with exceptions as below. I have personally reviewed labs, imaging, home meds/prior records, examined the patient, formulated and discussed management plan with my attending Patient was seen and examined at bedside this morning. No acute overnight events. Patient still pending long-term placement into these labs were fairly unremarkable. Patient is a little bit more frustrated today and seems more restless as he seems to be having cravings for smoking, but is currently on nicotine patch. Will continue to monitor closely. Justin Peraza PGY2 Disclaimer: Even though this this note was dictated by speech recognition and even though it was carefully revised there may still be minor errors in stator plate washer due to voice recognition software. Documentation for date of: 09/22/25 Subjective Subjective Interval history: No acute overnights. Patient seen and examined at bedside. Patient reports well today, no new complaints. Inquired to extend hotel stay and to place charges on his credit card tab. Labs and vitals reviewed. Hemoglobin stable at 12.8. Continue p.o. thiamine, folic acid and donepezil. Pending long-term SNF placement, likely next Saturday per social work. Exam Vital Signs Temp Pulse Resp BP Pulse Ox O2 Del Method 97.4 F 70 18 96/75 96 Room Air 09/22/25 08:00 09/22/25 08:00 09/22/25 08:00 09/22/25 08:00 09/22/25 08:00 09/22/25 08:00 Narrative Exam GENERAL: AOx2 to person and time, no acute distress, disheveled, unable to recall recent events, not oriented to reason of admission, malodorous HEENT: mucous membranes moist, bilateral sclera anicteric CARDIOVASCULAR: regular rate and rhythm, S1/S2 present, no murmurs appreciated PULMONARY: clear to auscultation bilaterally, no rales/rhonchi/wheezes ABDOMINAL: soft, non-tender, non-distended, no rebound/guarding, bowel sounds present EXTREMITIES: no peripheral edema SKIN: warm and dry NEURO: CN II-XII grossly intact, no focal deficits, alert, following commands Objective Labs 09/22/25 04:25 09/22/25 04:25 Labs: Laboratory Results - last 24 hr 09/22/25 04:25 WBC 5.8 RBC 3.70 L Hgb 12.8 L Hct 37.7 L MCV 102 H MCH 34.6 MCHC 34.0 RDW Std Deviation 51.1 H Plt Count 198 Neut % (Auto) 55 Lymph % (Auto) 32 [place] % (Auto) 10 Eos % (Auto) 2 Baso % (Auto) 0 Neut # (Auto) 3.2 Lymph # (Auto) 1.9 [place] # (Auto) 0.6 Eos # (Auto) 0.1 Baso # (Auto) 0.0 Immature Gran # (Auto) 0.01 H Absolute Nucleated RBC 0.00 Immature Gran % 0 Nucleated RBC % 0 Sodium 143 Potassium 3.9 Chloride 106 Carbon Dioxide 26.2 Anion Gap 11 BUN 7 L Creatinine 0.8 Estim Creat Clear Calc 98.3 eGFR > 60 BUN/Creatinine Ratio 9 L Glucose 82 Calculated Osmolality 281 Calcium 9.2 Corrected Calcium 9.2 Total Bilirubin 0.7 AST 16 ALT 9 L Alkaline Phosphatase 63 Total Protein 6.1 Albumin 4.0 Globulin 2.1 L Albumin/Globulin Ratio 1.9 Quality Measures Quality Measures none Advance care planning discussed with:: patient Assessment & Plan Assessment Current Active Medications: Generic Name Dose Route Start Last Admin Trade Name Freq PRN Reason Stop Dose Admin Acetaminophen 650 mg 09/10/25 03:17 Acetaminophen 325 Mg Tablet PO 10/10/25 03:16 Q6H PRN Fever >101.5 Al Hydrox/Mg Hydrox/Simethicone 30 ml 09/10/25 03:17 Mg Hyd/Al Hyd/Carolee (Maalox Reg) Susp 30 Ml Udc PO 10/10/25 03:16 Q6H PRN Indigestion Bisacodyl 10 mg 09/10/25 03:17 Bisacodyl 5 Mg Tabec PO 10/10/25 03:16 QDAY PRN CONSTIPATION Protocol Donepezil HCl 5 mg 09/13/25 21:00 09/21/25 22:55 Donepezil Hcl 5 Mg Tablet PO 10/13/25 20:59 5 mg HS STEPHENIE Administration Heparin Sodium (Porcine) 5,000 unit 09/11/25 09:00 09/22/25 08:45 Heparin Sod Inj 5000 Unit/Ml Vial SC 09/25/25 08:59 5,000 unit Q12HR STEPHENIE Administration Nicotine 21 mg 09/19/25 16:15 09/22/25 08:44 Nicotine Patch 21 Mg/24 Hr Patch.Td24 TOP 10/19/25 16:14 21 mg QDAY STEPHENIE Administration Thiamine HCl 100 mg 09/18/25 10:45 09/22/25 08:44 Thiamine 100 Mg Tablet PO 10/18/25 10:44 100 mg QDAY STEPHENIE Administration Plan Mc Rodriguez 65M with pmhx significant for alcohol abuse and arthritis who presented to [facility] 09/10 for back pain, foot pain and confusion, admitted for acute vs chronic encephalopathy, possible Wernicke vs Korsakoff. #Acute vs chronic encephalopathy #Alcohol use with possible Wernicke encephalopathy or Korsakoff syndrome Reports year-long history of alcoholism which has worsened over the past few years, ports drinks 750 mL of hard liquor every day. Urine alcohol <3.0. CIWA stable. Continues to be AOx3, however still slightly confused. EEG negative. MRI negative for acute processes, no acute infarct, moderate chronic microvascular white matter change. B12 wnl, TSH elevated but T4 wnl, syphillis and HIV neg, trig 104, cho 174, LDL 110, HDL 43. Tiamine >1200 Plan: - Continue PO thiamine 100 mg QD and folic acid 1 mg BID - Donepezil 5 mg qhs, per neurology anticipate to increase dose after a month then adding memantine for preventing progression of memory loss - Neurology consulted, recs appreciated: Needs assistant terminal manager placement for severe cognitive impairment. - Social service referral, counselled extensively regarding alcohol cessation - Pending skilled nursing placement - Per neurology and primary team, patient does not have capacity to make his own decision due to cognitive impairment #Back pain, resolved #Elevated CK, c/f early rhabdomyolysis, resolved Reports back pain is chronic and painful on admission, but currently tolerable. Denies urinary or fecal incontinence. CK 1000->900->[address] following fluids. Lumbar spine CT showed diffuse moderate to advanced lumbar degenerative disc disease, most severe at L2-L3, L3-L4; L5-S1 5 mm central lumbar disc bulge contiguous with the right and left S1 nerve roots, L4-L5 4 mm central lumbar bulge disc. Thoracic spine CT also showed mild to moderate diffuse thoracic degenerative disc disease. Plan: - CTM for pain #Foot pain, resolved #New LLE blister, resolved Does not know when or how blisters originated. Denies foot pain currently. Plan: - CTM #Homelessness - Referral to child welfare social worker Hospital management: Lines: PIV Diet: Regular Bowel: not indicated GI prophylaxis: not indicated DVT prophylaxis: heparin q12 Disposition: med surg, pending SNF CODE STATUS: FULL CODE Plan of care discussed with attending Dr. Brown and PGY-2 Dr. Riley. Antonia Callaway DO Internal Medicine PGY-1 Attending Provider Attestation/Addendum I, Marti Brown DO, attest that I was physically present for the benavidez portions of the service and evaluated the patient with the resident and I reviewed and discussed the case with the resident and agree with the resident's findings and plans of care as documented above Patient seen and evaluated this AM. He is more restless today stating that he wants to leave and smoke a cigarette. Patient states he needs to leave as soon as possible. Mental status remains unchanged. Pending placement. Labs remain unremarkable.
--- NOTE | 2025-09-22 13:36 | PC.SS ---
follow up note: SS spoke to patient's daughter, Usha with updates on d/c plan. Usha states she is at social security office working on adding herself as financial payee to help with finances to pay for room/board. Usha is also working on paperwork to be the conservator of patient. Board and care may be temporary as daughter is actively looking for intermediate frame tender placement out of state closer to her. Conservatorship paperwork will need to be signed by physician.
[2025-09-22 14:00] VITALS: BP 110/70; PULSE 65; RESP 18; TEMP 36.3; O2SAT 98
[2025-09-22 15:36] VITALS: BMI 24.1
[2025-09-22] MEDS: DONEPEZIL HCL 5 MG TABLET PO (20:21)
[2025-09-22 22:00] VITALS: BP 137/84; PULSE 61; RESP 18; TEMP 36.2; O2SAT 99
--- NOTE | 2025-09-22 22:11 | ESPR_ITS ---
Documentation for date of: 09/22/25 Subjective Subjective Interval history: Mr. Rodriguez is a 65-year- male with chronic drug and alcohol use and osteoarthritis presented with back pain, foot pain, confusion. Patient is homeless. Patient is confused, disoriented, and not a good historian. No history of recent trauma or falls. Workup in the ER: Labs showed mild anemia and elevated CK. Neurology was consulted to evaluate for altered mental status. Patient was seen in [facility] at the bedside he was eating dinner, no new symptoms or complaints today. Continues to have intermittent confusion and progressive memory loss. Exam - Neurology Vital Signs Temp Pulse Resp BP Pulse Ox O2 Del Method 97.1 F 61 18 137/84 H 99 Room Air 09/22/25 22:00 09/22/25 22:00 09/22/25 22:00 09/22/25 22:00 09/22/25 22:00 09/22/25 22:00 Objective Labs 09/22/25 04:25 09/22/25 04:25 Labs: Laboratory Results - last 24 hr 09/22/25 04:25 WBC 5.8 RBC 3.70 L Hgb 12.8 L Hct 37.7 L MCV 102 H MCH 34.6 MCHC 34.0 RDW Std Deviation 51.1 H Plt Count 198 Neut % (Auto) 55 Lymph % (Auto) 32 [place] % (Auto) 10 Eos % (Auto) 2 Baso % (Auto) 0 Neut # (Auto) 3.2 Lymph # (Auto) 1.9 [place] # (Auto) 0.6 Eos # (Auto) 0.1 Baso # (Auto) 0.0 Immature Gran # (Auto) 0.01 H Absolute Nucleated RBC 0.00 Immature Gran % 0 Nucleated RBC % 0 Sodium 143 Potassium 3.9 Chloride 106 Carbon Dioxide 26.2 Anion Gap 11 BUN 7 L Creatinine 0.8 Estim Creat Clear Calc 98.3 eGFR > 60 BUN/Creatinine Ratio 9 L Glucose 82 Calculated Osmolality 281 Calcium 9.2 Corrected Calcium 9.2 Total Bilirubin 0.7 AST 16 ALT 9 L Alkaline Phosphatase 63 Total Protein 6.1 Albumin 4.0 Globulin 2.1 L Albumin/Globulin Ratio 1.9 Assessment & Plan Assessment and plan (1) Altered mental status: Status: Resolved Assessment and plan: Consistent with dementia increased Aricept to 10 mg at night and add memantine for preventing progression of memory loss. He needs long-term placement for safety, cannot drive. (2) Rhabdomyolysis: Status: Resolved
[2025-09-23 05:45] VITALS: BP 109/60; PULSE 64; RESP 16; TEMP 36.1; O2SAT 97
[2025-09-23] MEDS: THIAMINE 100 MG TABLET PO (09:42)
[2025-09-23] MEDS: MEMANTINE HCL 5 MG TABLET PO ×2 (09:42→21:33)
[2025-09-23] MEDS: NICOTINE PATCH 21 MG/24 HR PATCH.TD24 TOP (09:42)
[2025-09-23] MEDS: HEPARIN SOD INJ 5000 UNIT/ML VIAL SC ×2 (09:43→21:34)
[2025-09-23 14:00] VITALS: BP 113/62; PULSE 69; RESP 16; TEMP 37.3; O2SAT 96
--- NOTE | 2025-09-23 14:08 | PD.RESPRO ---
Documentation for date of: 09/23/25 Subjective Subjective Interval history: Patient was seen and examined at bedside this morning. No acute overnight events. Patient still pending long-term placement. Reports no other complaint at this time. Started on memantine 5 mg BID and increased donepezil to 10mg by neuro. Exam Vital Signs Temp Pulse Resp BP Pulse Ox O2 Del Method 97.0 F 64 16 109/60 97 Room Air 09/23/25 05:45 09/23/25 05:45 09/23/25 05:45 09/23/25 05:45 09/23/25 05:45 09/23/25 05:45 Narrative Exam General: A/O x2 (not to place), no acute distress, disheveled Eyes: PERRL, EOMI. Anicteric, vision grossly intact. Ears: No ear pain, no ear discharge, Hearing grossly intact. Nose: No nasal discharge. Mouth/Throat: Moist mucous membranes, no redness, no lesions. Neck: Neck supple, non-tender, no cervical lymphadenopathy. Lungs: Clear TAMMY to auscultation and percussion, No accessory muscle use. Cardio: Normal S1/S2, regular rhythm, no murmurs, no JVD or carotid bruits. Abdomen: Soft, non-tender, no palpable masses, peristalsis present, no guarding or rebound. Extremities: Symmetrical, no significant deformities, no peripheral edema , non-tender, peripheral pulses presents. Skin: No rashes, no lesions, warm to touch. Neuro: No focal neurological deficits. motor and sensory intact Psych: Cooperative, appropriate mood and effect. Objective Labs 09/22/25 04:25 09/22/25 04:25 Quality Measures Quality Measures none Advance care planning discussed with:: patient Assessment & Plan Assessment Current Active Medications: Generic Name Dose Route Start Last Admin Trade Name Freq PRN Reason Stop Dose Admin Acetaminophen 650 mg 09/10/25 03:17 Acetaminophen 325 Mg Tablet PO 10/10/25 03:16 Q6H PRN Fever >101.5 Al Hydrox/Mg Hydrox/Simethicone 30 ml 09/10/25 03:17 Mg Hyd/Al Hyd/Carolee (Maalox Reg) Susp 30 Ml Udc PO 10/10/25 03:16 Q6H PRN Indigestion Bisacodyl 10 mg 09/10/25 03:17 Bisacodyl 5 Mg Tabec PO 10/10/25 03:16 QDAY PRN CONSTIPATION Protocol Donepezil HCl 10 mg 09/23/25 21:00 Donepezil Hcl 5 Mg Tablet PO 10/23/25 20:59 HS STEPHENIE Heparin Sodium (Porcine) 5,000 unit 09/11/25 09:00 09/23/25 09:43 Heparin Sod Inj 5000 Unit/Ml Vial SC 09/25/25 08:59 5,000 unit Q12HR STEPHENIE Administration Memantine 5 mg 09/23/25 09:00 09/23/25 09:42 Memantine Hcl 5 Mg Tablet PO 10/23/25 08:59 5 mg BID STEPHENIE Administration Nicotine 21 mg 09/19/25 16:15 09/23/25 09:42 Nicotine Patch 21 Mg/24 Hr Patch.Td24 TOP 10/19/25 16:14 21 mg QDAY STEPHENIE Administration Thiamine HCl 100 mg 09/18/25 10:45 09/23/25 09:42 Thiamine 100 Mg Tablet PO 10/18/25 10:44 100 mg QDAY STEPHENIE Administration Plan Mc Rodriguez 65M with pmhx significant for alcohol abuse and arthritis who presented to [facility] 09/10 for back pain, foot pain and confusion, admitted for acute vs chronic encephalopathy, possible Wernicke vs Korsakoff. #Acute vs chronic encephalopathy #Alcohol use with possible Wernicke encephalopathy or Korsakoff syndrome Reports year-long history of alcoholism which has worsened over the past few years, ports drinks 750 mL of hard liquor every day. Urine alcohol <3.0. CIWA stable. Continues to be AOx3, however still slightly confused. EEG negative. MRI negative for acute processes, no acute infarct, moderate chronic microvascular white matter change. B12 wnl, TSH elevated but T4 wnl, syphillis and HIV neg, trig 104, cho 174, LDL 110, HDL 43. Plan: - PO thiamine 100 mg QD and folic acid 1 mg BID - Donepezil 10 mg qhs, and added memantine 5mg BID - Neurology consulted, recs appreciated: Needs joint terminal attack controller placement for severe cognitive impairment. - Social service referral, counselled extensively regarding alcohol cessation - Pending joint terminal attack controller placement - Per neurology and primary team, patient does not have capacity to make his own decision due to cognitive impairment #Back pain, resolved #Elevated CK, c/f early rhabdomyolysis, resolved Reports back pain is chronic and painful on admission, but currently tolerable. Denies urinary or fecal incontinence. CK 1000->900->360 following fluids. Lumbar spine CT showed diffuse moderate to advanced lumbar degenerative disc disease, most severe at L2-L3, L3-L4; L5-S1 5 mm central lumbar disc bulge contiguous with the right and left S1 nerve roots, L4-L5 4 mm central lumbar bulge disc. Thoracic spine CT also showed mild to moderate diffuse thoracic degenerative disc disease. Plan: - CTM for pain #Foot pain, resolved #New LLE blister, resolved Does not know when or how blisters originated. Denies foot pain currently. Plan: - Wound care following #Homelessness - Referral to older adult social work specialist Hospital management: Lines: PIV Diet: Regular Bowel: not indicated GI prophylaxis: not indicated DVT prophylaxis: heparin q12 Disposition: med surg, pending SNF CODE STATUS: FULL CODE Case disclosed with Attending Dr. Kevin Peraza PGY2 Disclaimer: Even though this this note was dictated by speech recognition and even though it was carefully revised there may still be minor errors in business services clerk due to voice recognition software. Attending Provider Attestation/Addendum I, Marti Brown DO, attest that I was physically present for the benavidez portions of the service and evaluated the patient with the resident and I reviewed and discussed the case with the resident and agree with the resident's findings and plans of care as documented above Patient seen and eval this a.m. He states that he is ready to check out on Saturday morning. he states that he will drive to [place] and find a place there. Reminded patient that that older adult social work specialist is looking for boarding care at this time. Patient is not able to make sound decisions for himself. He is otherwise neurologically intact but has no acute complaints at this time. Patient continues to believe that he is in a hotel. Aricept was increased from 5 mg to 10 mg p.o. nightly.
[2025-09-23] MEDS: DONEPEZIL HCL 5 MG TABLET 10 MG PO (21:33)
[2025-09-23 21:40] VITALS: BP 100/75; PULSE 76; RESP 18; TEMP 36.7; O2SAT 98
--- NOTE | 2025-09-23 22:21 | PD.NEUROPROG ---
Documentation for date of: 09/23/25 Subjective Subjective Interval history: Mr. Rodriguez is a 65-year- male with chronic drug and alcohol use and osteoarthritis presented with back pain, foot pain, confusion. Patient is homeless. Patient is confused, disoriented, and not a good historian. No history of recent trauma or falls. Workup in the ER: Labs showed mild anemia and elevated CK. Neurology was consulted to evaluate for altered mental status. Patient was seen in [facility] at the bedside he was eating dinner, no new symptoms or complaints today. Continues to have intermittent confusion and progressive memory loss. Exam - Neurology Vital Signs Temp Pulse Resp BP Pulse Ox O2 Del Method 98.1 F 76 18 100/75 98 Room Air 09/23/25 21:40 09/23/25 21:40 09/23/25 21:40 09/23/25 21:40 09/23/25 21:40 09/23/25 21:40 Narrative Exam GENERAL APPEARANCE: Well hydrated, well-nourished in no acute distress. HEENT: Normocephalic, atraumatic, extraocular movements intact. Pupils: Equal reacting to light and accommodation NECK: Supple, no JVD or bruits. CARDIOVASULAR: Heart: S1, S2 heard, regular without S3-S4 or murmur no rubs or gallops. LUNGS/CHEST: Clear to auscultation bilaterally. No rails, rhonchi, or wheezing. Normal inspection. ABDOMEN: Soft, nontender, with normal bowel sounds. No pulsatile masses. No rebound, rigidity, or guarding. Normal inspection and palpation. EXTREMITIES: Normal inspection and palpation. No edema, clubbing or cyanosis. SKIN: Warm and dry without rashes. Normal inspection. MUSCULOSKELETAL: No cervical, thoracic, lumbar or midline bony tenderness. Normal inspection. NEURO: Alert, awake and oriented x2. Cranial nerves: II through XII grossly intact. Speech and language: Normal with no dysarthria or dysphasia. Motor system: Tone and bulk: Normal: Strength: 5 out of 5 in all 4 extremities; No pronator drift noted. Deep tendon reflexes: 2+ bilaterally symmetrical. Plantar reflex: Downgoing bilaterally. Sensory system: Intact to all modalities of sensation bilaterally. Coordination: Intact to mocfji-[id number]-[id number] and stjr-tvmq-hcnu test bilaterally. No ataxia, no dysmetria, or dysdiadochokinesia noted. No intention tremors noted. Gait: Normal. Toe, heel, tandem walk all are normal. Romberg: Negative. No signs of meningeal irritation noted. PSYCHIATRIC: Normal mood and affect. Objective Labs 09/22/25 04:25 09/22/25 04:25 Assessment & Plan Assessment and plan (1) Altered mental status: Status: Resolved Assessment and plan: Consistent with dementia Continue with Aricept 10 mg at night and memantine 5 mg bid for preventing progression of memory loss. He needs long-term placement for safety, cannot drive. (2) Rhabdomyolysis: Status: Resolved
[2025-09-24 06:00] VITALS: BP 116/72; PULSE 70; RESP 18; TEMP 36.7; O2SAT 93
[2025-09-24] MEDS: THIAMINE 100 MG TABLET PO (09:15)
[2025-09-24] MEDS: MEMANTINE HCL 5 MG TABLET PO ×2 (09:15→21:33)
[2025-09-24] MEDS: NICOTINE PATCH 21 MG/24 HR PATCH.TD24 TOP (09:15)
--- NOTE | 2025-09-24 12:22 | PD.HHPROG ---
Documentation for date of: 09/24/25 Subjective - Hospitalist Subjective Interval history: Patient seen and evaluated this AM. No acute events overnight. Sitter at bedside. Patient states he is going to checkout tomorrow. He plans on going to visit friends in [facility] and then go to [place]. Patient is aware that he is in [place]. He has no complaints at this time. He denies fevers, chills, nausea, vomiting, abdominal pain, diarrhea, dysuria, chest pain or shortness of breath. Review of Systems Constitutional Constitutional: Reports system reviewed and no additional complaints, except as documented Exam Vital Signs Temp Pulse Resp BP Pulse Ox O2 Del Method 98.0 F 70 18 116/72 93 L Room Air 09/24/25 06:00 09/24/25 06:00 09/24/25 06:00 09/24/25 06:00 09/24/25 06:00 09/24/25 06:00 Narrative Gen: No acute distress, poor hygiene HEENT: NCAT, PERRLOU, Sclera anicteric, conjunctiva noninjected, oral mucosa moist without erythema Neck: Supple, full range of motion, no LAD CV: RRR, no murmurs, rubs or gallops Resp: CTAB/L, no wheezing, rhonchi or rales GI: abdomen soft, bowel sounds noted, no tenderness to palpation, no guarding or rebound tenderness, no organomegaly Skin: clean, dry, no rashes, lesions or ecchymosis Ext: no clubbing, cyanosis, or edema Neuro: A&O x2, CN II- XII intact b/l, no focal neurological deficits, gait is coordinated Objective - Hospitalist Labs Diagram: 09/22/25 04:25 09/22/25 04:25 Assessment & Plan Patient Synopsis Patient is a 65 years old male with past medical history of alcohol abuse, arthritis, gallbladder surgery who presented with back pain, foot pain and confusion. Admitted overnight for management of rhabdomyolysis, alcohol abuse. 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 Urine alcohol <3.0. CIWA stable. Continues to be AOx3, however still slightly confused. EEG negative. MRI negative for acute processes, no acute infarct, moderate chronic microvascular white matter change. B12 wnl, TSH elevated but T4 wnl, syphillis and HIV neg, trig 104, cho 174, LDL 110, HDL 43. Plan: - PO thiamine 100 mg QD and folic acid 1 mg BID - Donepezil 10 mg qhs, and added memantine 5mg BID - Neurology consulted, recs appreciated: Needs terminal make up operator placement for severe cognitive impairment. - Social service referral, counselled extensively regarding alcohol cessation - Pending care home placement. Daughter working on conservatorship. - Per neurology and primary team, patient does not have capacity to make his own decision due to cognitive impairment #Back pain, resolved #Elevated CK, c/f early rhabdomyolysis, resolved Reports back pain is chronic and painful on admission, but currently tolerable. Denies urinary or fecal incontinence. CK 1000->900->360 following fluids. Lumbar spine CT showed diffuse moderate to advanced lumbar degenerative disc disease, most severe at L2-L3, L3-L4; L5-S1 5 mm central lumbar disc bulge contiguous with the right and left S1 nerve roots, L4-L5 4 mm central lumbar bulge disc. Thoracic spine CT also showed mild to moderate diffuse thoracic degenerative disc disease. Plan: - CTM for pain #Foot pain, resolved #New LLE blister, resolved Does not know when or how blisters originated. Denies foot pain currently. Plan: - Wound care following #Homelessness - Referral to case management social worker Nutrition: regular diet DVT Prophylaxis: heparin 5000u q12h Code Status: full disposition: Pending board and care/ placement as patient is unable to make decisions for himself. Time Spent with Patient Time: Total time spent is greater than 50% in coordination of care (as documented) at patient's floor/unit and/or counseling patient: 15min Time with patient: less than 15 minutes Reason for Continued Stay Reason for continued stay: other (pending placement) Quality Measures Quality Measures none Advance care planning discussed with:: patient
--- NOTE | 2025-09-24 16:32 | PC.SS ---
Addendum entered and electronically signed by NURYS Brush 09/27/25 11:58: NURYS confirmed with Simi Fragoso, ; that [facility] will accept the patient on Saturday. Simi confirmed possessing appropriate documentation for placement. Patient will be transitioned to [facility] located at [address] [place] [address]. Original Note: follow up note: SS attempted to leave Simi Fragoso a message to confirm d/c plans for next week Simi @ [phone] Daughter also has paperwork that was sent to our hospital for conservatorship.
[2025-09-24] MEDS: HEPARIN SOD INJ 5000 UNIT/ML VIAL SC (21:33)
[2025-09-24] MEDS: DONEPEZIL HCL 5 MG TABLET 10 MG PO (21:33)
[2025-09-24 22:00] VITALS: BP 124/82; PULSE 69; RESP 20; TEMP 37; O2SAT 99
--- NOTE | 2025-09-24 23:58 | PD.NEUROPROG ---
Documentation for date of: 09/24/25 Subjective Subjective Interval history: Mr. Rodriguez is a 65-year- male with chronic drug and alcohol use and osteoarthritis presented with back pain, foot pain, confusion. Patient is homeless. Patient is confused, disoriented, and not a good historian. No history of recent trauma or falls. Workup in the ER: Labs showed mild anemia and elevated CK. Neurology was consulted to evaluate for altered mental status. Patient was seen in [facility] at the bedside he was eating dinner, no new symptoms or complaints today. Continues to have intermittent confusion and progressive memory loss. Exam - Neurology Vital Signs Temp Pulse Resp BP Pulse Ox O2 Del Method 98.6 F 69 20 124/82 99 Room Air 09/24/25 22:00 09/24/25 22:00 09/24/25 22:00 09/24/25 22:00 09/24/25 22:00 09/24/25 22:00 Objective Labs 09/22/25 04:25 09/22/25 04:25 Assessment & Plan Additional Assessment & Plan Additional Plan: 1. Dementia. clinically Consistent with dementia Continue with Aricept 10 mg at night and memantine 5 mg bid for preventing progression of memory loss. He needs long-term placement for safety, cannot drive.
[2025-09-25 06:00] VITALS: BP 122/85; PULSE 79; RESP 20; TEMP 36.6; O2SAT 96
[2025-09-25 07:48] VITALS: BP 121/81; PULSE 82; RESP 20; TEMP 36.6; O2SAT 96
--- NOTE | 2025-09-25 07:52 | ESPR_ITS ---
Documentation for date of: 09/25/25 Subjective Subjective Interval history: Mr Rodriguez is unhoused and pending placement. no acute concerns. Exam Vital Signs Temp Pulse Resp BP Pulse Ox O2 Del Method 97.9 F 82 20 121/81 96 Room Air 09/25/25 07:48 09/25/25 07:48 09/25/25 07:48 09/25/25 07:48 09/25/25 07:48 09/25/25 07:48 Narrative Exam GENERAL: no acute distress, AAO x2, comfortably laying in bed HEENT: Head AT/ NC. Mucous membranes moist. PERRL. NECK: Supple, no lymphadenopathy, no carotid bruits. CARDIOVASCULAR: RRR. Normal S1/S2, No m/r/g. No pitting edema of bilateral LEs. RESPIRATORY: CTAB. No wheezing, rhonchi, crackles. GASTROINTESTINAL: Abdomen soft, non tender no palpable masses. Bowel sounds present MUSCULOSKELETAL:? No cyanosis or edema, no visible joint swelling. NEUROLOGICAL: CN II-XII grossly intact. No focal deficits. Sensation intact, symmetric. PSYCHIATRIC: Awake and alert, not agitated, normal mood and affect. SKIN: No obvious rashes, no jaundice, normal turgor. Objective Labs 09/22/25 04:25 09/22/25 04:25 Quality Measures Quality Measures VTE prophylaxis Advance care planning discussed with:: patient Assessment & Plan Assessment Current Active Medications: Generic Name Dose Route Start Last Admin Trade Name Freq PRN Reason Stop Dose Admin Acetaminophen 650 mg 09/10/25 03:17 Acetaminophen 325 Mg Tablet PO 10/10/25 03:16 Q6H PRN Fever >101.5 Al Hydrox/Mg Hydrox/Simethicone 30 ml 09/10/25 03:17 Mg Hyd/Al Hyd/Carolee (Maalox Reg) Susp 30 Ml Udc PO 10/10/25 03:16 Q6H PRN Indigestion Bisacodyl 10 mg 09/10/25 03:17 Bisacodyl 5 Mg Tabec PO 10/10/25 03:16 QDAY PRN CONSTIPATION Protocol Donepezil HCl 10 mg 09/23/25 21:00 09/24/25 21:33 Donepezil Hcl 5 Mg Tablet PO 10/23/25 20:59 10 mg HS STEPHENIE Administration Heparin Sodium (Porcine) 5,000 unit 09/11/25 09:00 09/24/25 21:33 Heparin Sod Inj 5000 Unit/Ml Vial SC 09/25/25 08:59 5,000 unit Q12HR STEPHENIE Administration Memantine 5 mg 09/23/25 09:00 09/24/25 21:33 Memantine Hcl 5 Mg Tablet PO 10/23/25 08:59 5 mg BID STEPHENIE Administration Nicotine 21 mg 09/19/25 16:15 09/24/25 09:15 Nicotine Patch 21 Mg/24 Hr Patch.Td24 TOP 10/19/25 16:14 21 mg QDAY STEPHENIE Administration Thiamine HCl 100 mg 09/18/25 10:45 09/24/25 09:15 Thiamine 100 Mg Tablet PO 10/18/25 10:44 100 mg QDAY STEPHENIE Administration Plan Patient is a 65 years old male with past medical history of alcohol abuse, arthritis, gallbladder surgery who presented with back pain, foot pain and confusion. Admitted for management of rhabdomyolysis, alcohol abuse, resolved and stable, pending placement at board and care. 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 Urine alcohol <3.0. CIWA stable. Continues to be AOx3, however still slightly confused. EEG negative. MRI negative for acute processes, no acute infarct, moderate chronic microvascular white matter change. B12 wnl, TSH elevated but T4 wnl, syphillis and HIV neg, trig 104, cho 174, LDL 110, HDL 43. Plan: - d/c PO thiamine 100 mg QD given elevated thiamine levels - folic acid 1 mg BID - Donepezil 10 mg qhs, and added memantine 5mg BID - Neurology consulted, recs appreciated: Needs bacon skin lifter placement for severe cognitive impairment. - Social service referral, counselled extensively regarding alcohol cessation - Pending halfway placement. Daughter working on conservatorship. - Per neurology and primary team, patient does not have capacity to make his own decision due to cognitive impairment #Back pain, resolved #Elevated CK, c/f early rhabdomyolysis, resolved Reports back pain is chronic and painful on admission, but currently tolerable. Denies urinary or fecal incontinence. CK 1000->900->[address] following fluids. Lumbar spine CT showed diffuse moderate to advanced lumbar degenerative disc disease, most severe at L2-L3, L3-L4; L5-S1 5 mm central lumbar disc bulge contiguous with the right and left S1 nerve roots, L4-L5 4 mm central lumbar bulge disc. Thoracic spine CT also showed mild to moderate diffuse thoracic degenerative disc disease. Plan: - CTM for pain #Foot pain, resolved #New LLE blister, resolved Does not know when or how blisters originated. Denies foot pain currently. Plan: - Wound care following #Homelessness - Referral to child protective services social worker Nutrition: regular diet DVT Prophylaxis: heparin 5000u q12h Code Status: full disposition: Pending board and care/ placement as patient is unable to make decisions for himself. Plan discussed with my attending Dr. Rubio and my senior resident Dr. Lois Giraldo MD PGY1 Attending Provider Attestation/Addendum I Nahomy Rubio MD reviewed the note and agree with the resident's assessment & plan with modifications/additions/exceptions as below. I have personally reviewed labs, imaging, home meds/prior records, examined the patient, formulated and discussed management plan with the IM team.
[2025-09-25] MEDS: THIAMINE 100 MG TABLET PO (08:10)
[2025-09-25] MEDS: NICOTINE PATCH 21 MG/24 HR PATCH.TD24 TOP (08:10)
[2025-09-25] MEDS: MEMANTINE HCL 5 MG TABLET PO ×2 (08:10→20:32)
[2025-09-25] MEDS: DONEPEZIL HCL 5 MG TABLET 10 MG PO (20:32)
[2025-09-25] MEDS: MELATONIN 3 MG TABLET 6 MG PO (20:32)
[2025-09-25 22:00] VITALS: BP 127/81; PULSE 68; RESP 18; TEMP 36.7; O2SAT 98
--- NOTE | 2025-09-25 23:43 | PD.NEUROPROG ---
Documentation for date of: 09/25/25 Subjective Subjective Interval history: Mr. Rodriguez is a 65-year- male with chronic drug and alcohol use and osteoarthritis presented with back pain, foot pain, confusion. Patient is homeless. Patient is confused, disoriented, and not a good historian. No history of recent trauma or falls. Workup in the ER: Labs showed mild anemia and elevated CK. Neurology was consulted to evaluate for altered mental status. Patient was seen in [facility] at the bedside he was eating dinner, no new symptoms or complaints today. Continues to have intermittent confusion and progressive memory loss. Exam - Neurology Vital Signs Temp Pulse Resp BP Pulse Ox O2 Del Method 98.0 F 68 18 127/81 98 Room Air 09/25/25 22:00 09/25/25 22:00 09/25/25 22:00 09/25/25 22:00 09/25/25 22:00 09/25/25 22:00 Narrative Exam GENERAL APPEARANCE: Well hydrated, well-nourished in no acute distress. HEENT: Normocephalic, atraumatic, extraocular movements intact. Pupils: Equal reacting to light and accommodation NECK: Supple, no JVD or bruits. CARDIOVASULAR: Heart: S1, S2 heard, regular without S3-S4 or murmur no rubs or gallops. LUNGS/CHEST: Clear to auscultation bilaterally. No rails, rhonchi, or wheezing. Normal inspection. ABDOMEN: Soft, nontender, with normal bowel sounds. No pulsatile masses. No rebound, rigidity, or guarding. Normal inspection and palpation. EXTREMITIES: Normal inspection and palpation. No edema, clubbing or cyanosis. SKIN: Warm and dry without rashes. Normal inspection. MUSCULOSKELETAL: No cervical, thoracic, lumbar or midline bony tenderness. Normal inspection. NEURO: Alert, awake and oriented x2. Cranial nerves: II through XII grossly intact. Speech and language: Normal with no dysarthria or dysphasia. Motor system: Tone and bulk: Normal: Strength: 5 out of 5 in all 4 extremities; No pronator drift noted. Deep tendon reflexes: 2+ bilaterally symmetrical. Plantar reflex: Downgoing bilaterally. Sensory system: Intact to all modalities of sensation bilaterally. Coordination: Intact to galgiq-xvwy-rtydb and wwyg-qmqn-uqcq test bilaterally. No ataxia, no dysmetria, or dysdiadochokinesia noted. No intention tremors noted. Gait: Normal. Toe, heel, tandem walk all are normal. Romberg: Negative. No signs of meningeal irritation noted. PSYCHIATRIC: Normal mood and affect. Objective Labs 09/22/25 04:25 09/22/25 04:25 Assessment & Plan Additional Assessment & Plan Additional Plan: Dementia: clinically Consistent with dementia Continue with Aricept 10 mg at night and memantine 5 mg bid for preventing progression of memory loss. He needs long-term placement for safety, cannot drive.
[2025-09-26 05:41] VITALS: BP 111/70; PULSE 68; RESP 16; TEMP 36.6; O2SAT 96
[2025-09-26] MEDS: MEMANTINE HCL 5 MG TABLET PO ×2 (08:20→20:43)
[2025-09-26] MEDS: NICOTINE PATCH 21 MG/24 HR PATCH.TD24 TOP (08:20)
--- NOTE | 2025-09-26 11:30 | ESPR_ITS ---
<Statement entered by Virgilio Rubio MD - 09/26/25 20:45> Pt is seen at bedside, pending SNF placement. no new complaints or concerns. Patient was seen and examined by me personally. I have directly supervised and reviewed documentation by the team resident and agree with its findings. ------- Plan of care was discussed with the attending, Dr. Ramiro Rubio, PGY-2 Documentation for date of: 09/26/25 Subjective Subjective Interval history: Patient seen and examined at bedside. No overnight events or immediate concerns. Pending placement at board and care. Exam Vital Signs Temp Pulse Resp BP Pulse Ox O2 Del Method 97.9 F 68 16 111/70 96 Room Air 09/26/25 05:41 09/26/25 05:41 09/26/25 05:41 09/26/25 05:41 09/26/25 05:41 09/26/25 05:41 Narrative Exam General: Awake and in no acute distress. Conversational and non-toxic appearing. Neurologic: GCS 15. Alert and oriented x3, no gross neurological deficit, and patient able to move all 4 extremities. HEENT: Normocephalic, atraumatic, mucous membranes moist. Pupils reactive to light. Heart: Regular rate and rhythm, normal S1 and S2, no murmurs. Lungs: Clear to auscultation bilaterally with no wheezing or crackles. Abdomen: Soft, nondistended, nontender, positive bowel sounds. No guarding or rebound tenderness. Extremities: No edema. 2+ radial and dorsalis pedis pulses bilaterally. Skin: Warm. Dry. No rash or ecchymoses. Objective Labs 09/22/25 04:25 09/22/25 04:25 Quality Measures Quality Measures VTE prophylaxis Advance care planning discussed with:: patient Assessment & Plan Assessment Current Active Medications: Generic Name Dose Route Start Last Admin Trade Name Freq PRN Reason Stop Dose Admin Acetaminophen 650 mg 09/10/25 03:17 Acetaminophen 325 Mg Tablet PO 10/10/25 03:16 Q6H PRN Fever >101.5 Al Hydrox/Mg Hydrox/Simethicone 30 ml 09/10/25 03:17 Mg Hyd/Al Hyd/Carolee (Maalox Reg) Susp 30 Ml Udc PO 10/10/25 03:16 Q6H PRN Indigestion Bisacodyl 10 mg 09/10/25 03:17 Bisacodyl 5 Mg Tabec PO 10/10/25 03:16 QDAY PRN CONSTIPATION Protocol Donepezil HCl 10 mg 09/23/25 21:00 09/25/25 20:32 Donepezil Hcl 5 Mg Tablet PO 10/23/25 20:59 10 mg HS STEPHENIE Administration Melatonin 6 mg 09/25/25 21:00 09/25/25 20:32 Melatonin 3 Mg Tablet PO 10/25/25 20:59 6 mg HS STEPHENIE Administration Memantine 5 mg 09/23/25 09:00 09/26/25 08:20 Memantine Hcl 5 Mg Tablet PO 10/23/25 08:59 5 mg BID STEPHENIE Administration Nicotine 21 mg 09/19/25 16:15 09/26/25 08:20 Nicotine Patch 21 Mg/24 Hr Patch.Td24 TOP 10/19/25 16:14 21 mg QDAY STEPHENIE Administration Plan Summary: Patient is a 65 year old male with past medical history of alcohol abuse, arthritis, gallbladder surgery who presented with back pain, foot pain and confusion. Admitted for management of rhabdomyolysis, alcohol abuse, resolved and stable, pending placement at board and care. 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 Urine alcohol <3.0. CIWA stable. Continues to be AOx3, however still slightly confused. EEG negative. MRI negative for acute processes, no acute infarct, moderate chronic microvascular white matter change. B12 wnl, TSH elevated but T4 wnl, syphillis and HIV neg, trig 104, cho 174, LDL 110, HDL 43. Plan: - Folic acid 1 mg BID - Donepezil 10 mg qhs, and added memantine 5mg BID - Neurology consulted, recs appreciated: Needs exterminator helper termite placement for severe cognitive impairment. - Social service referral, counselled extensively regarding alcohol cessation - Pending exterminator helper termite placement. Daughter working on conservatorship. - Per neurology and primary team, patient does not have capacity to make his own decision due to cognitive impairment #Back pain, resolved #Elevated CK, c/f early rhabdomyolysis, resolved Reports back pain is chronic and painful on admission, but currently tolerable. Denies urinary or fecal incontinence. CK 1000->900->360 following fluids. Lumbar spine CT showed diffuse moderate to advanced lumbar degenerative disc disease, most severe at L2-L3, L3-L4; L5-S1 5 mm central lumbar disc bulge contiguous with the right and left S1 nerve roots, L4-L5 4 mm central lumbar bulge disc. Thoracic spine CT also showed mild to moderate diffuse thoracic degenerative disc disease. Plan: - CTM for pain #Foot pain, resolved #New LLE blister, resolved Does not know when or how blisters originated. Denies foot pain currently. Plan: - Wound care following #Homelessness - Referral to social Disposition: Pending board and care/ placement as patient is unable to make decisions for himself. Nutrition: Regular diet DVT Prophylaxis: Heparin 5000u q12h IV: Peripheral Code Status: Full Patient was seen and discussed with my attending physician Dr. Ramiro WHITLOCK and my senior resident Dr. Ramiro WHITLOCK PGY-2. Georges Kessler DO PGY-1. Attending Provider Attestation/Addendum I Nahomy Rubio MD reviewed the note and agree with the resident's assessment & plan with modifications/additions/exceptions as below. I have personally reviewed labs, imaging, home meds/prior records, examined the patient, formulated and discussed management plan with the IM team.
[2025-09-26 14:00] VITALS: BP 111/60; PULSE 78; RESP 16; TEMP 36.4; O2SAT 96
[2025-09-26] MEDS: MELATONIN 3 MG TABLET 6 MG PO (20:43)
[2025-09-26] MEDS: DONEPEZIL HCL 5 MG TABLET 10 MG PO (20:43)
--- NOTE | 2025-09-26 21:30 | PC.NURSE ---
Patient is very upset, keep on saying of wanting to go to his truck that is park outside of this hotel. Of wanting to go to store. Reality orientation done, to no avail. Requesting for security, will call.
[2025-09-26] MEDS: ACETAMINOPHEN 325 MG TABLET 650 MG PO (21:32)
--- NOTE | 2025-09-26 23:59 | PD.VPROG1 ---
Telemedicine visit statement This visit was conducted with the use of interactive audio and video telecommunications system that permits real time communication between the patient and the provider. Patient's verbal consent for virtual visit was obtained on 09/26/25 at 2359. Documentation for date of: 09/26/25 Subjective Subjective Interval history: Patient is in MedSurg, moves both upper and lower extremities. Tolerating oral diet well. Virtual exam Vital Signs Temp Pulse Resp BP Pulse Ox O2 Del Method 97.6 F 78 16 111/60 96 Room Air 09/26/25 14:00 09/26/25 14:00 09/26/25 14:00 09/26/25 14:00 09/26/25 14:00 09/26/25 14:00 Objective Labs 09/22/25 04:25 09/22/25 04:25 Assessment & Plan Assessment 1) Altered mental status: from cognitive impairment with baseline dementia/chronic alcohol use. Continue donepezil and memantine for preventing progression. continue with supervision, placement pending.
[2025-09-27 00:16] VITALS: BP 130/81; PULSE 66; RESP 18; TEMP 36.3; O2SAT 100
[2025-09-27 06:00] VITALS: BP 130/81; PULSE 66; RESP 18; TEMP 36.3; O2SAT 100
[2025-09-27] MEDS: NICOTINE PATCH 21 MG/24 HR PATCH.TD24 TOP (08:12)
[2025-09-27] MEDS: MEMANTINE HCL 5 MG TABLET PO ×2 (08:12→21:17)
[2025-09-27] MEDS: ACETAMINOPHEN 325 MG TABLET 650 MG PO (12:27)
[2025-09-27 14:00] VITALS: BP 124/88; PULSE 96; RESP 18; TEMP 36.3; O2SAT 96
--- NOTE | 2025-09-27 14:10 | ESPR_ITS ---
<Statement entered by Virgilio Rubio MD - 09/28/25 17:06> Patient is seen at bedside currently has no new complaints. Asking if he can be discharged as he has things to do outside. Patient is reassured he must stay in the hospital while waiting for his bed availability on Saturday at SNF. Patient has agreed to stay until Saturday. Patient was seen and examined by me personally. I have directly supervised and reviewed documentation by the team resident and agree with its findings. ------- Plan of care was discussed with the attending, Dr. Kevin Rubio, PGY-2 Documentation for date of: 09/27/25 Subjective Subjective Interval history: Patient seen and examined at bedside. Patient has been agitated is attempting to leave. Patient is unable to make his own decisions as he is confused and has a history of dementia. He received 1 dose of 1 mg Ativan. Will continue to monitor Exam Vital Signs Temp Pulse Resp BP Pulse Ox O2 Del Method 97.4 F 96 18 124/88 H 96 Room Air 09/27/25 14:00 09/27/25 14:00 09/27/25 14:00 09/27/25 14:00 09/27/25 14:00 09/27/25 14:00 Narrative Exam General: Confused, anxious, speaking about various topics. Neurologic: GCS 15. Alert and oriented x2, not oriented to place, no gross neurological deficit, and patient able to move all 4 extremities. HEENT: Normocephalic, atraumatic, mucous membranes moist. Pupils reactive to light. Heart: Regular rate and rhythm, normal S1 and S2, no murmurs. Lungs: Clear to auscultation bilaterally with no wheezing or crackles. Abdomen: Soft, nondistended, nontender, positive bowel sounds. No guarding or rebound tenderness. Extremities: No edema. 2+ radial and dorsalis pedis pulses bilaterally. Skin: Warm. Dry. No rash or ecchymoses. Objective Labs 09/22/25 04:25 09/22/25 04:25 Quality Measures Quality Measures VTE prophylaxis Advance care planning discussed with:: patient Assessment & Plan Assessment Current Active Medications: Generic Name Dose Route Start Last Admin Trade Name Freq PRN Reason Stop Dose Admin Acetaminophen 650 mg 09/10/25 03:17 09/27/25 12:27 Acetaminophen 325 Mg Tablet PO 10/10/25 03:16 650 mg Q6H PRN Administration Fever >101.5 Al Hydrox/Mg Hydrox/Simethicone 30 ml 09/10/25 03:17 Mg Hyd/Al Hyd/Carolee (Maalox Reg) Susp 30 Ml Udc PO 10/10/25 03:16 Q6H PRN Indigestion Bisacodyl 10 mg 09/10/25 03:17 Bisacodyl 5 Mg Tabec PO 10/10/25 03:16 QDAY PRN CONSTIPATION Protocol Donepezil HCl 10 mg 09/23/25 21:00 09/26/25 20:43 Donepezil Hcl 5 Mg Tablet PO 10/23/25 20:59 10 mg HS STEPHENIE Administration Melatonin 6 mg 09/25/25 21:00 09/26/25 20:43 Melatonin 3 Mg Tablet PO 10/25/25 20:59 6 mg HS STEPHENIE Administration Memantine 5 mg 09/23/25 09:00 09/27/25 08:12 Memantine Hcl 5 Mg Tablet PO 10/23/25 08:59 5 mg BID STEPHENIE Administration Nicotine 21 mg 09/19/25 16:15 09/27/25 08:12 Nicotine Patch 21 Mg/24 Hr Patch.Td24 TOP 10/19/25 16:14 21 mg QDAY STEPHENIE Administration Plan Summary: Patient is a 65 year old male with past medical history of alcohol abuse, arthritis, gallbladder surgery who presented with back pain, foot pain and confusion. Admitted for management of rhabdomyolysis, alcohol abuse, resolved and stable, pending placement at board and care. 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 Urine alcohol <3.0. CIWA stable. Continues to be AOx3, however still slightly confused. EEG negative. MRI negative for acute processes, no acute infarct, moderate chronic microvascular white matter change. B12 wnl, TSH elevated but T4 wnl, syphillis and HIV neg, trig 104, cho 174, LDL 110, HDL 43. Plan: - Folic acid 1 mg BID - Donepezil 10 mg qhs, and added memantine 5mg BID - Neurology consulted, recs appreciated: Needs security program manager placement for severe cognitive impairment. - Social service referral, counselled extensively regarding alcohol cessation - Pending fdc placement. Daughter working on conservatorship. - Per neurology and primary team, patient does not have capacity to make his own decision due to cognitive impairment #Back pain, resolved #Elevated CK, c/f early rhabdomyolysis, resolved Reports back pain is chronic and painful on admission, but currently tolerable. Denies urinary or fecal incontinence. CK 1000->900->360 following fluids. Lumbar spine CT showed diffuse moderate to advanced lumbar degenerative disc disease, most severe at L2-L3, L3-L4; L5-S1 5 mm central lumbar disc bulge contiguous with the right and left S1 nerve roots, L4-L5 4 mm central lumbar bulge disc. Thoracic spine CT also showed mild to moderate diffuse thoracic degenerative disc disease. Plan: - CTM for pain #Foot pain, resolved #New LLE blister, resolved Does not know when or how blisters originated. Denies foot pain currently. Plan: - Wound care following #Homelessness - Referral to social Disposition: Patient aggitated, received 1 mg Ativan. Pending board and care/ placement as patient is unable to make decisions for himself. Nutrition: Regular diet DVT Prophylaxis: Heparin 5000u q12h IV: Peripheral Code Status: Full Patient was seen and discussed with my attending physician Dr. Dr. Kevin DURAN and my senior resident Dr. Ramiro WHITLOCK PGY-2. Georges Kessler DO PGY-1. Attending Provider Attestation/Addendum Sunday, Marti Brown DO, attest that I was physically present for the benavidez portions of the service and evaluated the patient with the resident and I reviewed and discussed the case with the resident and agree with the resident's findings and plans of care as documented above Patient seen and eval this a.m. He is very anxious to leave today. Patient is asking until when he has paid for his hotel stay. Explained to patient that his anticipated discharge date will be Saturday. However, patient is frustrated and states that he wished that he paid for his hotel room on a daily basis and regrets paying ahead of time. He also continued to speak tangentially regarding his son's but has been devastating. Patient is otherwise ambulating without issue and has no acute complaints. He states that he wishes to leave and smoke his cigarettes. Patient was able to be more calm once explained to him that he can be discharged on Saturday safely. Patient is not aware that he is in [place].
--- NOTE | 2025-09-27 14:51 | PC.SS ---
Rounding: Pending bed at [facility] [address] on Saturday when they have a bed available for pt. Pt conservatorship paperwork on physical chart also pending Dr. Zhu to fill out and send to dtr. Email on manilla folder on chart
--- NOTE | 2025-09-27 20:28 | ESPR_ITS ---
Documentation for date of: 09/27/25 Subjective Subjective Interval history: Mr. Rodriguez is a 65-year- male with chronic drug and alcohol use and osteoarthritis presented with back pain, foot pain, confusion. Patient is homeless. Patient is confused, disoriented, and not a good historian. No history of recent trauma or falls. Workup in the ER: Labs showed mild anemia and elevated CK. Neurology was consulted to evaluate for altered mental status. Patient was seen in [facility] at the bedside he was eating dinner, no new symptoms or complaints today. Continues to have intermittent confusion and progressive memory loss. Exam - Neurology Vital Signs Temp Pulse Resp BP Pulse Ox O2 Del Method 97.4 F 96 18 124/88 H 96 Room Air 09/27/25 14:00 09/27/25 14:00 09/27/25 14:00 09/27/25 14:00 09/27/25 14:00 09/27/25 14:00 Narrative Exam GENERAL APPEARANCE: Well hydrated, well-nourished in no acute distress. HEENT: Normocephalic, atraumatic, extraocular movements intact. Pupils: Equal reacting to light and accommodation NECK: Supple, no JVD or bruits. CARDIOVASULAR: Heart: S1, S2 heard, regular without S3-S4 or murmur no rubs or gallops. LUNGS/CHEST: Clear to auscultation bilaterally. No rails, rhonchi, or wheezing. Normal inspection. ABDOMEN: Soft, nontender, with normal bowel sounds. No pulsatile masses. No rebound, rigidity, or guarding. Normal inspection and palpation. EXTREMITIES: Normal inspection and palpation. No edema, clubbing or cyanosis. SKIN: Warm and dry without rashes. Normal inspection. MUSCULOSKELETAL: No cervical, thoracic, lumbar or midline bony tenderness. Normal inspection. NEURO: Alert, awake and oriented x2. Cranial nerves: II through XII grossly intact. Speech and language: Normal with no dysarthria or dysphasia. Motor system: Tone and bulk: Normal: Strength: 5 out of 5 in all 4 extremities; No pronator drift noted. Deep tendon reflexes: 2+ bilaterally symmetrical. Plantar reflex: Downgoing bilaterally. Sensory system: Intact to all modalities of sensation bilaterally. Coordination: Intact to rpmzbj-plan-wkhpz and xomt-sutz-tiyr test bilaterally. No ataxia, no dysmetria, or dysdiadochokinesia noted. No intention tremors noted. Gait: Normal. Toe, heel, tandem walk all are normal. Romberg: Negative. No signs of meningeal irritation noted. PSYCHIATRIC: Normal mood and affect. Objective Labs 09/22/25 04:25 09/22/25 04:25 Assessment & Plan Additional Assessment & Plan Additional Plan: 1. Dementia. clinically Consistent with dementia Continue with Aricept 10 mg at night and memantine 5 mg bid for preventing progression of memory loss. He needs long-term placement for safety, cannot drive.
[2025-09-27] MEDS: MELATONIN 3 MG TABLET 6 MG PO (21:16)
[2025-09-27] MEDS: DONEPEZIL HCL 5 MG TABLET 10 MG PO (21:17)
[2025-09-27 21:57] VITALS: BP 129/80; PULSE 77; RESP 18; TEMP 36.9; O2SAT 95
[2025-09-28 05:38] VITALS: BP 111/78; PULSE 73; RESP 18; TEMP 36.9; O2SAT 96
[2025-09-28] MEDS: NICOTINE PATCH 21 MG/24 HR PATCH.TD24 TOP (08:18)
[2025-09-28] MEDS: MEMANTINE HCL 5 MG TABLET PO ×2 (08:18→20:44)
--- NOTE | 2025-09-28 12:15 | PC.SS ---
Follow up note: SS spoke to daughter, Usha, to updated that Neurologist signed the [facility] paperwork. SS sent daughter a copy as requested. SS reminded daughter that the board and care is not a locked down facility. However, they have security measures and a warehouse stocker on site that resides in home. Daughter is aware and agreeable to this plan short term. Daughter's plan is to place patient in [facility] closer to other family and friends. SS had previously sent inquiry's to all [facility] facilities. No accepting facilities. D/c for Saturday
[2025-09-28] MEDS: ACETAMINOPHEN 325 MG TABLET 650 MG PO (12:42)
[2025-09-28 14:00] VITALS: BP 112/66; PULSE 75; RESP 16; TEMP 36.9; O2SAT 98
[2025-09-28 14:55] VITALS: BMI 24.1
--- NOTE | 2025-09-28 15:20 | PC.NURSE ---
Pt is very restless and agitated. Pt confused. Wants to go to the store and buy cigarettes. Pt is under the impression he is at a hotel. Called Dr. Kessler and made aware. to come see patient. No new orders at this time.
--- NOTE | 2025-09-28 15:32 | ESPR_ITS ---
<Statement entered by Virgilio Rubio MD - 09/28/25 18:18> Patient is seen at bedside. Patient anticipate discharge is Saturday to SNF. Conservatorship paperwork is also pending as patient is unable to make decisions for himself due to his mental status and confusion. Patient requested if he could step outside and go to his barbershop to get a haircut and stop by the bank. Patient is explained he is in the hospital and is unable to do so however requested the nurse to provide clippers so patient is able to groom his sky and hair. Patient is otherwise pleasant. Gait Patient was seen and examined by me personally. I have directly supervised and reviewed documentation by the team resident and agree with its findings. ------- Plan of care was discussed with the attending, Dr. Kevin Rubio, PGY-2 Documentation for date of: 09/28/25 Subjective Subjective Interval history: Patient seen and examined at bedside. No overnight events. Patient is less agitated today than yesterday. Still pending placement which will be tomorrow. Exam Vital Signs Temp Pulse Resp BP Pulse Ox O2 Del Method 98.5 F 75 16 112/66 98 Room Air 09/28/25 14:00 09/28/25 14:00 09/28/25 14:00 09/28/25 14:00 09/28/25 14:00 09/28/25 14:00 Narrative Exam General: Confused, speaking about various topics. Neurologic: GCS 15. Alert and oriented x2, not oriented to place, no gross neurological deficit, and patient able to move all 4 extremities. HEENT: Normocephalic, atraumatic, mucous membranes moist. Pupils reactive to light. Heart: Regular rate and rhythm, normal S1 and S2, no murmurs. Lungs: Clear to auscultation bilaterally with no wheezing or crackles. Abdomen: Soft, nondistended, nontender, positive bowel sounds. No guarding or rebound tenderness. Extremities: No edema. 2+ radial and dorsalis pedis pulses bilaterally. Skin: Warm. Dry. No rash or ecchymoses. Objective Labs 09/22/25 04:25 09/22/25 04:25 Quality Measures Quality Measures VTE prophylaxis Advance care planning discussed with:: patient Assessment & Plan Assessment Current Active Medications: Generic Name Dose Route Start Last Admin Trade Name Freq PRN Reason Stop Dose Admin Acetaminophen 650 mg 09/28/25 13:19 Acetaminophen 325 Mg Tablet PO 10/10/25 03:16 Q6H PRN Fever >101.5 or pain Al Hydrox/Mg Hydrox/Simethicone 30 ml 09/10/25 03:17 Mg Hyd/Al Hyd/Carolee (Maalox Reg) Susp 30 Ml Udc PO 10/10/25 03:16 Q6H PRN Indigestion Bisacodyl 10 mg 09/10/25 03:17 Bisacodyl 5 Mg Tabec PO 10/10/25 03:16 QDAY PRN CONSTIPATION Protocol Donepezil HCl 10 mg 09/23/25 21:00 09/27/25 21:17 Donepezil Hcl 5 Mg Tablet PO 10/23/25 20:59 10 mg HS STEPHENIE Administration Melatonin 6 mg 09/25/25 21:00 09/27/25 21:16 Melatonin 3 Mg Tablet PO 10/25/25 20:59 6 mg HS STEPHENIE Administration Memantine 5 mg 09/23/25 09:00 09/28/25 08:18 Memantine Hcl 5 Mg Tablet PO 10/23/25 08:59 5 mg BID STEPHENIE Administration Nicotine 21 mg 09/19/25 16:15 09/28/25 08:18 Nicotine Patch 21 Mg/24 Hr Patch.Td24 TOP 10/19/25 16:14 21 mg QDAY STEPHENIE Administration Plan Summary: Patient is a 65 year old male with past medical history of alcohol abuse, arthritis, gallbladder surgery who presented with back pain, foot pain and confusion. Admitted for management of rhabdomyolysis, alcohol abuse, resolved and stable, pending placement at board and care. 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 Urine alcohol <3.0. CIWA stable. Continues to be AOx3, however still slightly confused. EEG negative. MRI negative for acute processes, no acute infarct, moderate chronic microvascular white matter change. B12 wnl, TSH elevated but T4 wnl, syphillis and HIV neg, trig 104, cho 174, LDL 110, HDL 43. Plan: - Folic acid 1 mg BID - Donepezil 10 mg qhs, and added memantine 5mg BID - Neurology consulted, recs appreciated: Needs watermaster placement for severe cognitive impairment. - Social service referral, counselled extensively regarding alcohol cessation - Pending watermaster placement. Daughter working on conservatorship. - Per neurology and primary team, patient does not have capacity to make his own decision due to cognitive impairment #Back pain, resolved #Elevated CK, c/f early rhabdomyolysis, resolved Reports back pain is chronic and painful on admission, but currently tolerable. Denies urinary or fecal incontinence. CK 1000->900->360 following fluids. Lumbar spine CT showed diffuse moderate to advanced lumbar degenerative disc disease, most severe at L2-L3, L3-L4; L5-S1 5 mm central lumbar disc bulge contiguous with the right and left S1 nerve roots, L4-L5 4 mm central lumbar bulge disc. Thoracic spine CT also showed mild to moderate diffuse thoracic degenerative disc disease. Plan: - CTM for pain #Foot pain, resolved #New LLE blister, resolved Does not know when or how blisters originated. Denies foot pain currently. Plan: - Wound care following #Homelessness - Referral to social Disposition: Pending board and care/ placement as patient is unable to make decisions for himself. Nutrition: Regular diet DVT Prophylaxis: Heparin 5000u q12h IV: Peripheral Code Status: Full Patient was seen and discussed with my attending physician Dr. Dr. Kevin DURAN and my senior resident Dr. Ramiro WHITLOCK PGY-2. Georges Kessler DO PGY-1. Attending Provider Attestation/Addendum Sunday, Marti Brown DO, attest that I was physically present for the benavidez portions of the service and evaluated the patient with the resident and I reviewed and discussed the case with the resident and agree with the resident's findings and plans of care as documented above Patient seen and eval this admission. He states that he is doing well. He is sitting on the edge of the bed and states that he would like to see his byrd. He also states that he needs to go to the bank and see a bankruptcy judge to transfer his funds to pay rent. Anticipated discharge to patient is much calmer today.
--- NOTE | 2025-09-28 19:35 | PC.NURSE ---
Pt has been confused off and on all day but was doing well with redirection.Currently Pt is very agitated and wants to leave. Pt states he wants to talk to the junior art director. At this time he is able to answer questions correctly that insist he is alert and oriented. and Dr. Kwan came to the floor. Pt is in the [place] very upset and said we are holding him against his will. Dr. Kwan talked to patient and let him know he has a place to discharge to tomorrow. He is still very agitated and wants to leave the hospital. Pt states his truck is in impound but he has money for a taxi and knows where he wants to go. Called next of Kin Usha. She did not answer. Dr. Kwan and were able to get patient to go back to his room and are currently talking with patient.
--- NOTE | 2025-09-28 19:45 | PC.NURSE ---
Daughter Usha called back, updated of patient wanting to leave the hospital, did talked to the patient, been explained the reason why he is still here. Patient is requesting to talk to the Aviation Electronic Warfare Operator, states staff is holding him against his will, states of wanting to smoke and to go the the corner store at [place] wanting to buy his drink , re - oriented to no avail. 2 security personnel at bedside trying to ease patient agitation. Dr Kwan at bedside talking to patient.
--- NOTE | 2025-09-28 19:50 | PC.NURSE ---
Call made to [place] [employer] situation explained and patient of wanting to talked to a chief of police.
--- NOTE | 2025-09-28 20:00 | PC.NURSE ---
Patient did talked to Animal Keeper Head, appear to be calming down.
[2025-09-28] MEDS: DONEPEZIL HCL 5 MG TABLET 10 MG PO (20:44)
[2025-09-28] MEDS: MELATONIN 3 MG TABLET 6 MG PO (20:44)
[2025-09-28 22:00] VITALS: BP 111/80; PULSE 91; RESP 18; TEMP 36.5; O2SAT 97
--- NOTE | 2025-09-28 23:35 | PD.NEUROPROG ---
Documentation for date of: 09/28/25 Subjective Subjective Interval history: Mr. Rodriguez is a 65-year- male with chronic drug and alcohol use and osteoarthritis presented with back pain, foot pain, confusion. Patient is homeless. Patient is confused, disoriented, and not a good historian. No history of recent trauma or falls. Workup in the ER: Labs showed mild anemia and elevated CK. Neurology was consulted to evaluate for altered mental status. Patient was seen in [facility] at the bedside he was eating dinner, no new symptoms or complaints today. Continues to have intermittent confusion and progressive memory loss. Exam - Neurology Vital Signs Temp Pulse Resp BP Pulse Ox O2 Del Method 97.7 F 91 18 111/80 97 Room Air 09/28/25 22:00 09/28/25 22:00 09/28/25 22:00 09/28/25 22:00 09/28/25 22:00 09/28/25 22:00 Narrative Exam GENERAL APPEARANCE: Well hydrated, well-nourished in no acute distress. HEENT: Normocephalic, atraumatic, extraocular movements intact. Pupils: Equal reacting to light and accommodation NECK: Supple, no JVD or bruits. CARDIOVASULAR: Heart: S1, S2 heard, regular without S3-S4 or murmur no rubs or gallops. LUNGS/CHEST: Clear to auscultation bilaterally. No rails, rhonchi, or wheezing. Normal inspection. ABDOMEN: Soft, nontender, with normal bowel sounds. No pulsatile masses. No rebound, rigidity, or guarding. Normal inspection and palpation. EXTREMITIES: Normal inspection and palpation. No edema, clubbing or cyanosis. SKIN: Warm and dry without rashes. Normal inspection. MUSCULOSKELETAL: No cervical, thoracic, lumbar or midline bony tenderness. Normal inspection. NEURO: Alert, awake and oriented x2. Cranial nerves: II through XII grossly intact. Speech and language: Normal with no dysarthria or dysphasia. Motor system: Tone and bulk: Normal: Strength: 5 out of 5 in all 4 extremities; No pronator drift noted. Deep tendon reflexes: 2+ bilaterally symmetrical. Plantar reflex: Downgoing bilaterally. Sensory system: Intact to all modalities of sensation bilaterally. Coordination: Intact to icywjl-szov-vfjvd and htks-csbx-hsld test bilaterally. No ataxia, no dysmetria, or dysdiadochokinesia noted. No intention tremors noted. Gait: Normal. Toe, heel, tandem walk all are normal. Romberg: Negative. No signs of meningeal irritation noted. PSYCHIATRIC: Normal mood and affect. Objective Labs 09/22/25 04:25 09/22/25 04:25 Assessment & Plan Additional Assessment & Plan Additional Plan: 1. Dementia. clinically Consistent with dementia Continue with Aricept 10 mg at night and memantine 5 mg bid for preventing progression of memory loss. He needs long-term placement for safety, cannot drive.
[2025-09-29 06:00] VITALS: BP 118/74; PULSE 76; RESP 20; TEMP 36.6; O2SAT 95
[2025-09-29] MEDS: NICOTINE PATCH 21 MG/24 HR PATCH.TD24 TOP (08:27)
[2025-09-29] MEDS: MEMANTINE HCL 5 MG TABLET PO (08:28)
--- NOTE | 2025-09-29 08:40 | PC.CC ---
Updated preferred pharmacy to [facility] per board and longterm request.
--- NOTE | 2025-09-29 08:41 | PC.SS ---
Addendum entered by Serena Stone 09/29/25 11:32: Clarification: daughter Addendum entered by Serena Stone 09/29/25 11:06: Follow up note: SS contacted Neurologist, Dr. Zhu to update on final d/c plans. Patient to d/c to board and care with house carpenter helper living on site. Patient will not have access to a vehicle. SS will coordinate setting up a home health referral as well as setting up SS wind up worker. In the future, patient would benefit from [facility] 24 hour program for further safety. SS explained this is not a locked down facility. SS also explained this to patient's daughter. technical sales manager has one vehicle for access to take clients to appointments or outings. Patient also has managed [employer] and has access to [employer] for transportation to appointments. Daughter, Kassandra has signed papers that were completed by our Neurologist for future conservatorship. Daughter mentioned her long term care pharmacist goal would be to establish patient for placement in . [facility]. where he would potentially be closer to friends and family. Neurologist recommended a safety alert system for patient. SS will provide contact information for the [employer] system where patient would wear a monitoring watch in case of emergency. SS will send this information to both board an care as well as patient's sister. Medications will all be sent to: [facility] pharmacy for meds in the future to be mailed to the home. SS set up a new p.c.p. in [place] with [facility]. New appt. is scheduled for Oct.01 @ 2:15p.m. with Dr. Pena Transfer nurse is setting up home health services for nursing and safety eval with [facility]. Neurologist has agreed to sign orders for initial setup. New p.c.p. can continue further orders. Patient is aware of discharge today. SS resent inquiries to all surrounding SNF as well as [facility] facilities as an alternate. If there are any accepting facilities SS will forward this to patient's daughter. Patient will [facility] via [facility]. technical sales manager or board and care rn mds will assist and attend patient to the bank for his first months rent and deposit. Patient and daughter understood and are agreeable. Original Note: follow up note: SS spoke to Simi Croweis and she confirmed patient's discharge today. They are having a grand opening today at 9:30a.m. They would prefer patient to arrive from 11:30-12:30. technical sales manager will be on site. Transportation assistance provided. SS inquired if they can take patient to the bank for his withdrawal of money for deposit and first months rent. SS will update daughter, Usha. SS will coordinate [facility] van transport and verbally remind patient of discharge plan. Simi batista medications be sent to new pharmacy: [facility] pharmacy [place], #[phone]
--- NOTE | 2025-09-29 10:52 | PC.CC ---
Addendum entered by Devorah Layton RN 10/01/25 16:15: [facility] reached out to patients family and they declined services. Patient will not be followed by home health. Addendum entered by Sho Orellana RN 09/29/25 11:08: HH ref sent out, [facility] accepted and booked. SOC pending Original Note: spoke to ADRIAN Lyons regarding HH needs, Dr Zhu agreed w/ HH and will sign for the orders. Per Serena, she will make an appt with a PCP with CN for establishment.
[2025-09-29 14:00] VITALS: BP 123/79; PULSE 84; RESP 18; TEMP 36.2; O2SAT 94
--- NOTE | 2025-09-29 14:10 | ESDS_ITS ---
Planned Discharge Date 09/29/25 DS: Providers Provider Date of admission: 09/11/25 21:48 Primary care physician: Physician No Primary/Family Admitting Provider: Doug Johnson MD Attending Provider on Admission: Marti Brown DO Consults: 09/10/25 04:54 Health Equity Referral - Nutrition Routine Comment: Positive screening for nutrition needs. Health Equity Referral - Safety Routine Comment: Positive screening for safety needs. Health Equity Referral - Transportation Routine Comment: Positive screening for transportation needs. Health Equity Referral - Utilities Routine Comment: Positive screening for utility assistance needs. 09/10/25 05:59 Referral Physical Therapy Routine Comment: Physician Instructions: Instructions: gait and balance assessment 09/10/25 08:34 Referral Wound Care Routine Comment: 09/11/25 11:23 Consult to Neurology / Tele-Neurology Routine Comment: Encephalopathy Consulting Provider: Lenny Zhu Attending Provider on DC: Marti Brown DO Discharging Provider: Marti Brown DO Diagnosis Problem List Completed Was Problem List Reviewed/Reconciled?: Yes Discharge Assessment Assessment: Dementia Chronic alcohol use Rhabdomyolysis, resolved Back pain, resolved Patient is a 65-year-old male with past medical history of alcohol use, and osteoarthritis who presented to the ED due to foot pain. Patient was admitted to the hospital due to back pain and early rhabdomyolysis. Patient was given IV fluids and wound care followed patients for blister on foot. Patient also had back pain on presentation for which he underwent lumbar spine CT for which patient was found to have mild to moderate diffuse thoracic degenerative disc disease and diffuse moderate to advanced lumbar degenerative disease, most severe at L2-L3, L3-L4, L5-S1 had a 5 mm central lumbar disc bulge contiguous with the right and left S1 nerve root, L4-L5 had a 4 mm central lumbar disc bulge as well. Patient has no lumbar fracture. Patient has been ambulating independently without issue here in the hospital. He had no saddle anesthesia and no loss of control of his bowel bladder function.. patient is homeless and has been confused, confusing that the hospital was a hotel throughout his stay and assuming that he is currently in [place]. Suspect dementia versus wernicke's encephalopathy due to chronic alcohol abuse. Patient will placed on high-dose thiamine and due to concern that patient is unable to make some decisions on his own, neurology was consulted. Workup for progressive cognitive impairment was done to further evaluate baseline dementia/suspected nutritional deficiency. MRI was done showing moderate chronic microvascular white matter change. EEG normal. 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 Hospitalization was prolonged due to need for skilled nursing placement as he does not have capacity to make his own decisions. Patient is stable for discharge to board and care at this time. He has been started on donepezil and memantine due to dementia. Patient is to follow-up with new PCP within 1 week of discharge. Hospital Course - Hospitalist Time Spent with Patient Time attestation: Total time spent providing and/or coordinating discharge services: 30 minutes Time spent: Greater than 30 minutes Home Health Home Health Referral Orders: 09/29/25 10:48 Home Health Referral Routine Reason For Exam: back pain, rhabdomylosis Home-Bound The patient must either because of illness or injury, need the aid of supportive devices such as crutches, canes, wheelchairs, and walkers; the use of special transportation; or the assistance of another person in order to leave their place of residence; OR have a condition such that leaving his or her home is medically contraindicated. In addition, the patient also meets the following criteria: patient is normally unable to leave the home and leaving home requires considerable taxing effort. Addendum to Home Health Certification Practitioner's Certification: I certify that the patient has been under my care in the hospital and the care of attending physician (see below). We had a gmut-va-kpaq encounter on (see date below). My clinical findings indicate that the patient is home bound per the above criteria and the Home Health Services noted in these orders are medically necessary. The primary reason for the bidq-vj-uery encounter is related to the fact that the patient requires home health services. Date Certifying Bjxc-ua-Izuj Physician Encounter: 09/11/25 Physician's Name who will Assume Oversight for Services: Lenny Zhu Physician's Phone No.who will Assume Oversight for Service: INSPECTOR PLUMBING - Community Resources: Yes PT to Evaluate: No PT to evaluate and provide a treatmnet plan to increase patient's mobility and strength. Wound Care: No IV Therapy: No RN Safety Evaluation: Yes RN to evaluate and create a plan of care that will produce positive outcomes. Palliative Treatment: No Palliative treatment and evaluate the need for hospice. Home Health Aide - Personal Care: No Home Health Aide to assist with any ADL's. Discharge Results Labs Diagrams: 09/22/25 04:25 09/22/25 04:25 Exam Vital Signs Temp Pulse Resp BP Pulse Ox O2 Del Method 98 F 76 20 118/74 95 Room Air 09/29/25 06:00 09/29/25 06:00 09/29/25 06:00 09/29/25 06:00 09/29/25 06:00 09/29/25 06:00 Narrative Gen: No acute distress HEENT: NCAT, PERRLOU, Sclera anicteric, conjunctiva noninjected, oral mucosa moist without erythema Neck: Supple, full range of motion, no LAD CV: RRR, no murmurs, rubs or gallops Resp: CTAB/L, no wheezing, rhonchi or rales GI: abdomen soft, bowel sounds noted, no tenderness to palpation, no guarding or rebound tenderness, no organomegaly Skin: clean, dry, no rashes, lesions or ecchymosis Ext: no clubbing, cyanosis, or edema Neuro: A&O x2, CN II- XII intact b/l, no focal neurological deficits Discharge Plan Plan Patient Disposition: Xfer Other Disposition Comment: Board and care Patient condition on transfer: Stable Prescriptions/Referrals Prescriptions/Med Rec: New donepezil 5 mg Tablet 10 mg PO HS 30 Days Qty: 60 0RF memantine 5 mg Tablet 5 mg PO BID 30 Days Qty: 60 0RF multivitamin Tablet 1 tab PO QAM Qty: 30 0RF Referrals: No Primary/Family,Physician [Primary Care Provider] Patient/Caregiver Discharge Instructions Other Discharge Activity Instructions:: Follow up with new p.c.p. at [facility], [facility] Riri Godfrey. Dr. Pena on Oct.01 @ 2:15p.m. Education Materials: Rhabdomyolysis, ED Confusion Print Language: Cypriot Stand Alone Forms: Sandrine Award Info., Patient Portal Info Letter Discharge Order Discharge Orders: Discharge (Routine); Ordered 09/29/25 Ordered By: Marti Brown Quality Discharge Quality Measures VTE prophylaxis (Heparin 5000 units twice daily)
== END 2025-09-29 14:54 | disposition other institution (70) | DRG 557 ==
LOC: SERX 09-10 03:33 → SERHOLD 09-10 04:14 → S3SX 09-10 05:01
PROVIDERS: Physician Assistant; Student in an Organized Health Care Education/Training Program; Admitting Provider Internal Medicine; Emergency Provider Emergency Medicine; Visit Provider Internal Medicine
DX: M62.82 Rhabdomyolysis (principal); G93.41 Metabolic encephalopathy; F10.139 Alcohol abuse with withdrawal, unspecified; Z59.00 Homelessness unspecified; F03.911 Unspecified dementia, unspecified severity, with agitation; F17.210 Nicotine dependence, cigarettes, uncomplicated; M51.369 Other intervertebral disc degeneration, lumbar region without mention of lumbar back pain or lower extremity pain; M51.34 Other intervertebral disc degeneration, thoracic region; R41.89 Other symptoms and signs involving cognitive functions and awareness; S90.829A Blister (nonthermal), unspecified foot, initial encounter; I10 Essential (primary) hypertension; Z79.899 Other long term (current) drug therapy
CPT/HCPCS: 36415; 70450; 70551; 72128; 72131; 80048; 80053; 80061; 80307; 80320; 81001; 82140; 82306; 82550; 82607; 83605; 83735; 84100; 84145; 84425; 84439; 84443; 85025; 86141; 86703; 86780; 93225; 95816; 96360; 96361; 97162; G0378; J1630; J1644; J2250; J3411; J7030; J7050; A9270; G0480